=== PATIENT | female | born 1940 | race Two or more races ===

== ENCOUNTER 2016-05-20 19:50 | Emergency (ER) | payer MEDICARE, OTHER ==
[~2016-05-20] VITALS: Ht 152.4 cm; Wt 57.2 kg
[2016-05-20] MEDS ORDERED: IV NORMAL SALINE 500 ML BAG IV ONE (20:15)
[2016-05-20 20:30] LABS: BASOPHILS % (AUTO) 0.3 % (0.0-2.0); EOSINOPHILS # (AUTO) 0.3 K/uL (0.0-0.7); EOSINOPHILS % (AUTO) 5.2 % (0.0-7.0); HEMATOCRIT 34.7 % (37.0-47.0); HEMOGLOBIN 11.9 g/dL (12.0-16.0); LYMPHOCYTES # (AUTO) 2.3 K/uL (0.8-4.8); LYMPHOCYTES % (AUTO) 34.4 % (20.5-51.5); MEAN CORPUSCULAR HEMOGLOBIN 27.3 uug (27.0-31.0); MEAN CORPUSCULAR HGB CONC 34 g/dL (32.0-37.0); MEAN CORPUSCULAR VOLUME 79.8 fL (81.0-99.0); MONOCYTES # (AUTO) 0.5 K/uL (0.1-1.30); NEUTROPHILS # (AUTO) 3.5 K/uL (1.8-8.9); NEUTROPHILS % (AUTO) 52.1 % (38.5-71.5); PLATELET COUNT (AUTO) 213 K/uL (150-450); RED BLOOD CELL COUNT(AUTO) 4.34 MIL/uL (4.20-5.40); RED CELL DISTRIBUTION WIDTH 14.5 % (11.5-14.5); WHITE BLOOD COUNT (AUTO) 6.6 K/uL (4.0-11.2)
[2016-05-20] MEDS ORDERED: AMLO10TA2 PO (20:44)
[2016-05-20] MEDS ORDERED: ATOR10TA PO (20:45)
[2016-05-20] MEDS ORDERED: OMEG1CAP PO (20:46)
[2016-05-20] MEDS ORDERED: LISI-603 PO (20:47)
[2016-05-20] MEDS ORDERED: GEMF600T3 PO (20:47)
[2016-05-20] MEDS ORDERED: METF500T4 PO (20:48)
[2016-05-20] MEDS ORDERED: METO-304 PO (20:49)
[2016-05-20] MEDS ORDERED: WARF3TAB6 PO (20:50)
[2016-05-20 21:23] LABS: POTASSIUM 4.2 mmol/L (3.5-5.1)
[2016-05-20 21:27] LABS: CALCIUM 9.4 mg/dL (8.5-10.1); CREATININE 0.7 mg/dL (0.6-1.3)
[2016-05-20 21:37] LABS: BILIRUBIN,DIRECT 0.1 mg/dL (0.0-0.2); BILIRUBIN,TOTAL 0.3 mg/dL (0.1-1.0)
[2016-05-20 21:38] LABS: ALBUMIN 3.8 g/dL (3.4-5.0); TOTAL PROTEIN, SERUM 7.4 g/dL (6.4-8.2)
--- NOTE | 2016-05-20 21:46 | NUR ---
Patient discharged to home in stable conditon. Written and verbal after care instructions given. Patient verbalizes understanding of instructions. Ambulated from Er with stable gait. All belongings with patient.
[2016-05-20 21:47] VITALS: BP 131/74
== END 2016-05-20 21:47 | disposition home or self-care (01) ==
LOC: ER 19:50
DX: I48.91 Unspecified atrial fibrillation (principal); Z79.01 Long term (current) use of anticoagulants; R07.89 Other chest pain; E11.9 Type 2 diabetes mellitus without complications; Z95.0 Presence of cardiac pacemaker; Z95.2 Presence of prosthetic heart valve
CPT/HCPCS: 36415; 70030-TC; 71010; 85025; 85730; 93005; A4663

== ENCOUNTER 2016-08-31 09:35 | Emergency (ER) | payer MEDICARE, OTHER ==
[~2016-08-31] VITALS: Ht 165.1 cm; Wt 58.0 kg
[~2016-08-31 09:35] MED LIST: AMLO10TA2 PO; ATOR10TA PO; GEMF600T3 PO; LISI-603 PO; METF500T4 PO; METO-304 PO; OMEG1CAP PO; WARF3TAB6 PO
[2016-08-31] MEDS ORDERED: DICY10CA59 PO (09:49)
[2016-08-31] MEDS ORDERED: CLON1TAB4 PO (09:49)
--- NOTE | 2016-08-31 09:52 | NUR ---
PT IS IN ROOM #2A. DR CORDOVA EVALUATED THE PT.
[2016-08-31] MEDS: CLONIDINE HCL 0.2 MG TABLET PO ONE (09:55)
[2016-08-31] MEDS ORDERED: CLONIDINE HCL 0.2 MG TABLET ONE (10:05)
--- NOTE | 2016-08-31 10:58 | NUR ---
pt was d/c to home. d/c instructions given to the pt.
[2016-08-31 10:59] VITALS: BP 146/69
== END 2016-08-31 11:00 | disposition home or self-care (01) ==
LOC: ER 09:35
DX: I10 Essential (primary) hypertension (principal); E11.9 Type 2 diabetes mellitus without complications; I48.91 Unspecified atrial fibrillation; F17.200 Nicotine dependence, unspecified, uncomplicated; Z95.0 Presence of cardiac pacemaker; E78.5 Hyperlipidemia, unspecified; Z79.01 Long term (current) use of anticoagulants; Z95.2 Presence of prosthetic heart valve
CPT/HCPCS: 93005; A4663

== ENCOUNTER 2018-01-06 10:49 | Inpatient (IN) | payer MEDICARE, OTHER ==
[~2018-01-06] VITALS: Ht 152.4 cm; Wt 60.8 kg
[~2018-01-06 10:49] MED LIST changes: -AMLO10TA2 PO; +AMLO10TA6 PO; +CLON1TAB12 PO; +DICY10CA59 PO; -GEMF600T3 PO; +GEMF600T4 PO; +METF-440 PO; -METF500T4 PO; -METO-304 PO; +METO-357 PO; +WARF3TAB59 PO; -WARF3TAB6 PO
[2018-01-06] MEDS ORDERED: D-ME118S12 PO (11:07)
[2018-01-06] MEDS ORDERED: CARV12.52 PO (11:07)
[2018-01-06] MEDS ORDERED: MIRT15TA7 PO (11:07)
[2018-01-06] MEDS ORDERED: PREG50CA PO (11:07)
[2018-01-06] MEDS ORDERED: PANT40TA4 PO (11:07)
[2018-01-06] MEDS ORDERED: LORA1TAB PO (11:07)
[2018-01-06] MEDS: methylPREDNISolone SOD SUCC 125 MG/2 ML VIAL IV ONE ×2 (11:11→11:16)
[2018-01-06] MEDS ORDERED: methylPREDNISolone SOD SUCC 125 MG/2 ML VIAL ONE (11:13)
[2018-01-06] MEDS ORDERED: IPRATROPIUM BROMIDE 0.5 MG/2.5 ML NEBU NEB ONE (11:15)
[2018-01-06] MEDS ORDERED: IPRATROPIUM BROMIDE 0.5 MG/2.5 ML NEBU ONE (11:15)
[2018-01-06] MEDS ORDERED: ALBUTEROL SULFATE 2.5 MG/3 ML NEBU NEB ONE (11:15)
[2018-01-06] MEDS ORDERED: ALBUTEROL SULFATE 2.5 MG/ 0.5 ML NEBU ONE (11:15)
[2018-01-06] MEDS ORDERED: IV NORMAL SALINE 500 ML BAG IV ONE (11:15)
[2018-01-06 11:40] LABS: BASOPHILS # (AUTO) 0.1 K/uL (0.0-8.0); EOSINOPHILS # (AUTO) 0.1 K/uL (0.0-0.7); EOSINOPHILS % (AUTO) 1.1 % (0.0-7.0); HEMATOCRIT 40.6 % (31.2-41.9); HEMOGLOBIN 13.8 g/dL (10.9-14.3); LYMPHOCYTES % (AUTO) 17.5 % (20.5-51.5); MEAN CORPUSCULAR HEMOGLOBIN 27.7 uug (24.7-32.8); MEAN CORPUSCULAR HGB CONC 34 g/dL (32.3-35.6); MEAN CORPUSCULAR VOLUME 81.3 fL (75.5-95.3); MONOCYTES # (AUTO) 0.6 K/uL (2.0-10.0); MONOCYTES % (AUTO) 10.7 % (0.0-11.0); NEUTROPHILS % (AUTO) 69.7 % (38.5-71.5); PLATELET COUNT (AUTO) 206 K/uL (179-408); RED BLOOD CELL COUNT(AUTO) 4.99 MIL/uL (3.63-4.92); WHITE BLOOD COUNT (AUTO) 5.8 K/uL (3.8-11.8)
[2018-01-06 11:44] LABS: CARBON DIOXIDE 28 mmol/L (21-32); CHLORIDE 95 mmol/L (98-107); GLUCOSE 158 mg/dL (74-106); POTASSIUM 4.3 mmol/L (3.5-5.1); UREA NITROGEN, BLOOD 12 mg/dL (7-18)
[2018-01-06 11:57] LABS: ALANINE AMINOTRANSFERASE 20 U/L (14-59); ALKALINE PHOSPHATASE 43 U/L (50-136); ASPARTATE AMINOTRANSFERASE 22 U/L (15-37); BILIRUBIN,DIRECT 0.2 mg/dL (0.0-0.2); BILIRUBIN,TOTAL 0.6 mg/dL (0.2-1.0)
[2018-01-06] MEDS ORDERED: LEVOFLOXACIN 750MG/D5W 150 ML IV ONE ×2 (12:15)
[2018-01-06] MEDS ORDERED: LORAZEPAM 1 MG TABLET PO PRN (12:15)
[2018-01-06] MEDS ORDERED: DEXTROSE 50% 50 ML DISP.SYRIN IV PRN (12:30)
[2018-01-06] MEDS ORDERED: ONDANSETRON 4 MG/2 ML VIAL IV PRN (12:30)
[2018-01-06] MEDS ORDERED: LEVOFLOXACIN 750MG/D5W 750 MG in PREMIXED 1 EACH IV SCH (12:30)
[2018-01-06] MEDS ORDERED: HYDROCODONE/APAP 5-325MG TABLET PO PRN (12:30)
[2018-01-06] MEDS ORDERED: IPRATROPIUM BROMIDE 0.5 MG/2.5 ML NEBU NEB PRN (12:30)
[2018-01-06] MEDS ORDERED: ALBUTEROL SULFATE 2.5 MG/3 ML NEBU NEB PRN (12:30)
[2018-01-06] MEDS ORDERED: Z GUARD REMEDY PASTE 57 GM TUBE TOP PRN (12:30)
[2018-01-06] MEDS ORDERED: ACETAMINOPHEN 325 MG TABLET PO PRN (12:30)
[2018-01-06 13:00] VITALS: BP 166/92
[2018-01-06] MEDS: BLOOD SUGAR DIAGNOSTIC 1 EACH STRIP VI SCH ×3 (13:00→20:30)
[2018-01-06] MEDS: GUAIFENESIN LA 600 MG TABLET.SA PO SCH ×2 (13:43→20:29)
[2018-01-06] MEDS: methylPREDNISolone SOD SUCC 125 MG/2 ML VIAL IV SCH ×2 (13:46→21:58)
[2018-01-06 15:41] VITALS: BP 175/115
[2018-01-06] MEDS: LISINOPRIL 20 MG TABLET PO SCH (16:02)
[2018-01-06] MEDS: CARVEDILOL 25 MG TABLET PO SCH (17:08)
[2018-01-06] MEDS: METFORMIN HCL 500 MG TABLET PO SCH (17:08)
[2018-01-06] MEDS: INSULIN REGULAR, HUMAN 300 UNIT/3 ML VIAL SQ PRN ×2 (17:09→20:32)
[2018-01-06] MEDS ORDERED: CARVEDILOL 12.5 MG TABLET PO SCH (18:00)
[2018-01-06 18:36] LABS: *BILIRUBIN,URIN NEGATIVE (NEGATIVE); *BLOOD, URINE Trace-intact (NEGATIVE); *COLOR,URINE YELLOW (YELLOW); *KETONES,URINE NEGATIVE (NEGATIVE); *PROTEIN,URINE 2+ (NEGATIVE); *UROBILINOGEN,URINE 0.2 E.U./dl (NORMAL); LEUKOCYTE ESTERASE ,URINE TRACE (NEGATIVE); NITRITE, URINE NEGATIVE (NEGATIVE); UGLUCOSE NEGATIVE (NEGATIVE)
[2018-01-06 20:00] LABS: *CLARITY,URINE SLIGHTLY HAZY (CLEAR)
[2018-01-06 20:23] VITALS: BP 134/77
[2018-01-06] MEDS: MIRTAZAPINE 15 MG TABLET PO SCH (20:29)
[2018-01-06 20:33] LABS: MUCUS,URINE FEW /LPF (0-FEW); SQUAMOUS EPITHELIAL CELL,UR MODERATE /HPF (NONE SEEN)
[2018-01-07 00:06] VITALS: BP 132/65
[2018-01-07 04:00] VITALS: BP 149/65
[2018-01-07] MEDS: methylPREDNISolone SOD SUCC 125 MG/2 ML VIAL IV SCH ×3 (06:25→21:20)
[2018-01-07] MEDS: BLOOD SUGAR DIAGNOSTIC 1 EACH STRIP VI SCH ×4 (06:28→20:35)
[2018-01-07 06:38] LABS: BASOPHILS % (AUTO) 0.5 % (0.0-2.0); HEMATOCRIT 34.9 % (31.2-41.9); HEMOGLOBIN 12.4 g/dL (10.9-14.3); LYMPHOCYTES # (AUTO) 0.7 K/uL (20.0-40.0); MEAN CORPUSCULAR HEMOGLOBIN 27.8 uug (24.7-32.8); MEAN CORPUSCULAR HGB CONC 35 g/dL (32.3-35.6); MEAN CORPUSCULAR VOLUME 78.7 fL (75.5-95.3); MONOCYTES # (AUTO) 0.2 K/uL (2.0-10.0); MONOCYTES % (AUTO) 6.4 % (0.0-11.0); NEUTROPHILS # (AUTO) 2.5 K/uL (1.8-8.9); NEUTROPHILS % (AUTO) 72.1 % (38.5-71.5); PLATELET COUNT (AUTO) 186 K/uL (179-408); RED BLOOD CELL COUNT(AUTO) 4.44 MIL/uL (3.63-4.92); WHITE BLOOD COUNT (AUTO) 3.4 K/uL (3.8-11.8)
[2018-01-07 07:06] LABS: THYROID STIMULATING HORMONE 0.517 mIU/mL (0.358-3.740)
[2018-01-07 07:08] LABS: CARBON DIOXIDE 27 mmol/L (21-32); CHLORIDE 93 mmol/L (98-107); CHOLESTEROL 176 mg/dL (<200); CREATININE 0.8 mg/dL (0.6-1.3); GLUCOSE 173 mg/dL (74-106); HDL CHOLESTEROL 90 mg/dL (40-60); MAGNESIUM 1.3 mg/dL (1.8-2.4); PHOSPHOROUS 3.6 mg/dL (2.5-4.9); POTASSIUM 3.6 mmol/L (3.5-5.1); TRIGLYCERIDES 66 MG/DL (30-150); UREA NITROGEN, BLOOD 17 mg/dL (7-18)
[2018-01-07] MEDS: CARVEDILOL 25 MG TABLET PO SCH ×2 (08:11→17:20)
[2018-01-07] MEDS: METFORMIN HCL 500 MG TABLET PO SCH ×2 (08:11→17:18)
[2018-01-07] MEDS: MAGNESIUM SULFATE/D5W 100 ML IV SCH ×2 (08:44→09:37)
[2018-01-07] MEDS: GUAIFENESIN LA 600 MG TABLET.SA PO SCH ×2 (08:46→20:31)
[2018-01-07] MEDS: ATORVASTATIN 10 MG TABLET PO SCH (08:46)
[2018-01-07] MEDS: PANTOPRAZOLE SODIUM 40 MG TABLET.DR PO SCH (08:46)
[2018-01-07] MEDS: GEMFIBROZIL 600 MG TABLET PO SCH (08:46)
[2018-01-07] MEDS: AMLODIPINE 10 MG TABLET PO SCH (08:47)
[2018-01-07] MEDS: LISINOPRIL 20 MG TABLET PO SCH ×2 (08:47→17:19)
[2018-01-07 11:19] VITALS: BP 115/58
[2018-01-07] MEDS: INSULIN REGULAR, HUMAN 300 UNIT/3 ML VIAL SQ PRN ×3 (11:28→20:40)
[2018-01-07 15:13] VITALS: BP 109/71
[2018-01-07 19:53] VITALS: BP 103/56
[2018-01-07] MEDS: MIRTAZAPINE 15 MG TABLET PO SCH (20:31)
[2018-01-08 05:16] VITALS: BP 136/71
[2018-01-08] MEDS: methylPREDNISolone SOD SUCC 125 MG/2 ML VIAL IV SCH (06:19)
[2018-01-08] MEDS: BLOOD SUGAR DIAGNOSTIC 1 EACH STRIP VI SCH ×2 (06:26→11:35)
[2018-01-08 06:42] LABS: BASOPHILS % (AUTO) 0.1 % (0.0-2.0); HEMATOCRIT 34.7 % (31.2-41.9); HEMOGLOBIN 12.3 g/dL (10.9-14.3); LYMPHOCYTES # (AUTO) 0.9 K/uL (20.0-40.0); LYMPHOCYTES % (AUTO) 11.3 % (20.5-51.5); MEAN CORPUSCULAR HEMOGLOBIN 27.5 uug (24.7-32.8); MEAN CORPUSCULAR HGB CONC 35 g/dL (32.3-35.6); MEAN CORPUSCULAR VOLUME 77.8 fL (75.5-95.3); MONOCYTES # (AUTO) 0.4 K/uL (2.0-10.0); MONOCYTES % (AUTO) 4.6 % (0.0-11.0); NEUTROPHILS # (AUTO) 6.7 K/uL (1.8-8.9); PLATELET COUNT (AUTO) 229 K/uL (179-408); RED BLOOD CELL COUNT(AUTO) 4.46 MIL/uL (3.63-4.92)
[2018-01-08 06:54] LABS: CARBON DIOXIDE 27 mmol/L (21-32); CHLORIDE 91 mmol/L (98-107); CREATININE 0.7 mg/dL (0.6-1.3); GLUCOSE 124 mg/dL (74-106); MAGNESIUM 1.8 mg/dL (1.8-2.4); PHOSPHOROUS 4.5 mg/dL (2.5-4.9); POTASSIUM 4.1 mmol/L (3.5-5.1); UREA NITROGEN, BLOOD 21 mg/dL (7-18)
[2018-01-08] MEDS: CARVEDILOL 25 MG TABLET PO SCH (07:56)
[2018-01-08] MEDS: GUAIFENESIN LA 600 MG TABLET.SA PO SCH (08:00)
[2018-01-08] MEDS: GEMFIBROZIL 600 MG TABLET PO SCH (08:00)
[2018-01-08] MEDS: LISINOPRIL 20 MG TABLET PO SCH (08:00)
[2018-01-08] MEDS: METFORMIN HCL 500 MG TABLET PO SCH (08:00)
[2018-01-08] MEDS: ATORVASTATIN 10 MG TABLET PO SCH (08:00)
[2018-01-08] MEDS: AMLODIPINE 10 MG TABLET PO SCH (08:00)
[2018-01-08] MEDS: PANTOPRAZOLE SODIUM 40 MG TABLET.DR PO SCH (08:00)
[2018-01-08] MEDS ORDERED: LEVO500T2 PO (10:55)
[2018-01-08 11:00] VITALS: BP 113/51
[2018-01-08] MEDS: INSULIN REGULAR, HUMAN 300 UNIT/3 ML VIAL SQ PRN (11:43)
[2018-01-08] MEDS ORDERED: LEVOFLOXACIN 750 MG TABLET PO SCH (12:00)
[2018-01-08] MEDS ORDERED: LEVOFLOXACIN 750MG/D5W 750 MG in PREMIXED 1 EACH IV SCH (12:00)
[2018-01-08 13:31] VITALS: BP 113/65
== END 2018-01-08 12:30 | disposition home or self-care (01) | DRG 202 ==
LOC: ER 10:52 → TELE 12:28 → MED 01-07 20:15
DX: J20.9 Acute bronchitis, unspecified (principal); E87.1 Hypo-osmolality and hyponatremia; I48.91 Unspecified atrial fibrillation; Z95.3 Presence of xenogenic heart valve; E11.9 Type 2 diabetes mellitus without complications; E78.5 Hyperlipidemia, unspecified; I10 Essential (primary) hypertension; I70.0 Atherosclerosis of aorta; T45.515A Adverse effect of anticoagulants, initial encounter; Y92.019 Unspecified place in single-family (private) house as the place of occurrence of the external cause; R79.1 Abnormal coagulation profile; Z95.0 Presence of cardiac pacemaker; Z79.84 Long term (current) use of oral hypoglycemic drugs
CPT/HCPCS: 36415; 70030-TC; 71045; 83605; 83735; 84100; 84443; 85025; 85610; 85730; 87040; 87086; 87400; 93005; 93307; A4663; G0378; J1815; J1956; J2930; J3475; J3490; J3590; J7040

== ENCOUNTER 2018-03-29 21:39 | Inpatient (IN) | payer MEDICARE, OTHER ==
[~2018-03-29] VITALS: Ht 165.1 cm; Wt 61.2 kg
[~2018-03-29 21:39] MED LIST changes: -AMLO10TA6 PO; +AMLO10TA7 PO; +CARV12.52 PO; -CLON1TAB12 PO; +D-ME118S12 PO; -DICY10CA59 PO; -GEMF600T4 PO; +GEMF600T5 PO; +LEVO500T2 PO; +LORA1TAB PO; -METO-357 PO; +MIRT15TA7 PO; -OMEG1CAP PO; +PANT40TA4 PO; +PREG50CA PO
--- NOTE | 2018-03-29 21:56 | NUR ---
Pt. ambulated into ED w/ family w/ c/o posterior R side ASHER since this morning, states she was diaphoretic 30 min. ago, skin is warm/dry/turgor WDL, denies visual defecits/changes, facial movements and strength are equal/symmetrical bilat., family at bedside, Addendum: 03/30/18 at 0009 by BKSCOTT Pt. ESSIE RA 909, not family
[2018-03-29] MEDS ORDERED: FOLI1TAB16 PO (22:02)
[2018-03-29] MEDS ORDERED: ESCI5TAB PO (22:02)
[2018-03-29] MEDS ORDERED: FERR325T24 PO (22:02)
[2018-03-29] MEDS ORDERED: MORPHINE SULFATE 2 MG/1 ML DISP.SYRIN IV ONE (22:15)
[2018-03-29] MEDS ORDERED: hydrALAZINE HCL 20 MG/1 ML VIAL IV ONE ×2 (22:15→23:00)
[2018-03-29] MEDS ORDERED: ONDANSETRON 4 MG/2 ML VIAL IV ONE (22:15)
[2018-03-29] MEDS ORDERED: ONDANSETRON 4 MG/2 ML VIAL ONE ×3 (22:28→23:57)
[2018-03-29] MEDS ORDERED: MORPHINE SULFATE 4 MG/1 ML DISP.SYRIN ONE (22:28)
--- NOTE | 2018-03-29 22:28 | NUR ---
Rad. tech. here for CXR
[2018-03-29 22:36] LABS: BASOPHILS % (AUTO) 0.7 % (0.0-2.0); CARBON DIOXIDE 29 mmol/L (21-32); CHLORIDE 91 mmol/L (98-107); CREATININE 0.7 mg/dL (0.6-1.3); EOSINOPHILS # (AUTO) 0.4 K/uL (0.0-0.7); EOSINOPHILS % (AUTO) 6.1 % (0.0-7.0); GLUCOSE 148 mg/dL (74-106); HEMATOCRIT 34.1 % (31.2-41.9); HEMOGLOBIN 11.6 g/dL (10.9-14.3); LYMPHOCYTES # (AUTO) 2.2 K/uL (20.0-40.0); LYMPHOCYTES % (AUTO) 31.7 % (20.5-51.5); MEAN CORPUSCULAR HEMOGLOBIN 26.7 uug (24.7-32.8); MEAN CORPUSCULAR HGB CONC 34 g/dL (32.3-35.6); MEAN CORPUSCULAR VOLUME 78.5 fL (75.5-95.3); MONOCYTES # (AUTO) 0.7 K/uL (2.0-10.0); MONOCYTES % (AUTO) 9.7 % (0.0-11.0); NEUTROPHILS # (AUTO) 3.6 K/uL (1.8-8.9); NEUTROPHILS % (AUTO) 51.8 % (38.5-71.5); PLATELET COUNT (AUTO) 226 K/uL (179-408); POTASSIUM 3.7 mmol/L (3.5-5.1); RED BLOOD CELL COUNT(AUTO) 4.35 MIL/uL (3.63-4.92); UREA NITROGEN, BLOOD 9 mg/dL (7-18)
[2018-03-29] MEDS ORDERED: hydrALAZINE HCL 20 MG/1 ML VIAL ONE (22:38)
[2018-03-29 22:47] LABS: ALANINE AMINOTRANSFERASE 18 U/L (14-59); ALKALINE PHOSPHATASE 51 U/L (50-136); ASPARTATE AMINOTRANSFERASE 19 U/L (15-37); BILIRUBIN,DIRECT 0.2 mg/dL (0.0-0.2); BILIRUBIN,TOTAL 0.5 mg/dL (0.2-1.0); TOTAL PROTEIN, SERUM 8.2 g/dL (6.4-8.2)
--- NOTE | 2018-03-29 22:47 | NUR ---
Pt. taken off unit for CT
[2018-03-29] MEDS ORDERED: ACETAMINOPHEN ES 500 MG TABLET PO ONE (23:30)
[2018-03-29] MEDS ORDERED: PANTOPRAZOLE SODIUM 40 MG VIAL ONE (23:52)
[2018-03-29] MEDS ORDERED: ACETAMINOPHEN ES 500 MG TABLET ONE (23:52)
[2018-03-30] MEDS ORDERED: PANTOPRAZOLE SODIUM 40 MG VIAL IV ONE
[2018-03-30] MEDS ORDERED: ONDANSETRON 4 MG/2 ML VIAL IV ONE
--- NOTE | 2018-03-30 00:05 | NUR ---
Gave pt. warm blanket, c/o gas/bloating - notified MD -IV meds given, IV patent - no s/s infiltration/phlebitis,
--- NOTE | 2018-03-30 00:40 | NUR ---
Pt. resting in bed w/ eyes closed, NAD, IV patent and intact w/o any s/s infiltration/phlebitis, VSS, NAD,
--- NOTE | 2018-03-30 01:19 | NUR ---
Gave report to Laura, pt. to admit to tele 203
--- NOTE | 2018-03-30 01:45 | NUR ---
Pt. taken off unit via stretcher, taken to room 203 and given to care of Laura PIKE, NAD, VSS
[2018-03-30 01:51] VITALS: BP 184/76
[2018-03-30] MEDS ORDERED: MAGNESIUM HYDROXIDE 30 ML LIQUID UDC PO PRN (02:00)
[2018-03-30] MEDS ORDERED: MIRTAZAPINE 15 MG TABLET PO SCH (02:00)
[2018-03-30] MEDS ORDERED: LORAZEPAM 1 MG TABLET PO PRN (02:00)
[2018-03-30] MEDS ORDERED: ACETAMINOPHEN 325 MG TABLET PO PRN (02:00)
[2018-03-30] MEDS ORDERED: ONDANSETRON 4 MG/2 ML VIAL IV PRN (02:00)
[2018-03-30] MEDS ORDERED: LISINOPRIL 20 MG TABLET PO SCH (02:00)
[2018-03-30] MEDS ORDERED: ZOLPIDEM 5 MG TABLET PO PRN (02:00)
[2018-03-30] MEDS ORDERED: HYDROCODONE/APAP 5-325MG TABLET PO PRN (02:00)
--- NOTE | 2018-03-30 02:00 | NUR ---
RECEIVED PATIENT VIA GURNEY FROM ER. PATIENT IS A/O X4. PATIENT DENIES ANY PAIN OR DISCOMFORT. NO RESP. DISTRESS NOTED. H/L INTACT AND PATENT NOTED TO LEFT AC #20 GAUGE. PATIENT BLOOD PRESSURE, 184/76, ALL OTHER VS WNL. PATIENT IS ON TELE V-PACING. CALLED OUT TO PATIENCE DIETRICH-MACHINE GROUP LEADER FOR ADMISSION ORDERS, AND TO INFORM OF ELEVATED BP. ORIENTED TO ROOM AND CALL LIGHT. CALL LIGHT IN REACH. ALL NEEDS ATTENDED. WILL CONTINUE TO MONITOR.
[2018-03-30] MEDS: NICOTINE 21 MG/24HR PATCH TD SCH ×2 (02:10→09:00)
[2018-03-30] MEDS ORDERED: hydrALAZINE HCL 20 MG/1 ML VIAL IV PRN (02:15)
[2018-03-30] MEDS: CARVEDILOL 12.5 MG TABLET PO SCH ×3 (02:20→17:51)
--- NOTE | 2018-03-30 02:20 | NUR ---
PATIENT GIVEN BLOOD PRESSURE MEDICATION ORDERED PER RUSSEL GONSALEZ. WILL CONTINUE TO MONITOR AND ASSESS VITALS. CALL LIGHT IN REACH. IVF INFUSING WELL TO LEFT AC #20 GAUGE.
[2018-03-30] MEDS: IV NS 1000 ML 1,000 ML IV PRN ×2 (02:25→18:01)
[2018-03-30] MEDS ORDERED: DEXTROSE 50% 50 ML DISP.SYRIN IV PRN (02:45)
[2018-03-30 04:47] VITALS: BP 131/53
--- NOTE | 2018-03-30 06:11 | NUR ---
PATIENT ASLEEP IN BED. VSS. ON TELE V-PACING. IVF INFUSING WELL. CALL LIGHT IN REACH. ALL NEEDS ATTENDED. WILL CONTINUE TO MONITOR.
[2018-03-30] MEDS: BLOOD SUGAR DIAGNOSTIC 1 EACH STRIP VI SCH ×4 (06:31→20:18)
[2018-03-30 06:43] LABS: BASOPHILS % (AUTO) 0.7 % (0.0-2.0); EOSINOPHILS # (AUTO) 0.3 K/uL (0.0-0.7); EOSINOPHILS % (AUTO) 4.7 % (0.0-7.0); HEMATOCRIT 32.1 % (31.2-41.9); HEMOGLOBIN 10.8 g/dL (10.9-14.3); LYMPHOCYTES # (AUTO) 1.8 K/uL (20.0-40.0); LYMPHOCYTES % (AUTO) 30.9 % (20.5-51.5); MEAN CORPUSCULAR HEMOGLOBIN 26.5 uug (24.7-32.8); MEAN CORPUSCULAR HGB CONC 34 g/dL (32.3-35.6); MEAN CORPUSCULAR VOLUME 78.5 fL (75.5-95.3); MONOCYTES # (AUTO) 0.6 K/uL (2.0-10.0); MONOCYTES % (AUTO) 10.2 % (0.0-11.0); NEUTROPHILS # (AUTO) 3.1 K/uL (1.8-8.9); NEUTROPHILS % (AUTO) 53.5 % (38.5-71.5); PLATELET COUNT (AUTO) 212 K/uL (179-408); RED BLOOD CELL COUNT(AUTO) 4.08 MIL/uL (3.63-4.92); WHITE BLOOD COUNT (AUTO) 5.9 K/uL (3.8-11.8)
[2018-03-30 06:56] LABS: CARBON DIOXIDE 29 mmol/L (21-32); CHLORIDE 94 mmol/L (98-107); CHOLESTEROL 154 mg/dL (<200); CREATININE 0.6 mg/dL (0.6-1.3); GLUCOSE 132 mg/dL (74-106); HDL CHOLESTEROL 89 mg/dL (40-60); MAGNESIUM 1.5 mg/dL (1.8-2.4); PHOSPHOROUS 3.8 mg/dL (2.5-4.9); POTASSIUM 3.5 mmol/L (3.5-5.1); TRIGLYCERIDES 75 MG/DL (30-150); UREA NITROGEN, BLOOD 7 mg/dL (7-18)
--- NOTE | 2018-03-30 07:30 | NUR ---
RECEIVED A 77 Y/O FEMALE PT A CASE OF HTN, PT ALERT OX3, IN BED, PT CONNECTED TO TELE BOX, HAS A LT CHEST PACEMAKER SHOWING V-PACING RATE 66BPM. PT HAS A RT FOREARM IV PATENT, RECEIVING IVF NS@75ML/HR. USES BATHROOM PRIVILEGES.
[2018-03-30 08:00] VITALS: BP 185/74
[2018-03-30] MEDS: FOLIC ACID 1 MG TABLET PO SCH (08:18)
[2018-03-30] MEDS: AMLODIPINE 10 MG TABLET PO SCH (08:18)
[2018-03-30] MEDS: ESCITALOPRAM OXALATE 10 MG TABLET PO SCH (08:18)
[2018-03-30] MEDS: PANTOPRAZOLE SODIUM 40 MG TABLET.DR PO SCH (08:19)
[2018-03-30] MEDS: FERROUS SULFATE 325 MG TABEC PO SCH (08:19)
[2018-03-30] MEDS: INSULIN REGULAR, HUMAN 300 UNIT/3 ML VIAL SQ PRN ×3 (08:26→20:18)
[2018-03-30] MEDS ORDERED: WARFARIN SODIUM 3 MG TABLET PO SCH (09:00)
[2018-03-30] MEDS ORDERED: PANTOPRAZOLE SODIUM 40 MG TABLET.DR PO SCH (09:00)
--- NOTE | 2018-03-30 09:00 | NUR ---
PATIENT REFUSED NICOTINE PATCH, STATED SHE DOESNT HAVE THE URGE TO SMOKE.
[2018-03-30] MEDS ORDERED: LOSARTAN POTASSIUM 50 MG TABLET PO SCH (10:30)
[2018-03-30] MEDS ORDERED: MAGNESIUM SULFATE 2 GM in IV DEXTROSE 5% 100 ML IV ONE (11:00)
--- NOTE | 2018-03-30 11:00 | NUR ---
SEEN BY CARYL TILLMAN, ALL UPDATES GIVEN , NEW MEDICATION PUT IN, ASKED TO INFORM HIM AFTER 3PM ABOUT BP IF ACCEPTABLE SBP <150. HE WOULD CONSIDER DISCHARGING HER
[2018-03-30] MEDS: MAGNESIUM SULFATE/D5W 100 ML IV SCH ×2 (11:21→13:06)
[2018-03-30] MEDS: PRAZOSIN HCL 1 MG CAPSULE PO SCH (11:47)
[2018-03-30] MEDS: LISINOPRIL 20 MG TABLET PO SCH ×2 (11:48→22:50)
[2018-03-30 11:50] VITALS: BP 164/70
[2018-03-30 15:56] VITALS: BP 140/60
--- NOTE | 2018-03-30 17:30 | NUR ---
LAYNEYESSY INFORMED ABOUT PATIENTS BP STILL FLUCTUATING AND BEING HIGH, ORDERED TO LEAVE THE PATIENT OVERNIGHT AND RE-ASSESS PATIENT IN THE MORNING.
[2018-03-30] MEDS: WARFARIN SODIUM 1 MG TABLET PO SCH (17:51)
[2018-03-30 20:03] VITALS: BP 146/57
--- NOTE | 2018-03-30 20:30 | NUR ---
RECEIVED PATIENT AWAKE IN BED. A/O X4. DENIES PAIN OR DISCOMFORT. ON TELE V-PACING IN THE 60'S. IVF INFUSING WELL TO LEFT AC #20 GAUGE. NO RESP. DISTRESS NOTED. BLOOD SUGAR- 135. PATIENT REFUSED FOR INSULIN. CALL LIGHT IN REACH. ALL NEEDS ATTENDED. WILL CONTINUE TO MONITOR AND ASSESS.
[2018-03-30] MEDS: MIRTAZAPINE 15 MG TABLET PO SCH (21:24)
[2018-03-31] VITALS (9 sets, daily range): BP systolic 106–199; BP diastolic 44–83
--- NOTE | 2018-03-31 | NUR ---
PATIENT NPO ORDERED FOR RENAL US IN AM.
--- NOTE | 2018-03-31 01:16 | NUR ---
PATIENTS IV NOTED TO LEFT AC, INFILTRATED AND RED. REMOVED. PATIENT REFUSING FOR IV REINSERTION OR FOR FLUIDS AT THIS TIME. TANKROOM TENDER NOTIFIED.
--- NOTE | 2018-03-31 05:51 | NUR ---
PATIENT ASLEEP IN BED. EASILY AROUSABLE. SLEPT WELL THROUGHOUT THE NIGHT. KEPT NPO ORDERED FOR RENAL US IN AM. DENIES PAIN. VSS. ON TELE V-PACING. CALL LIGHT IN REACH. ALL NEEDS ATTENDED. WILL CONTINUE TO MONITOR AND ASSESS.
[2018-03-31] MEDS: PANTOPRAZOLE SODIUM 40 MG TABLET.DR PO SCH (06:09)
[2018-03-31] MEDS: BLOOD SUGAR DIAGNOSTIC 1 EACH STRIP VI SCH ×4 (06:33→20:12)
[2018-03-31 06:41] LABS: BASOPHILS % (AUTO) 0.8 % (0.0-2.0); CARBON DIOXIDE 29 mmol/L (21-32); CHLORIDE 96 mmol/L (98-107); CREATININE 0.7 mg/dL (0.6-1.3); EOSINOPHILS # (AUTO) 0.2 K/uL (0.0-0.7); EOSINOPHILS % (AUTO) 3.9 % (0.0-7.0); GLUCOSE 115 mg/dL (74-106); HEMATOCRIT 33.9 % (31.2-41.9); HEMOGLOBIN 11.2 g/dL (10.9-14.3); LYMPHOCYTES % (AUTO) 33.7 % (20.5-51.5); MEAN CORPUSCULAR HEMOGLOBIN 25.9 uug (24.7-32.8); MEAN CORPUSCULAR HGB CONC 33 g/dL (32.3-35.6); MEAN CORPUSCULAR VOLUME 78.5 fL (75.5-95.3); MONOCYTES # (AUTO) 0.6 K/uL (2.0-10.0); MONOCYTES % (AUTO) 9.6 % (0.0-11.0); PLATELET COUNT (AUTO) 220 K/uL (179-408); POTASSIUM 3.4 mmol/L (3.5-5.1); RED BLOOD CELL COUNT(AUTO) 4.31 MIL/uL (3.63-4.92); UREA NITROGEN, BLOOD 6 mg/dL (7-18); WHITE BLOOD COUNT (AUTO) 5.9 K/uL (3.8-11.8)
[2018-03-31 06:55] LABS: THYROID STIMULATING HORMONE 1.033 mIU/mL (0.358-3.740)
--- NOTE | 2018-03-31 07:20 | NUR ---
RECEIVED PATIENT LYING IN BED. IN NO ACUTE DISTRESS. NO COMPLAINTS OF PAIN OR SOB. A LITTLE ANXIOUS BECAUSE SHE HASN'T EATEN. IS CURRENTLY NPO BECAUSE OF PROCEDURE FOR RENAL US. SAFETY MEASURES INITIATED. BED IS LOW AND LOCKED, CALL LIGHT WITHIN REACH/ WILL CONTINUE TO MONITOR.
[2018-03-31] MEDS: ESCITALOPRAM OXALATE 10 MG TABLET PO SCH (09:00)
[2018-03-31] MEDS: NICOTINE 21 MG/24HR PATCH TD SCH (09:00)
[2018-03-31] MEDS ORDERED: POTASSIUM CHLORIDE 10 MEQ TAB.PRT.SR PO SCH (09:00)
[2018-03-31] MEDS: CARVEDILOL 12.5 MG TABLET PO SCH ×2 (09:59→17:52)
[2018-03-31] MEDS: FOLIC ACID 1 MG TABLET PO SCH (09:59)
--- NOTE | 2018-03-31 10:00 | NUR ---
RENAL US DONE. ALL MORNING MEDICATIONS GIVEN. FAMILY IS AT BEDSIDE. WILL CONTINUE TO MONITOR.
[2018-03-31] MEDS: FERROUS SULFATE 325 MG TABEC PO SCH (10:01)
[2018-03-31] MEDS: AMLODIPINE 10 MG TABLET PO SCH (10:01)
[2018-03-31] MEDS: LISINOPRIL 20 MG TABLET PO SCH ×2 (10:01→20:07)
[2018-03-31] MEDS: PRAZOSIN HCL 1 MG CAPSULE PO SCH (10:04)
[2018-03-31] MEDS: SPIRONOLACTONE 25 MG TABLET PO SCH (11:04)
[2018-03-31] MEDS: INSULIN REGULAR, HUMAN 300 UNIT/3 ML VIAL SQ PRN (11:22)
[2018-03-31] MEDS ORDERED: hydrALAZINE HCL 10 MG TABLET PO PRN (11:45)
[2018-03-31] MEDS: WARFARIN SODIUM 1 MG TABLET PO SCH (17:08)
[2018-03-31] MEDS ORDERED: CARVEDILOL 12.5 MG TABLET PO ONE (18:15)
--- NOTE | 2018-03-31 18:36 | NUR ---
Discussed with Dr Jalloh patient blood pressure this am then dramatic drop post meds, concerned with additional dose of Coreg 12.5mg once ordered now however vitals stable at this time. per MD do not administer continue to monitor.
--- NOTE | 2018-03-31 19:20 | NUR ---
Received patient lying in bed. Appears comfortable. AAOX4. In no acute distress. Denies any pain or SOB. Needs assessed and attended to. Safety measure initiated and call gonsalves within reach.
[2018-03-31] MEDS: MIRTAZAPINE 15 MG TABLET PO SCH (20:07)
[2018-04-01] VITALS (9 sets, daily range): BP systolic 90–187; BP diastolic 27–79
[2018-04-01] MEDS: PANTOPRAZOLE SODIUM 40 MG TABLET.DR PO SCH (06:02)
[2018-04-01 06:10] LABS: CORTISOL 11.5 ug/dL (.)
--- NOTE | 2018-04-01 06:12 | NUR ---
Patient slept through out the night. No complain of pain or SOB. Needs attended to and met. Safety measure maintained and call gonsalves within reach.
[2018-04-01] MEDS: BLOOD SUGAR DIAGNOSTIC 1 EACH STRIP VI SCH ×2 (06:32→12:17)
--- NOTE | 2018-04-01 06:45 | NUR ---
Patient refused to have blood work done this morning. Education provided but continue to refuse.
[2018-04-01] MEDS ORDERED: CARVEDILOL 12.5 MG TABLET PO SCH ×2 (08:00)
[2018-04-01] MEDS ORDERED: CARVEDILOL 25 MG TABLET PO SCH ×2 (08:00)
[2018-04-01] MEDS: SPIRONOLACTONE 25 MG TABLET PO SCH (08:31)
[2018-04-01] MEDS: AMLODIPINE 10 MG TABLET PO SCH (08:32)
[2018-04-01] MEDS: ESCITALOPRAM OXALATE 10 MG TABLET PO SCH (08:32)
[2018-04-01] MEDS: PRAZOSIN HCL 1 MG CAPSULE PO SCH (08:32)
[2018-04-01] MEDS: LISINOPRIL 20 MG TABLET PO SCH (08:32)
[2018-04-01] MEDS: FERROUS SULFATE 325 MG TABEC PO SCH (08:33)
[2018-04-01] MEDS: FOLIC ACID 1 MG TABLET PO SCH (08:33)
[2018-04-01] MEDS: NICOTINE 21 MG/24HR PATCH TD SCH (08:33)
--- NOTE | 2018-04-01 10:03 | NUR ---
PATIENT REPORTED FEELING DIZZY WHEN AMBULATING, VITALS CHECKED BLOOD PRESSURE.90/27 , PATIENT ASSISTED TO LIE BACK DOWN, RECHECKED BLOOD PRESSURE 102/35. Addendum: 04/01/18 at 1006 by LARISSA DURBIN RN HEART RATE 61.
--- NOTE | 2018-04-01 10:15 | NUR ---
blood pressure rechecked 117/45, hr 62
[2018-04-01] MEDS ORDERED: IV NORMAL SALINE 250 ML BAG IV ONE (11:00)
[2018-04-01] MEDS: INSULIN REGULAR, HUMAN 300 UNIT/3 ML VIAL SQ PRN (12:19)
--- NOTE | 2018-04-01 13:45 | NUR ---
IV access removed ID band removed
--- NOTE | 2018-04-01 13:55 | NUR ---
DISCHARGE NOTE patient vitals stable. orthostatics taken, patient instructed on discharge and follow up care with PCP and director of medical staff services within one week, patient daughter in law Kayce at bedside, verbalized they will make follow up appt, refuse to have appt made, verbalized understanding, patient questions and concerns addressed, belongings returned and accounted for. patient discharged with family.
[2018-04-04 11:06] LABS: RENIN 0.305 ng/mL/hr (0.167-5.380)
[2018-04-06 06:06] LABS: ALDOSTERONE 3.2 ng/dL (0.0-30.0)
== END 2018-04-01 13:54 | disposition home or self-care (01) | DRG 305 ==
LOC: ER 21:41 → TELE 03-30 01:23 → MED 03-31 18:30
PROVIDERS: ADMIT Nurse Practitioner Acute Care; ATTEND Nurse Practitioner Acute Care
DX: I16.0 Hypertensive urgency (principal); E87.1 Hypo-osmolality and hyponatremia; E87.8 Other disorders of electrolyte and fluid balance, not elsewhere classified; Z95.0 Presence of cardiac pacemaker; E11.9 Type 2 diabetes mellitus without complications; Z95.2 Presence of prosthetic heart valve; I48.2 Chronic atrial fibrillation; I34.0 Nonrheumatic mitral (valve) insufficiency; Z79.01 Long term (current) use of anticoagulants; Z79.84 Long term (current) use of oral hypoglycemic drugs; E83.42 Hypomagnesemia; E87.6 Hypokalemia; I95.1 Orthostatic hypotension; I70.0 Atherosclerosis of aorta; Z82.49 Family history of ischemic heart disease and other diseases of the circulatory system; F41.9 Anxiety disorder, unspecified; E86.9 Volume depletion, unspecified
CPT/HCPCS: 36415; 70030-TC; 70450; 71045; 82088; 82533; 83735; 84100; 84244; 84300; 84443; 84550; 85025; 85610; 85730; 93005; A4663; A9150; C9113; G0378; J0360; J1815; J2270; J2405; J3475; J7030; J7050; J7060

== ENCOUNTER 2019-03-06 00:04 | Inpatient (IN) | payer MEDICARE, OTHER ==
[~2019-03-06] VITALS: Ht 160 cm; Wt 59.9 kg
[~2019-03-06 00:04] MED LIST changes: -ATOR10TA PO; -D-ME118S12 PO; +ESCI5TAB PO; +FERR325T24 PO; +FOLI1TAB16 PO; -LEVO500T2 PO; -PREG50CA PO
--- NOTE | 2019-03-06 00:15 | NUR ---
Dr. Low at bedside for MSE.
[2019-03-06] MEDS ORDERED: methylPREDNISolone SOD SUCC 125 MG/2 ML VIAL ONE (00:38)
--- NOTE | 2019-03-06 00:41 | NUR ---
Respiratory at bedside.
[2019-03-06] MEDS ORDERED: ALBUTEROL SULFATE 2.5 MG/3 ML NEBU ONE (00:42)
--- NOTE | 2019-03-06 00:43 | NUR ---
Xray at bedside.
[2019-03-06] MEDS ORDERED: ALBUTEROL SULFATE 2.5 MG/ 0.5 ML NEBU NEB ONE (00:45)
[2019-03-06] MEDS ORDERED: IV NORMAL SALINE 500 ML BAG IV ONE (00:45)
[2019-03-06] MEDS ORDERED: methylPREDNISolone SOD SUCC 125 MG/2 ML VIAL IV ONE (00:45)
[2019-03-06 00:47] LABS: BASOPHILS # (AUTO) 0.1 K/uL (0.0-8.0); EOSINOPHILS # (AUTO) 0.4 K/uL (0.0-0.7); EOSINOPHILS % (AUTO) 6.2 % (0.0-7.0); HEMATOCRIT 26.1 % (31.2-41.9); HEMOGLOBIN 8.4 g/dL (10.9-14.3); LYMPHOCYTES # (AUTO) 1.2 K/uL (20.0-40.0); LYMPHOCYTES % (AUTO) 17.1 % (20.5-51.5); MEAN CORPUSCULAR HGB CONC 32 g/dL (32.3-35.6); MEAN CORPUSCULAR VOLUME 71.5 fL (75.5-95.3); MONOCYTES # (AUTO) 0.7 K/uL (2.0-10.0); MONOCYTES % (AUTO) 10.2 % (0.0-11.0); NEUTROPHILS # (AUTO) 4.6 K/uL (1.8-8.9); NEUTROPHILS % (AUTO) 65.5 % (38.5-71.5); PLATELET COUNT (AUTO) 188 K/uL (179-408); RED BLOOD CELL COUNT(AUTO) 3.66 MIL/uL (3.63-4.92)
[2019-03-06] MEDS ORDERED: ASCO500C18 PO (00:48)
[2019-03-06] MEDS ORDERED: UMEC1BLS IH (00:48)
[2019-03-06] MEDS ORDERED: HYOS0.1275 SL (00:48)
[2019-03-06] MEDS ORDERED: ATOR20TA PO (00:48)
[2019-03-06] MEDS ORDERED: DICY20TA11 PO (00:48)
[2019-03-06] MEDS ORDERED: LISI-603 PO (00:48)
[2019-03-06] MEDS ORDERED: SIME125C81 PO (00:48)
[2019-03-06] MEDS ORDERED: IPRA0.2S6 NEB (00:48)
[2019-03-06] MEDS ORDERED: FURO-152 PO (00:48)
[2019-03-06] MEDS ORDERED: LORA0.5T PO (00:48)
[2019-03-06] MEDS ORDERED: ISOS30TA PO (00:48)
[2019-03-06] MEDS ORDERED: FLUT100B3 IH (00:48)
[2019-03-06] MEDS ORDERED: LINA145C PO (00:48)
[2019-03-06] MEDS ORDERED: ERGO500014 PO (00:48)
[2019-03-06] MEDS ORDERED: MAGN250T10 PO (00:48)
[2019-03-06] MEDS ORDERED: METO5TAB87 PO (00:48)
[2019-03-06 00:53] LABS: CREATININE 0.7 mg/dL (0.6-1.3); POTASSIUM 4.2 mmol/L (3.5-5.1)
[2019-03-06 00:54] LABS: ABG BASE EXCESS -1.9 mmol/L; ABG HCO3 23.2 mmol/L; ABG PCO2 40.5 mmHg (35.0-45.0); ABG PH 7.375 (7.350-7.450); ABG PO2 61.1 mmHg (75.0-100.0); ABG SITE LEFT RADIAL; COHb 1.7 % (0.5-1.5); MetHb 0.4 % (0.0-1.5); O2Hb 86.4 % (94.0-97.0); VENT MODE Nasal Cannula
[2019-03-06 01:05] LABS: BILIRUBIN,DIRECT 0.2 mg/dL (0.0-0.2); BILIRUBIN,TOTAL 0.5 mg/dL (0.2-1.0); TOTAL PROTEIN, SERUM 7.6 g/dL (6.4-8.2)
[2019-03-06] MEDS ORDERED: FUROSEMIDE 40 MG/4 ML VIAL ONE (01:43)
[2019-03-06] MEDS ORDERED: FUROSEMIDE 40 MG/4 ML VIAL IV ONE (01:45)
--- NOTE | 2019-03-06 01:45 | NUR ---
Pt states still have trouble breathing. notified.
--- NOTE | 2019-03-06 01:55 | NUR ---
Respiratory at bedside.
--- NOTE | 2019-03-06 02:31 | NUR ---
Called [facility] to page Dr. Wyatt.
--- NOTE | 2019-03-06 02:44 | NUR ---
Dr. Low on panel call with Dr. Wyatt. Patient accepted for admission to [facility], diagnosis: COPD exacerbation, Afib, and CHF.
[2019-03-06] MEDS ORDERED: ACETAMINOPHEN 325 MG TABLET PO PRN (02:45)
[2019-03-06] MEDS ORDERED: Z GUARD REMEDY PASTE 57 GM TUBE TOP PRN (02:45)
[2019-03-06] MEDS ORDERED: ONDANSETRON 4 MG/2 ML VIAL IV PRN (02:45)
[2019-03-06] MEDS ORDERED: MAGNESIUM HYDROXIDE 30 ML LIQUID UDC PO PRN (02:45)
--- NOTE | 2019-03-06 03:07 | NUR ---
Report given to Alaina PIKE Tele.
[2019-03-06] MEDS ORDERED: LORAZEPAM 1 MG TABLET PO PRN (03:15)
[2019-03-06] MEDS ORDERED: METOCLOPRAMIDE HCL 5 MG TABLET PO PRN ×2 (03:15→07:30)
--- NOTE | 2019-03-06 05:16 | NUR ---
patient received from ER. ID band on. Tele monitor on and v pacing with underlying a-fib. belonging list completed. admissions process complete. no signs of acute distress and v/s stable throughout shift. safety and comfort measures provided at all times. BP at 169/[address] Martel called for high BP. no new orders at this time. will continue to monitor and endorse care accordingly to morning nurse.
[2019-03-06] MEDS ORDERED: IPRATROPIUM BROMIDE 0.5 MG/2.5 ML NEBU NEB SCH ×2 (06:00→13:30)
[2019-03-06 06:29] VITALS: BP 169/50
[2019-03-06] MEDS: ALBUTEROL SULFATE 2.5 MG/3 ML NEBU NEB PRN (06:36)
[2019-03-06] MEDS: PANTOPRAZOLE SODIUM 40 MG TABLET.DR PO SCH (06:37)
--- NOTE | 2019-03-06 06:53 | NUR ---
patient took out her Bipap mask. o2 sat at 91. patient is stable. will endorse to morning nurse to place back on if needed.
--- NOTE | 2019-03-06 07:30 | NUR ---
PATIENT IS AWAKE ALERT AND ORIENTED WAS BEING SEEN BY THE RESPIRATORY THERAPIST WHO PLACED HER ON THE NASAL CANULA WAS ON BIPAP AND HER SATS WERE OKAY AT THIS TIME WILL CONTINUE TO OBSERVE FOR RESPIRATORY DISTRESS.
[2019-03-06] MEDS ORDERED: WARFARIN SODIUM 1 MG PO SCH (09:00)
[2019-03-06] MEDS: FUROSEMIDE 40 MG/4 ML VIAL IV SCH ×2 (09:14→21:50)
[2019-03-06] MEDS: methylPREDNISolone SOD SUCC 40 MG/ML VIAL IV SCH ×3 (09:14→21:51)
[2019-03-06] MEDS: FOLIC ACID 1 MG TABLET PO SCH (09:14)
[2019-03-06] MEDS: LISINOPRIL 20 MG TABLET PO SCH ×2 (09:15→16:54)
[2019-03-06] MEDS: ISOSORBIDE MONONITRATE 30 MG TAB.SR.24H PO SCH (09:15)
[2019-03-06] MEDS: CARVEDILOL 12.5 MG TABLET PO SCH ×2 (09:16→17:20)
[2019-03-06] MEDS: AMLODIPINE 10 MG TABLET PO SCH (09:16)
[2019-03-06] MEDS: METFORMIN HCL 500 MG TABLET PO SCH ×2 (09:21→17:19)
[2019-03-06] MEDS: IPRATROPIUM BROMIDE 0.5 MG/2.5 ML NEBU NEB SCH ×4 (11:54→23:35)
[2019-03-06] MEDS: ACETYLCYSTEINE 10% 4ML VIAL NEB SCH ×2 (11:54→20:34)
[2019-03-06] MEDS: ALBUTEROL SULFATE 1.25 MG/3 ML NEBU NEB SCH ×4 (11:54→23:35)
[2019-03-06 11:55] VITALS: BP 139/92
[2019-03-06] MEDS ORDERED: AZITHROMYCIN IV 500 MG in IV DEXTROSE 5% 250 ML IV SCH (12:00)
[2019-03-06] MEDS: LEVOFLOXACIN 500 MG/D5W 500 MG in PREMIXED 1 EACH IV SCH (12:21)
[2019-03-06] MEDS: FERROUS SULFATE 325 MG TABEC PO SCH (12:23)
[2019-03-06] MEDS: DOCUSATE SODIUM 100 MG CAPSULE PO SCH ×2 (12:23→21:50)
[2019-03-06] MEDS ORDERED: ALBUTEROL SULFATE 2.5 MG/ 0.5 ML NEBU NEB SCH (13:30)
--- NOTE | 2019-03-06 14:47 | NUR ---
ASSISTED PATIENT INTO THE BATHROOM VOIDED WITH NO SHORTNESS OF BREATH REMAIN ON O2 AT 2L/M BY NASAL CANULA REMAIN ON ATB WITH NO ADVERSE OR ALLERGIC REACTIONS AT THIS TIME MADE COMFORTABLE AND WILL CONTINUE TO OBSERVE.
[2019-03-06] MEDS ORDERED: MONT10TA25 PO (15:28)
[2019-03-06 16:15] VITALS: BP 143/48
[2019-03-06] MEDS: WARFARIN SODIUM 1 MG TABLET PO SCH (16:56)
[2019-03-06] MEDS ORDERED: WARFARIN SODIUM 1 MG TABLET PO SCH (17:00)
--- NOTE | 2019-03-06 19:45 | NUR ---
PATIENT ALERT ORIENTED, NO SOB NO CHEST PAIN, PATIENT ON 2LPM OXYGEN FOR ASSIST. PATIENT CONTINENT OF BOWEL AND BLADDER, ASSISTED WITH TOILETING. PATIENT ON HHN TX FOR CHF, DYSPNEA ON EXERTION, AND COUGH. PATIENT OXYGEN SAT WNL, CONT TO MONITOR.
[2019-03-06 20:27] VITALS: BP 126/103
[2019-03-06] MEDS: ATORVASTATIN 20 MG TABLET PO SCH (21:50)
[2019-03-06] MEDS: MONTELUKAST SODIUM 10 MG TABLET PO SCH (21:51)
[2019-03-06] MEDS: MIRTAZAPINE 15 MG TABLET PO SCH (21:51)
[2019-03-07 00:18] VITALS: BP 129/40
[2019-03-07] MEDS: ALBUTEROL SULFATE 1.25 MG/3 ML NEBU NEB SCH ×6 (03:47→23:30)
[2019-03-07] MEDS: IPRATROPIUM BROMIDE 0.5 MG/2.5 ML NEBU NEB SCH ×6 (03:47→23:30)
[2019-03-07 04:00] VITALS: BP 134/49
[2019-03-07] MEDS: methylPREDNISolone SOD SUCC 40 MG/ML VIAL IV SCH ×3 (05:51→21:57)
[2019-03-07 06:17] LABS: BASOPHILS % (AUTO) 0.1 % (0.0-2.0); HEMATOCRIT 23.8 % (31.2-41.9); HEMOGLOBIN 7.7 g/dL (10.9-14.3); LYMPHOCYTES # (AUTO) 0.5 K/uL (20.0-40.0); LYMPHOCYTES % (AUTO) 8.4 % (20.5-51.5); MEAN CORPUSCULAR HEMOGLOBIN 22.8 uug (24.7-32.8); MEAN CORPUSCULAR HGB CONC 33 g/dL (32.3-35.6); MEAN CORPUSCULAR VOLUME 70.1 fL (75.5-95.3); MONOCYTES # (AUTO) 0.4 K/uL (2.0-10.0); MONOCYTES % (AUTO) 6.4 % (0.0-11.0); NEUTROPHILS # (AUTO) 4.8 K/uL (1.8-8.9); NEUTROPHILS % (AUTO) 85.1 % (38.5-71.5); PLATELET COUNT (AUTO) 174 K/uL (179-408); WHITE BLOOD COUNT (AUTO) 5.7 K/uL (3.8-11.8)
--- NOTE | 2019-03-07 06:30 | NUR ---
PATIENT NOT WEARING OXYGEN ABG DRAWN ON ROOM AIR, ABG IS GOOD AND PATIENT DOESN'T REQUIRE OXYGEN.
[2019-03-07] MEDS: PANTOPRAZOLE SODIUM 40 MG TABLET.DR PO SCH (06:34)
[2019-03-07 06:55] LABS: BILIRUBIN,TOTAL 0.4 mg/dL (0.2-1.0); CREATININE 0.9 mg/dL (0.6-1.3); MAGNESIUM 1.5 mg/dL (1.8-2.4); PHOSPHOROUS 4.3 mg/dL (2.5-4.9); POTASSIUM 3.4 mmol/L (3.5-5.1)
--- NOTE | 2019-03-07 06:56 | NUR ---
PATIENT ALERT ORIENTED, TELE MONITOR. A FIB V PACING 70 TO 80 CONTROLLED. NO SOB NO CHEST PAIN, VOIDING WELL, TOLERATE ROOM AIR, SATURATING WELL, CONT TO MONITOR.
[2019-03-07] MEDS: ACETYLCYSTEINE 10% 4ML VIAL NEB SCH ×3 (08:15→22:28)
[2019-03-07] MEDS: DOCUSATE SODIUM 100 MG CAPSULE PO SCH ×2 (09:03→20:40)
[2019-03-07] MEDS: METFORMIN HCL 500 MG TABLET PO SCH ×2 (09:03→17:29)
[2019-03-07] MEDS: FERROUS SULFATE 325 MG TABEC PO SCH (09:03)
[2019-03-07] MEDS: FUROSEMIDE 40 MG/4 ML VIAL IV SCH ×2 (09:04→20:40)
[2019-03-07] MEDS: AMLODIPINE 10 MG TABLET PO SCH (09:04)
[2019-03-07] MEDS: LISINOPRIL 20 MG TABLET PO SCH ×2 (09:04→17:29)
[2019-03-07] MEDS: FOLIC ACID 1 MG TABLET PO SCH (09:04)
[2019-03-07] MEDS: ISOSORBIDE MONONITRATE 30 MG TAB.SR.24H PO SCH (09:05)
[2019-03-07] MEDS: CARVEDILOL 12.5 MG TABLET PO SCH ×2 (09:05→17:30)
[2019-03-07] MEDS ORDERED: MAGNESIUM OXIDE 400 MG TABLET PO ONE (10:15)
[2019-03-07] MEDS ORDERED: POTASSIUM CHLORIDE 20 MEQ TAB.PRT.SR PO ONE (10:15)
--- NOTE | 2019-03-07 10:30 | NUR ---
POTASSIUM LEVEL IS 3.4 AND MAG IS 1.5 PATIENT SEEN BY PATIENCE GONSALEZ WITH NEW ORDERS AND NOTED.
[2019-03-07 11:12] VITALS: BP 108/42
[2019-03-07 11:26] LABS: LYMPHOCYTES % (MANUAL) 20 % (20-40); MONOCYTES % (MANUAL) 3 % (2-10); NEUTROPHILS % (MANUAL) 77 % (42-75)
--- NOTE | 2019-03-07 12:00 | NUR ---
PATIENT STATED THAT SHE WAS HAVING SOME DIFFICULTY SEEING BUT STATED THAT HER EYES ARE TIRED BECAUSE SHE DID NOT SLEEP WELL LAST PARAG SO I TOLD PATIENCE GONSALEZ AND SHE WENT TO THE ROOM SEEN PATIENT WITH NO NEW ORDERS WILL CONTINUE TO OBSERVE PATIENT.
[2019-03-07] MEDS: LEVOFLOXACIN 500 MG/D5W 500 MG in PREMIXED 1 EACH IV SCH (12:12)
--- NOTE | 2019-03-07 12:41 | NUR ---
DR NOLASCO HERE TO SEE PATIENT AND RECOMMENDED PSYCH EVAL DR MOYA IS FOOD SERVICE TECHNICIAN SO [facility] WAS NOTIFIED TO HAVE DR MOYA TO SEE PATIENT TODAY.PATIENTS SON AND DAUGHTER HERE AND SPOKE WITH DR NOLASCO AT LENGTH RE PLAN OF CARE. Addendum: 03/07/19 at 1257 by RAMAKRISHNA RAMACHANDRAN RN ERROR WRONG PATIENT.
[2019-03-07 15:49] VITALS: BP 113/41
--- NOTE | 2019-03-07 16:11 | NUR ---
ASSISTED PATIENT WITH AMBULATING IN THE HALLWAY WITH CONTACT GUARD ASSIST PATIENT TOLERATED WELL O2 SAT ON ROOM AIR IS 95 PERCENT PATIENT LEFT ON ROOM AIR DENIES SHORTNESS OF BREATH RESTING IN HER BED AT THIS [facility].
[2019-03-07] MEDS: WARFARIN SODIUM 1 MG TABLET PO SCH (17:02)
[2019-03-07] MEDS ORDERED: LORAZEPAM 0.5 MG TABLET PO SCH (18:00)
[2019-03-07 20:37] VITALS: BP 120/47
[2019-03-07] MEDS: ATORVASTATIN 20 MG TABLET PO SCH (20:41)
[2019-03-07] MEDS: MONTELUKAST SODIUM 10 MG TABLET PO SCH (20:41)
[2019-03-07] MEDS: MIRTAZAPINE 15 MG TABLET PO SCH (20:41)
[2019-03-08] MEDS: ALBUTEROL SULFATE 1.25 MG/3 ML NEBU NEB SCH ×3 (03:30→11:23)
[2019-03-08] MEDS: IPRATROPIUM BROMIDE 0.5 MG/2.5 ML NEBU NEB SCH ×4 (03:30→16:03)
[2019-03-08 05:18] VITALS: BP 121/46
[2019-03-08] MEDS: methylPREDNISolone SOD SUCC 40 MG/ML VIAL IV SCH ×2 (06:26→13:27)
[2019-03-08] MEDS: PANTOPRAZOLE SODIUM 40 MG TABLET.DR PO SCH (06:27)
[2019-03-08 06:34] LABS: BASOPHILS % (AUTO) 0.3 % (0.0-2.0); EOSINOPHILS % (AUTO) 0.5 % (0.0-7.0); LYMPHOCYTES # (AUTO) 0.5 K/uL (20.0-40.0); MONOCYTES # (AUTO) 0.4 K/uL (2.0-10.0); NEUTROPHILS # (AUTO) 6.4 K/uL (1.8-8.9)
[2019-03-08 06:37] LABS: MAGNESIUM 1.6 mg/dL (1.8-2.4); PHOSPHOROUS 4.4 mg/dL (2.5-4.9); POTASSIUM 3.5 mmol/L (3.5-5.1)
[2019-03-08 06:44] LABS: HEMATOCRIT 25.7 % (31.2-41.9); HEMOGLOBIN 8.3 g/dL (10.9-14.3); LYMPHOCYTES % (AUTO) 6.6 % (20.5-51.5); MEAN CORPUSCULAR HEMOGLOBIN 23.4 uug (24.7-32.8); MEAN CORPUSCULAR HGB CONC 32 g/dL (32.3-35.6); MEAN CORPUSCULAR VOLUME 72.6 fL (75.5-95.3); MONOCYTES % (AUTO) 5.8 % (0.0-11.0); NEUTROPHILS % (AUTO) 86.8 % (38.5-71.5); PLATELET COUNT (AUTO) 176 K/uL (179-408); RED BLOOD CELL COUNT(AUTO) 3.54 MIL/uL (3.63-4.92)
[2019-03-08 06:45] LABS: WHITE BLOOD COUNT (AUTO) 7.3 K/uL (3.8-11.8)
--- NOTE | 2019-03-08 07:25 | NUR ---
RECEIVED ASLEEP IN HER BED SHE IS CURRENTLY ON ROOM AIR WITH NO S/S OF SOB NO S/S OF PAIN OR DISCOMFORTS CALL LIGHTS AND PERSONAL BELONGINGS ARE WITHIN EASY REACH AT THIS TIME WILL CONTINUE TO OBSERVE.
[2019-03-08] MEDS: ACETYLCYSTEINE 10% 4ML VIAL NEB SCH ×2 (08:00→15:30)
[2019-03-08] MEDS: FUROSEMIDE 40 MG/4 ML VIAL IV SCH (09:05)
[2019-03-08] MEDS: METFORMIN HCL 500 MG TABLET PO SCH (09:07)
[2019-03-08] MEDS: DOCUSATE SODIUM 100 MG CAPSULE PO SCH (09:07)
[2019-03-08] MEDS: FOLIC ACID 1 MG TABLET PO SCH (09:07)
[2019-03-08] MEDS: FERROUS SULFATE 325 MG TABEC PO SCH (09:07)
[2019-03-08] MEDS: LISINOPRIL 20 MG TABLET PO SCH (09:10)
[2019-03-08] MEDS: ISOSORBIDE MONONITRATE 30 MG TAB.SR.24H PO SCH (09:11)
[2019-03-08] MEDS: CARVEDILOL 12.5 MG TABLET PO SCH (09:11)
[2019-03-08] MEDS: AMLODIPINE 10 MG TABLET PO SCH (09:11)
[2019-03-08 09:20] LABS: BAND % (MANUAL) 1 % (0-10); LYMPHOCYTES % (MANUAL) 11 % (20-40); MONOCYTES % (MANUAL) 3 % (2-10); NEUTROPHILS % (MANUAL) 85 % (42-75)
--- NOTE | 2019-03-08 11:00 | NUR ---
MAGNESSIUM LEVEL IS 1.6 WITH REPLACEMENT ORDER AND NOTED.
[2019-03-08] MEDS ORDERED: MAGNESIUM OXIDE 400 MG TABLET PO ONE (11:30)
[2019-03-08 11:31] VITALS: BP 120/32
[2019-03-08] MEDS ORDERED: LEVO500T2 PO (12:00)
[2019-03-08] MEDS ORDERED: METH4TAB3 PO (12:00)
--- NOTE | 2019-03-08 12:00 | NUR ---
PATIENT SEEN AND EXAMINED BY PATIENCE GONSALEZ WITH ORDER TO DISCHARGE PATIENT HOME TODAY BUT SHE STATED TO GO AHEAD AND GIVE HER THE DUE ANTIBIOTICS AND SOLU MEDROL FIRST BEFORE DISCHARGE PATIENT AWARE AND STATED WILL WAIT TO GET THE IV OF THESE MEDICATIONS BEFORE DISCHARGE
[2019-03-08] MEDS: LEVOFLOXACIN 500 MG/D5W 500 MG in PREMIXED 1 EACH IV SCH (12:09)
--- NOTE | 2019-03-08 14:31 | NUR ---
PATIENT DISCHARGED PICKED UP BY HER SOFIA IN SATISFACTORY CONDITION WITH DISCHARGE INSTRUCTIONS AND PATIENT INSTRUCTED THAT HER MEDICATIONS WAS SENT ELECTRONICALLY TO HER PHARMACY OF CHOICE AND ALSO TO FOLLOW UP WITH HER PRIMARY DOCTOR WITHIN ONE WEEK AND ALSO CONTINUE WITH MEDICATIONS INSTRUCTED AND SHE EXPRESSED UNDERSTANDING.
[2019-03-08] MEDS: ALBUTEROL SULFATE 2.5 MG/3 ML NEBU NEB PRN (16:03)
[2019-03-09] MEDS ORDERED: FUROSEMIDE 20 MG TABLET PO SCH (09:00)
[2019-03-24] MEDS ORDERED: WARF4TAB41 PO (22:55)
== END 2019-03-08 14:31 | disposition home or self-care (01) | DRG 291 ==
LOC: ER 00:09 → TELE3 03:38 → MEDSURG3 03-08 12:10
PROVIDERS: ADMIT Internal Medicine; ATTEND Nurse Practitioner Acute Care
PROC: 5A09357 Assistance with Respiratory Ventilation, Less than 24 Consecutive Hours, Continuous Positive Airway Pressure (ICD-10-PCS; principal; 2019-03-06)
DX: I11.0 Hypertensive heart disease with heart failure (principal); J96.01 Acute respiratory failure with hypoxia; J44.1 Chronic obstructive pulmonary disease with (acute) exacerbation; E87.1 Hypo-osmolality and hyponatremia; I48.20 Chronic atrial fibrillation, unspecified; J44.0 Chronic obstructive pulmonary disease with (acute) lower respiratory infection; I50.33 Acute on chronic diastolic (congestive) heart failure; J20.9 Acute bronchitis, unspecified; F17.200 Nicotine dependence, unspecified, uncomplicated; E11.9 Type 2 diabetes mellitus without complications; Z79.01 Long term (current) use of anticoagulants; Z95.0 Presence of cardiac pacemaker; E83.42 Hypomagnesemia; E87.6 Hypokalemia; Z95.2 Presence of prosthetic heart valve; F17.210 Nicotine dependence, cigarettes, uncomplicated; D50.9 Iron deficiency anemia, unspecified; Z79.84 Long term (current) use of oral hypoglycemic drugs; Z79.899 Other long term (current) drug therapy
CPT/HCPCS: 36415; 36600; 70030-TC; 71045; 83735; 84100; 85025; 85610; 87040; 87400; 93005; 93307; 94640; 94660; A4663; G0378; J0456; J1940; J1956; J2920; J2930; J3590; J7040; J7050; J7060

== ENCOUNTER 2019-03-24 21:59 | Inpatient (IN) | payer MEDICARE, OTHER ==
[~2019-03-24] VITALS: Ht 162.6 cm; Wt 61.2 kg
[2019-03-24] MEDS ORDERED: methylPREDNISolone SOD SUCC 125 MG/2 ML VIAL IV ONE (22:15)
[2019-03-24] MEDS ORDERED: IPRATROPIUM BROMIDE 0.5 MG/2.5 ML NEBU NEB ONE (22:15)
[2019-03-24] MEDS ORDERED: ALBUTEROL SULFATE 2.5 MG/3 ML NEBU NEB ONE (22:15)
--- NOTE | 2019-03-24 22:15 | NUR ---
Dr. Figueroa at bedside for MSE.
--- NOTE | 2019-03-24 22:16 | NUR ---
Respiratory at bedside.
[2019-03-24 22:28] LABS: BASOPHILS % (AUTO) 0.4 % (0.0-2.0); EOSINOPHILS # (AUTO) 0.3 K/uL (0.0-0.7); EOSINOPHILS % (AUTO) 4.2 % (0.0-7.0); HEMATOCRIT 24.6 % (31.2-41.9); HEMOGLOBIN 7.8 g/dL (10.9-14.3); LYMPHOCYTES # (AUTO) 1.3 K/uL (20.0-40.0); LYMPHOCYTES % (AUTO) 21.2 % (20.5-51.5); MEAN CORPUSCULAR HEMOGLOBIN 22.7 uug (24.7-32.8); MEAN CORPUSCULAR HGB CONC 32 g/dL (32.3-35.6); MEAN CORPUSCULAR VOLUME 71.4 fL (75.5-95.3); MONOCYTES # (AUTO) 0.7 K/uL (2.0-10.0); MONOCYTES % (AUTO) 11.2 % (0.0-11.0); NEUTROPHILS # (AUTO) 3.8 K/uL (1.8-8.9); PLATELET COUNT (AUTO) 134 K/uL (179-408); RED BLOOD CELL COUNT(AUTO) 3.45 MIL/uL (3.63-4.92)
[2019-03-24 22:29] LABS: CREATININE 0.7 mg/dL (0.6-1.3); POTASSIUM 4.3 mmol/L (3.5-5.1)
[2019-03-24] MEDS ORDERED: ALBUTEROL SULFATE 2.5 MG/3 ML NEBU ONE (22:29)
[2019-03-24] MEDS ORDERED: IPRATROPIUM BROMIDE 0.5 MG/2.5 ML NEBU ONE (22:30)
[2019-03-24] MEDS ORDERED: methylPREDNISolone SOD SUCC 125 MG/2 ML VIAL ONE (22:31)
[2019-03-24 22:42] LABS: BILIRUBIN,DIRECT 0.2 mg/dL (0.0-0.2); BILIRUBIN,TOTAL 0.5 mg/dL (0.2-1.0); TOTAL PROTEIN, SERUM 7.2 g/dL (6.4-8.2)
--- NOTE | 2019-03-24 22:54 | NUR ---
PT PLACED ON BI/PAP INTIAL SETTINGS, 20/ 5, RR16 100% , PT CANT NOT TOLERATE BI/PAP , LOWERED SETTINGS, TILL, 02/04, STILL CANT NOT WEAR MASK, WITH MORE ANXIETY AND PT IS AWAKE AND TALKING, PT WORE BIPAP X 15 MINS, PT THEN GIVEN NEB X 1 HOUR, CONT, WITH 10MG ALBUTEROL/ 1.5MG ATROVENT, DOING BETTER , SAT 100%, NURSE INFORMED, DOCTOR WITH ANOTHER PT. Elizabeth VASQUEZ PRESSROOM FOREMAN Addendum: 03/24/19 at 2257 by OBED VASQUEZ RT Amended: Links added.
[2019-03-24] MEDS ORDERED: ASPIRIN EC 81 MG TABLET.DR PO ONE (23:14)
[2019-03-24] MEDS ORDERED: ASPIRIN 81 MG TAB.CHEW PO ONE (23:15)
[2019-03-24 23:32] LABS: EOSINOPHILS % (MANUAL) 2 % (0-8); LYMPHOCYTES % (MANUAL) 18 % (20-40); MONOCYTES % (MANUAL) 7 % (2-10); NEUTROPHILS % (MANUAL) 73 % (42-75)
--- NOTE | 2019-03-24 23:37 | NUR ---
Called [facility] to page Yosef Ocasio DNP.
[2019-03-25] VITALS (10 sets, daily range): BP systolic 116–162; BP diastolic 38–65
--- NOTE | 2019-03-25 00:04 | NUR ---
Dr. Figueroa on panel call with Dr. Tyrone Jacome. Patient accepted for admission to [facility], diagnosis: shortness of breath and chestpain.
[2019-03-25] MEDS ORDERED: DOXYCYCLINE HYCLATE 100 MG TABLET PO ONE (00:15)
--- NOTE | 2019-03-25 00:26 | NUR ---
Report given to Elva PIKE Tele.
[2019-03-25] MEDS ORDERED: LORAZEPAM 0.5 MG TABLET PO PRN (00:30)
[2019-03-25] MEDS ORDERED: DICYCLOMINE HCL 20 MG TABLET PO PRN (00:30)
--- NOTE | 2019-03-25 01:00 | NUR ---
Received patient from ER via gurney. Oriented patient safely to her room. A/O x 4. Denies pain at the moment. Placed on O2 2L NC, sating at 93-94 %. care home assessment done, no skin issues. TELE vpacing with underlying Afib with some PVC at 66. IV on the right FA, patent and intact. Safety initiated. Call light within reach. Will continue to monitor.
[2019-03-25] MEDS ORDERED: ONDANSETRON 4 MG/2 ML VIAL IV PRN (01:30)
[2019-03-25] MEDS ORDERED: BUMETANIDE INJ 4 MG in IV DEXTROSE 5% 24 ML IV ONE (01:30)
[2019-03-25] MEDS ORDERED: ACETAMINOPHEN 325 MG TABLET PO PRN (01:30)
[2019-03-25] MEDS ORDERED: Z GUARD REMEDY PASTE 57 GM TUBE TOP PRN (01:30)
[2019-03-25] MEDS ORDERED: ALBUTEROL SULFATE 2.5 MG/3 ML NEBU NEB PRN (01:30)
[2019-03-25] MEDS ORDERED: DEXTROSE 50% 50 ML DISP.SYRIN IV PRN (01:30)
[2019-03-25] MEDS ORDERED: BUMETANIDE 1 MG/4 ML VIAL ONE (02:31)
[2019-03-25] MEDS: methylPREDNISolone SOD SUCC 40 MG/ML VIAL IV SCH ×3 (05:24→22:15)
--- NOTE | 2019-03-25 05:42 | NUR ---
Patient slept t/o shift. No acute distress noted. Denies pain or SOB. On O2 2L NC. Vital signs stable. Bumex drip on the right FA, patent and intact. TELE vpacing with underlying Afib and PVC at 60. Safety and comfort measures maintained t/o shift. All meds given as ordered. All needs met.
[2019-03-25 06:24] LABS: BASOPHILS % (AUTO) 0.3 % (0.0-2.0); LYMPHOCYTES # (AUTO) 0.4 K/uL (20.0-40.0); MONOCYTES # (AUTO) 0.1 K/uL (2.0-10.0)
[2019-03-25 06:27] LABS: EOSINOPHILS % (AUTO) 0.4 % (0.0-7.0); HEMATOCRIT 22.9 % (31.2-41.9); LYMPHOCYTES % (AUTO) 9.9 % (20.5-51.5); MEAN CORPUSCULAR HGB CONC 32 g/dL (32.3-35.6); MONOCYTES % (AUTO) 3.1 % (0.0-11.0); NEUTROPHILS # (AUTO) 3.2 K/uL (1.8-8.9); NEUTROPHILS % (AUTO) 86.3 % (38.5-71.5); PLATELET COUNT (AUTO) 124 K/uL (179-408); RED BLOOD CELL COUNT(AUTO) 3.23 MIL/uL (3.63-4.92); WHITE BLOOD COUNT (AUTO) 3.7 K/uL (3.8-11.8)
[2019-03-25 06:36] LABS: HEMOGLOBIN 7.4 g/dL (10.9-14.3)
[2019-03-25 06:37] LABS: CREATININE 0.8 mg/dL (0.6-1.3); MAGNESIUM 2.2 mg/dL (1.8-2.4); PHOSPHOROUS 2.9 mg/dL (2.5-4.9); POTASSIUM 4.8 mmol/L (3.5-5.1)
[2019-03-25] MEDS: BLOOD SUGAR DIAGNOSTIC 1 EACH STRIP VI SCH ×4 (06:53→20:40)
--- NOTE | 2019-03-25 07:15 | NUR ---
Received patient in Bed, awake and verbally responsive. No signs of distress noted. No SOB. NO complain of Pain or discomfort, will give 8 units insulin for BS 216. will continue to monitor.
[2019-03-25] MEDS: METFORMIN HCL 500 MG TABLET PO SCH ×2 (08:05→17:28)
[2019-03-25] MEDS: INSULIN REGULAR, HUMAN 300 UNIT/3 ML VIAL SQ PRN ×3 (08:17→16:50)
[2019-03-25] MEDS: CARVEDILOL 12.5 MG TABLET PO SCH ×2 (08:55→17:28)
[2019-03-25] MEDS: FUROSEMIDE 20 MG TABLET PO SCH (08:55)
[2019-03-25] MEDS: AMLODIPINE 10 MG TABLET PO SCH (08:55)
[2019-03-25] MEDS: FOLIC ACID 1 MG TABLET PO SCH (08:55)
[2019-03-25] MEDS: ISOSORBIDE MONONITRATE 30 MG TAB.SR.24H PO SCH (08:55)
[2019-03-25] MEDS: LISINOPRIL 20 MG TABLET PO SCH ×2 (08:56→17:28)
[2019-03-25] MEDS ORDERED: WARFARIN SODIUM 4 MG TABLET PO SCH (09:00)
[2019-03-25] MEDS ORDERED: IPRATROPIUM BROMIDE 0.5 MG/2.5 ML NEBU NEB SCH (09:00)
[2019-03-25] MEDS ORDERED: LORAZEPAM 1 MG TABLET PO PRN (11:45)
--- NOTE | 2019-03-25 11:45 | NUR ---
Seen and examined by Dr. Vences with New Order of Blood transfusion 1PRBC, Patient signed the consent.
[2019-03-25] MEDS: PANTOPRAZOLE SODIUM 40 MG VIAL IV SCH ×2 (12:25→20:40)
[2019-03-25] MEDS: IPRATROPIUM BROMIDE 0.5 MG/2.5 ML NEBU NEB SCH ×2 (15:27→23:30)
--- NOTE | 2019-03-25 16:08 | NUR ---
Blood transfusion completed, No ASE noted. Afebrile, No signs of distress noted. No complain of Pain or discomfort.
[2019-03-25] MEDS: MIRTAZAPINE 15 MG TABLET PO SCH (17:28)
--- NOTE | 2019-03-25 18:16 | NUR ---
Patient in Bed, awake and verbally responsive. No signs of distress noted. No SOB. No complain of pain or discomfort. No signs of Hyper/Hypoglycemia. Last Blood sugar was 174, 4 units insulin given per sliding scale. Patient had 1PRBC, No ASE noted. Afebrile. No episode of Black tarry stool noted. All needs attended and met. kept clean and comfortable. Will endorse to Oncoming Nurse.
--- NOTE | 2019-03-25 19:00 | NUR ---
PATIENT ALERT ORIENTED, NO SOB NO CHEST PAIN, TELE MONITOR V PACING, AFIB WITH PVC. DR SIMENTAL WAS AWARE OF THE TELE READING. PATIENT NOTED HAS SOME ANXIETY, RESTLESS IN BED, WILL CHECK BLOOD SUGAR, AND BP STABLE, CALL LIGHT WITHIN REACH.
[2019-03-25] MEDS: ATORVASTATIN 20 MG TABLET PO SCH (20:40)
[2019-03-25] MEDS: MONTELUKAST SODIUM 10 MG TABLET PO SCH (20:40)
[2019-03-25] MEDS: INSULIN REGULAR, HUMAN 300 UNITS/3 ML VIAL SQ PRN (20:50)
--- NOTE | 2019-03-25 22:55 | NUR ---
PATIENT COMPLAIN OF INSOMNIA, AND NOTED WITH ANXIETY MANIFESTED RESTLESSNESS WHILE IN BED, GIVEN ATIVAN 1 MG PO ORDERED, PATIENT WAS PUT ON OXYGEN 2LITERS PER MINUTE. PATIENT WAS INSTRUCTED TO KEEP OXYGEN TONIGHT FOR ASSIST ON BREATHING, CALL LIGHT WITHIN REACH. CONT TO MONITOR.
[2019-03-26] VITALS: BP 140/60
[2019-03-26 04:00] VITALS: BP 132/58
[2019-03-26] MEDS: BLOOD SUGAR DIAGNOSTIC 1 EACH STRIP VI SCH ×4 (06:21→20:43)
[2019-03-26] MEDS: methylPREDNISolone SOD SUCC 40 MG/ML VIAL IV SCH ×3 (06:21→21:43)
--- NOTE | 2019-03-26 06:28 | NUR ---
PATIENT ALERT ORIENTED, NO SOB NO CHEST PAIN, TELE MONITOR V PACING, PATIENT HAS NO FURTHER EPISODE OF BLACK TARRY STOOLS, PATIENT SLEPT MOST OF THE NIGHT, PATIENT HAS NO S/S OF HYPO/HYPERGLYCEMIA. PATIENT ON 2LPM NC OXYGEN WHILE SLEEPING, NO COMPLAIN OF PAIN, NO SOB, CONT TO MONITOR
[2019-03-26 07:16] LABS: LYMPHOCYTES # (AUTO) 0.7 K/uL (20.0-40.0); MEAN CORPUSCULAR VOLUME 74.2 fL (75.5-95.3); RED BLOOD CELL COUNT(AUTO) 3.28 MIL/uL (3.63-4.92)
[2019-03-26 07:20] LABS: BILIRUBIN,TOTAL 0.4 mg/dL (0.2-1.0); CREATININE 0.8 mg/dL (0.6-1.3); MAGNESIUM 1.6 mg/dL (1.8-2.4); PHOSPHOROUS 3.7 mg/dL (2.5-4.9); TOTAL PROTEIN, SERUM 6.3 g/dL (6.4-8.2)
[2019-03-26 07:25] LABS: BASOPHILS % (AUTO) 0.1 % (0.0-2.0); HEMATOCRIT 24.4 % (31.2-41.9); LYMPHOCYTES % (AUTO) 9.9 % (20.5-51.5); MEAN CORPUSCULAR HEMOGLOBIN 24.4 uug (24.7-32.8); MEAN CORPUSCULAR HGB CONC 33 g/dL (32.3-35.6); MONOCYTES # (AUTO) 0.4 K/uL (2.0-10.0); MONOCYTES % (AUTO) 6.7 % (0.0-11.0); NEUTROPHILS # (AUTO) 5.5 K/uL (1.8-8.9); NEUTROPHILS % (AUTO) 83.3 % (38.5-71.5); PLATELET COUNT (AUTO) 134 K/uL (179-408)
[2019-03-26 07:26] LABS: WHITE BLOOD COUNT (AUTO) 6.7 K/uL (3.8-11.8)
--- NOTE | 2019-03-26 07:30 | NUR ---
Received patient in Bed, awake alert and verbally responsive. No signs of distress noted. No SOB. No complain of pain or discomfort. Patient had a black tarry formed Stool, will send to lab for Stool Occult. Will continue to monitor.
[2019-03-26] MEDS: LORAZEPAM 1 MG TABLET PO SCH (08:07)
[2019-03-26] MEDS: METFORMIN HCL 500 MG TABLET PO SCH ×2 (08:07→17:12)
[2019-03-26] MEDS: INSULIN REGULAR, HUMAN 300 UNIT/3 ML VIAL SQ PRN ×4 (08:10→20:44)
[2019-03-26 08:28] LABS: THYROID STIMULATING HORMONE 0.343 mIU/mL (0.358-3.740)
[2019-03-26] MEDS: CARVEDILOL 12.5 MG TABLET PO SCH ×2 (08:36→17:12)
[2019-03-26] MEDS: FUROSEMIDE 20 MG TABLET PO SCH (08:36)
[2019-03-26] MEDS: AMLODIPINE 10 MG TABLET PO SCH (08:36)
[2019-03-26] MEDS: ISOSORBIDE MONONITRATE 30 MG TAB.SR.24H PO SCH (08:37)
[2019-03-26] MEDS: PANTOPRAZOLE SODIUM 40 MG VIAL IV SCH ×2 (08:37→21:43)
[2019-03-26] MEDS: FOLIC ACID 1 MG TABLET PO SCH (08:37)
[2019-03-26] MEDS: LISINOPRIL 20 MG TABLET PO SCH ×2 (08:37→17:12)
[2019-03-26] MEDS: IPRATROPIUM BROMIDE 0.5 MG/2.5 ML NEBU NEB SCH ×3 (08:42→22:48)
[2019-03-26] MEDS: MAGNESIUM SULFATE/D5W 100 ML IV SCH ×2 (08:43→09:47)
[2019-03-26] MEDS ORDERED: FUROSEMIDE 40 MG/4 ML VIAL IV ONE (09:00)
[2019-03-26 09:48] LABS: BAND % (MANUAL) 3 % (0-10); LYMPHOCYTES % (MANUAL) 13 % (20-40); MONOCYTES % (MANUAL) 5 % (2-10); NEUTROPHILS % (MANUAL) 79 % (42-75)
[2019-03-26 10:08] LABS: *OCCULT BLOOD STOOL POSITIVE (NEGATIVE)
[2019-03-26 11:51] VITALS: BP 110/53
[2019-03-26 15:40] VITALS: BP 132/62
[2019-03-26] MEDS: MIRTAZAPINE 15 MG TABLET PO SCH (17:12)
--- NOTE | 2019-03-26 18:47 | NUR ---
Patient in Bed, awake and verbally responsive. No signs of distress noted. No SOB. No complain of Pain or discomfort. awaiting for GI consult Dr. Viveros d/t Positive stool occult. All needs attended and met. kept clean and comfortable. Will endorse to Oncoming Nurse.
[2019-03-26 20:04] VITALS: BP 135/53
[2019-03-26] MEDS: MONTELUKAST SODIUM 10 MG TABLET PO SCH (20:42)
[2019-03-26] MEDS: ATORVASTATIN 20 MG TABLET PO SCH (20:43)
[2019-03-27 04:55] VITALS: BP 143/73
[2019-03-27] MEDS: methylPREDNISolone SOD SUCC 40 MG/ML VIAL IV SCH ×3 (05:28→21:01)
[2019-03-27] MEDS ORDERED: PROPOFOL 200 MG/20 ML BOTTLE IV ONE (06:33)
[2019-03-27 06:37] LABS: HEMOGLOBIN 8.2 g/dL (10.9-14.3); LYMPHOCYTES # (AUTO) 0.5 K/uL (20.0-40.0); MEAN CORPUSCULAR HEMOGLOBIN 24.3 uug (24.7-32.8); MEAN CORPUSCULAR HGB CONC 33 g/dL (32.3-35.6); MEAN CORPUSCULAR VOLUME 74.3 fL (75.5-95.3); MONOCYTES # (AUTO) 0.2 K/uL (2.0-10.0); MONOCYTES % (AUTO) 3.3 % (0.0-11.0); NEUTROPHILS # (AUTO) 6.7 K/uL (1.8-8.9); NEUTROPHILS % (AUTO) 89.7 % (38.5-71.5); PLATELET COUNT (AUTO) 154 K/uL (179-408); RED BLOOD CELL COUNT(AUTO) 3.36 MIL/uL (3.63-4.92); WHITE BLOOD COUNT (AUTO) 7.5 K/uL (3.8-11.8)
[2019-03-27] MEDS: BLOOD SUGAR DIAGNOSTIC 1 EACH STRIP VI SCH ×4 (06:41→20:58)
[2019-03-27 07:06] LABS: CARBON DIOXIDE 30 mmol/L (21-32); CHLORIDE 98 mmol/L (98-107); CREATININE 0.8 mg/dL (0.6-1.3); GLUCOSE 170 mg/dL (74-106); MAGNESIUM 1.8 mg/dL (1.8-2.4); POTASSIUM 3.6 mmol/L (3.5-5.1); UREA NITROGEN, BLOOD 26 mg/dL (7-18)
[2019-03-27] MEDS: INSULIN REGULAR, HUMAN 300 UNIT/3 ML VIAL SQ PRN ×2 (07:20→17:11)
[2019-03-27] MEDS: IPRATROPIUM BROMIDE 0.5 MG/2.5 ML NEBU NEB SCH ×3 (07:35→23:30)
[2019-03-27] MEDS: FUROSEMIDE 20 MG TABLET PO SCH (08:07)
[2019-03-27] MEDS: ISOSORBIDE MONONITRATE 30 MG TAB.SR.24H PO SCH (08:07)
[2019-03-27] MEDS: LORAZEPAM 1 MG TABLET PO SCH (08:07)
[2019-03-27] MEDS: CARVEDILOL 12.5 MG TABLET PO SCH ×2 (08:07→17:09)
[2019-03-27] MEDS: METFORMIN HCL 500 MG TABLET PO SCH ×2 (08:07→17:09)
[2019-03-27] MEDS: LISINOPRIL 20 MG TABLET PO SCH ×2 (08:07→17:10)
[2019-03-27] MEDS: AMLODIPINE 10 MG TABLET PO SCH (08:07)
[2019-03-27] MEDS: FOLIC ACID 1 MG TABLET PO SCH (08:08)
[2019-03-27] MEDS: PANTOPRAZOLE SODIUM 40 MG VIAL IV SCH ×2 (08:15→21:01)
[2019-03-27 08:58] LABS: EOSINOPHILS % (MANUAL) 5 % (0-8); LYMPHOCYTES % (MANUAL) 29 % (20-40)
[2019-03-27 09:00] LABS: MONOCYTES % (MANUAL) 3 % (2-10)
[2019-03-27 09:01] LABS: NEUTROPHILS % (MANUAL) 63 % (42-75)
[2019-03-27 11:56] VITALS: BP 115/58
--- NOTE | 2019-03-27 15:55 | NUR ---
pt went to gi lab via bed for gi procedure in stable condition
[2019-03-27 15:56] VITALS: BP 132/52
--- NOTE | 2019-03-27 16:58 | NUR ---
received from recovery room via bed in stable condition.vs are stable is at bed side
[2019-03-27] MEDS: COUMADIN VARIABLE DOSE REMINDE XX SCH (17:00)
[2019-03-27] MEDS: MIRTAZAPINE 15 MG TABLET PO SCH (17:10)
[2019-03-27 17:14] VITALS: BP 158/50
--- NOTE | 2019-03-27 19:30 | NUR ---
Received patient awake and alert sitting at edge of bed. Patient A/Ox3, no acute distress noted. No complaints of pain or SOB at this time. No complaints of chest pain. Heplock on the left forearm is intact and patent. Safety measures initiated. Bed is low and locked, call light within reach. Will continue to monitor.
[2019-03-27 20:42] VITALS: BP 112/45
[2019-03-27] MEDS: INSULIN REGULAR, HUMAN 300 UNITS/3 ML VIAL SQ PRN (21:00)
[2019-03-27] MEDS: ATORVASTATIN 20 MG TABLET PO SCH (21:01)
[2019-03-27] MEDS: MONTELUKAST SODIUM 10 MG TABLET PO SCH (21:01)
[2019-03-28 05:27] VITALS: BP 147/54
[2019-03-28] MEDS: methylPREDNISolone SOD SUCC 40 MG/ML VIAL IV SCH ×3 (06:09→23:15)
--- NOTE | 2019-03-28 06:33 | NUR ---
Patient slept well, no signs of acute distress noted. No complaints of pain or SOB. Vitals WNL. No s/s of hyper/hypoglycemia. Patient reported x2 dark colored stool. New heplock inserted on the right hand #22. Safety measures given. Will endorse to next shift.
[2019-03-28 06:44] LABS: BASOPHILS % (AUTO) 0.4 % (0.0-2.0); HEMATOCRIT 25.6 % (31.2-41.9); HEMOGLOBIN 8.2 g/dL (10.9-14.3); LYMPHOCYTES # (AUTO) 0.5 K/uL (20.0-40.0); LYMPHOCYTES % (AUTO) 6.9 % (20.5-51.5); MEAN CORPUSCULAR HGB CONC 32 g/dL (32.3-35.6); MEAN CORPUSCULAR VOLUME 74.9 fL (75.5-95.3); MONOCYTES # (AUTO) 0.3 K/uL (2.0-10.0); MONOCYTES % (AUTO) 4.4 % (0.0-11.0); NEUTROPHILS # (AUTO) 6.3 K/uL (1.8-8.9); NEUTROPHILS % (AUTO) 88.3 % (38.5-71.5); PLATELET COUNT (AUTO) 145 K/uL (179-408); RED BLOOD CELL COUNT(AUTO) 3.42 MIL/uL (3.63-4.92); WHITE BLOOD COUNT (AUTO) 7.1 K/uL (3.8-11.8)
[2019-03-28 07:02] LABS: CARBON DIOXIDE 29 mmol/L (21-32); CHLORIDE 97 mmol/L (98-107); GLUCOSE 160 mg/dL (74-106); MAGNESIUM 1.6 mg/dL (1.8-2.4); PHOSPHOROUS 4.2 mg/dL (2.5-4.9); POTASSIUM 3.5 mmol/L (3.5-5.1); UREA NITROGEN, BLOOD 28 mg/dL (7-18)
[2019-03-28] MEDS: IPRATROPIUM BROMIDE 0.5 MG/2.5 ML NEBU NEB SCH ×3 (07:32→22:33)
[2019-03-28] MEDS: BLOOD SUGAR DIAGNOSTIC 1 EACH STRIP VI SCH ×4 (07:56→21:00)
[2019-03-28] MEDS: INSULIN REGULAR, HUMAN 300 UNIT/3 ML VIAL SQ PRN ×3 (07:57→16:15)
[2019-03-28] MEDS: FOLIC ACID 1 MG TABLET PO SCH (08:01)
[2019-03-28] MEDS: FUROSEMIDE 20 MG TABLET PO SCH (08:01)
[2019-03-28] MEDS: METFORMIN HCL 500 MG TABLET PO SCH ×2 (08:01→17:01)
[2019-03-28] MEDS: ISOSORBIDE MONONITRATE 30 MG TAB.SR.24H PO SCH (08:01)
[2019-03-28] MEDS: LORAZEPAM 1 MG TABLET PO SCH (08:01)
[2019-03-28] MEDS: CARVEDILOL 12.5 MG TABLET PO SCH ×2 (08:02→16:18)
[2019-03-28] MEDS: AMLODIPINE 10 MG TABLET PO SCH (08:02)
[2019-03-28] MEDS: LISINOPRIL 20 MG TABLET PO SCH ×2 (08:02→16:18)
[2019-03-28] MEDS: PANTOPRAZOLE SODIUM 40 MG VIAL IV SCH ×2 (08:07→22:33)
[2019-03-28] MEDS: ENOXAPARIN SODIUM 60 MG/0.6 ML DISP.SYRIN SQ SCH ×2 (09:04→22:32)
[2019-03-28 09:17] LABS: CREATININE 0.9 mg/dL (0.6-1.3)
[2019-03-28 11:12] VITALS: BP 123/47
[2019-03-28 13:03] LABS: BAND % (MANUAL) 3 % (0-10); EOSINOPHILS % (MANUAL) 1 % (0-8); LYMPHOCYTES % (MANUAL) 9 % (20-40); MONOCYTES % (MANUAL) 4 % (2-10); NEUTROPHILS % (MANUAL) 83 % (42-75)
[2019-03-28 15:48] VITALS: BP 127/45
[2019-03-28] MEDS: COUMADIN VARIABLE DOSE REMINDE XX SCH (16:20)
[2019-03-28] MEDS ORDERED: WARFARIN SODIUM 2 MG TABLET PO ONE (17:00)
[2019-03-28] MEDS: MIRTAZAPINE 15 MG TABLET PO SCH (17:01)
[2019-03-28 20:32] VITALS: BP 118/58
[2019-03-28] MEDS: ATORVASTATIN 20 MG TABLET PO SCH (22:26)
[2019-03-28] MEDS: MONTELUKAST SODIUM 10 MG TABLET PO SCH (22:27)
--- NOTE | 2019-03-28 22:39 | NUR ---
After medication was scanned and opened, pt refused HHN tx. compliance spec was in the room. entry specialist Erickson notified.
[2019-03-29 05:07] VITALS: BP 128/42
[2019-03-29] MEDS: methylPREDNISolone SOD SUCC 40 MG/ML VIAL IV SCH ×2 (06:30→13:06)
[2019-03-29] MEDS: BLOOD SUGAR DIAGNOSTIC 1 EACH STRIP VI SCH ×2 (06:30→11:12)
[2019-03-29] MEDS: IPRATROPIUM BROMIDE 0.5 MG/2.5 ML NEBU NEB SCH ×2 (07:27→14:35)
[2019-03-29] MEDS ORDERED: PANTOPRAZOLE SODIUM 40 MG TABLET.DR PO ONE (07:30)
[2019-03-29] MEDS: INSULIN REGULAR, HUMAN 300 UNIT/3 ML VIAL SQ PRN ×2 (07:34→11:47)
[2019-03-29 07:59] LABS: HEMOGLOBIN 8.6 g/dL (10.9-14.3); LYMPHOCYTES # (AUTO) 0.5 K/uL (20.0-40.0); MONOCYTES # (AUTO) 0.3 K/uL (2.0-10.0); NEUTROPHILS # (AUTO) 6.1 K/uL (1.8-8.9)
[2019-03-29 08:01] LABS: CREATININE 0.9 mg/dL (0.6-1.3); MAGNESIUM 1.6 mg/dL (1.8-2.4); PHOSPHOROUS 3.8 mg/dL (2.5-4.9); POTASSIUM 3.5 mmol/L (3.5-5.1)
[2019-03-29] MEDS: FUROSEMIDE 20 MG TABLET PO SCH (08:09)
[2019-03-29] MEDS: METFORMIN HCL 500 MG TABLET PO SCH (08:09)
[2019-03-29] MEDS: ISOSORBIDE MONONITRATE 30 MG TAB.SR.24H PO SCH (08:09)
[2019-03-29] MEDS: LORAZEPAM 1 MG TABLET PO SCH (08:09)
[2019-03-29] MEDS: LISINOPRIL 20 MG TABLET PO SCH (08:10)
[2019-03-29] MEDS: AMLODIPINE 10 MG TABLET PO SCH (08:10)
[2019-03-29] MEDS: CARVEDILOL 12.5 MG TABLET PO SCH (08:10)
[2019-03-29] MEDS: FOLIC ACID 1 MG TABLET PO SCH (08:10)
[2019-03-29] MEDS: ENOXAPARIN SODIUM 60 MG/0.6 ML DISP.SYRIN SQ SCH (08:11)
[2019-03-29 08:13] LABS: BASOPHILS % (AUTO) 0.1 % (0.0-2.0); HEMATOCRIT 26.3 % (31.2-41.9); LYMPHOCYTES % (AUTO) 7.5 % (20.5-51.5); MEAN CORPUSCULAR HEMOGLOBIN 24.1 uug (24.7-32.8); MEAN CORPUSCULAR HGB CONC 33 g/dL (32.3-35.6); MEAN CORPUSCULAR VOLUME 73.5 fL (75.5-95.3); MONOCYTES % (AUTO) 4.5 % (0.0-11.0); NEUTROPHILS % (AUTO) 87.9 % (38.5-71.5); RED BLOOD CELL COUNT(AUTO) 3.58 MIL/uL (3.63-4.92); WHITE BLOOD COUNT (AUTO) 6.9 K/uL (3.8-11.8)
[2019-03-29 08:20] LABS: PLATELET COUNT (AUTO) 184 K/uL (179-408)
[2019-03-29] MEDS ORDERED: PANTOPRAZOLE SODIUM 40 MG VIAL IV SCH (09:00)
[2019-03-29 10:34] LABS: LYMPHOCYTES % (MANUAL) 10 % (20-40); MONOCYTES % (MANUAL) 5 % (2-10); NEUTROPHILS % (MANUAL) 85 % (42-75)
[2019-03-29] MEDS: MAGNESIUM SULFATE/D5W 100 ML IV SCH ×2 (10:55→11:14)
[2019-03-29 11:01] VITALS: BP 108/42
[2019-03-29] MEDS ORDERED: GUAIFENESIN/DEXTROMETHORPHAN 5 ML UDC PO PRN (12:45)
[2019-03-29 15:41] VITALS: BP 136/48
--- NOTE | 2019-03-29 16:52 | NUR ---
dc orders received noted and carried out,dc heplock per md orders,dc instructions and educations given to the pt pt verbalized understanding all the instruction .pt said she will follow up with her pcp in 3 days ,pt left the facility via private car in stable condition
[2019-03-29] MEDS ORDERED: PANTOPRAZOLE SODIUM 40 MG TABLET.DR PO SCH (17:00)
[2019-03-29] MEDS ORDERED: WARFARIN SODIUM 2 MG TABLET PO ONE (17:00)
== END 2019-03-29 16:55 | disposition home health service (06) | DRG 377 ==
LOC: ER 22:02 → TELE3 23:55 → MEDSURG3 03-26 08:49
PROVIDERS: ADMIT Nurse Practitioner Acute Care; ATTEND Student in an Organized Health Care Education/Training Program
PROC: 30233N1 Transfusion of Nonautologous Red Blood Cells into Peripheral Vein, Percutaneous Approach (ICD-10-PCS; principal; 2019-03-25)
PROC: 0DJ08ZZ Inspection of Upper Intestinal Tract, Via Natural or Artificial Opening Endoscopic (ICD-10-PCS; 2019-03-27)
DX: K29.01 Acute gastritis with bleeding (principal); I50.33 Acute on chronic diastolic (congestive) heart failure; D62 Acute posthemorrhagic anemia; D68.32 Hemorrhagic disorder due to extrinsic circulating anticoagulants; J44.1 Chronic obstructive pulmonary disease with (acute) exacerbation; I48.20 Chronic atrial fibrillation, unspecified; E87.1 Hypo-osmolality and hyponatremia; D68.59 Other primary thrombophilia; K92.1 Melena; I11.0 Hypertensive heart disease with heart failure; T45.515A Adverse effect of anticoagulants, initial encounter; Y92.019 Unspecified place in single-family (private) house as the place of occurrence of the external cause; F17.210 Nicotine dependence, cigarettes, uncomplicated; J44.9 Chronic obstructive pulmonary disease, unspecified; Z79.01 Long term (current) use of anticoagulants; Z95.2 Presence of prosthetic heart valve; E11.9 Type 2 diabetes mellitus without complications; Z79.84 Long term (current) use of oral hypoglycemic drugs; Z79.899 Other long term (current) drug therapy; R01.1 Cardiac murmur, unspecified; Z95.3 Presence of xenogenic heart valve; Z95.0 Presence of cardiac pacemaker; I70.0 Atherosclerosis of aorta; D69.6 Thrombocytopenia, unspecified; D70.9 Neutropenia, unspecified
CPT/HCPCS: 36415; 70030-TC; 71045; 83735; 84100; 84443; 85025; 85610; 85730; 86850; 86900; 86901; 86920; 87040; 87400; 93005; 94640; A4217; A4663; C9113; G0378; J1650; J1815; J1940; J2920; J2930; J3475; J3490; J3590; J7030; J7050; J7060; P9016-BL; P9021

== ENCOUNTER 2019-04-21 13:37 | Inpatient (IN) | payer MEDICARE, OTHER ==
[~2019-04-21] VITALS: Ht 162.6 cm; Wt 61.2 kg
[2019-04-21] MEDS ORDERED: ONDANSETRON 4 MG/2 ML VIAL IV ONE (14:00)
--- NOTE | 2019-04-21 14:12 | NUR ---
PT IS IN ROOM #2B. DR DOW EVALUATED THE PT.
[2019-04-21 14:15] LABS: BASOPHILS % (AUTO) 0.7 % (0.0-2.0); EOSINOPHILS # (AUTO) 0.1 K/uL (0.0-0.7); EOSINOPHILS % (AUTO) 1.9 % (0.0-7.0); LYMPHOCYTES # (AUTO) 0.7 K/uL (20.0-40.0); LYMPHOCYTES % (AUTO) 15.9 % (20.5-51.5); MEAN CORPUSCULAR HEMOGLOBIN 24.9 uug (24.7-32.8); MEAN CORPUSCULAR HGB CONC 32 g/dL (32.3-35.6); MEAN CORPUSCULAR VOLUME 76.9 fL (75.5-95.3); MONOCYTES # (AUTO) 0.5 K/uL (2.0-10.0); MONOCYTES % (AUTO) 11.4 % (0.0-11.0); NEUTROPHILS # (AUTO) 3.2 K/uL (1.8-8.9); NEUTROPHILS % (AUTO) 70.1 % (38.5-71.5); PLATELET COUNT (AUTO) 225 K/uL (179-408); WHITE BLOOD COUNT (AUTO) 4.6 K/uL (3.8-11.8)
[2019-04-21] MEDS ORDERED: ONDANSETRON 4 MG/2 ML VIAL ONE (14:16)
[2019-04-21 14:21] LABS: CREATININE 0.9 mg/dL (0.6-1.3); POTASSIUM 4.5 mmol/L (3.5-5.1)
[2019-04-21 14:24] LABS: HEMATOCRIT 18.5 % (31.2-41.9)
[2019-04-21 14:27] LABS: BILIRUBIN,DIRECT 0.2 mg/dL (0.0-0.2); BILIRUBIN,TOTAL 0.6 mg/dL (0.2-1.0); TOTAL PROTEIN, SERUM 6.1 g/dL (6.4-8.2)
[2019-04-21 15:10] LABS: BAND % (MANUAL) 4 % (0-10); EOSINOPHILS % (MANUAL) 3 % (0-8); LYMPHOCYTES % (MANUAL) 18 % (20-40); MONOCYTES % (MANUAL) 10 % (2-10); NEUTROPHILS % (MANUAL) 65 % (42-75)
--- NOTE | 2019-04-21 16:05 | NUR ---
BLOOD TRANSFUSION OF ONE PACK OF RBCs STARTED . NO S/S OF BLOOD TRANSFUSION REACTION.
--- NOTE | 2019-04-21 16:35 | NUR ---
REPORT WAS GIVEN TO ELECTRONIC COURT RECORDER. PT WAS TRANSFERED TO TELEMETRY ROOM #316.
[2019-04-21 17:01] VITALS: BP 110/55
--- NOTE | 2019-04-21 17:05 | NUR ---
RECEIVED PT FROM ER VIA [facility]. NO ACUTE DISTRESS OR SOB NOTED. PT ON O2 @ 2L/M VIA N/C . PT HAS BLOOD PRODUCT RUNNING AT THIS TIME. WILL CONTINUE DELIVERY VIA IV PUMP IN ORDER TO CONTINUE AND FINISH TRANSFUSION. VITALS DONE WNL. PT ALERT AND ORIENTED X4. PLEASANT AND COOPERATIVE. AT BEDSIDE. PLACED ON TELEMETRY MONITORING WITH ACCELERATED JUNCTIONAL RHYTHM WITH PVC. WILL CONTINUE TO MONITOR FOR SAFETY AND COMFORT.
[2019-04-21] MEDS ORDERED: HYDROCODONE/APAP 5-325MG TABLET PO PRN (17:15)
[2019-04-21] MEDS ORDERED: Z GUARD REMEDY PASTE 57 GM TUBE TOP PRN (17:15)
[2019-04-21] MEDS ORDERED: ZOLPIDEM 5 MG TABLET PO PRN (17:15)
[2019-04-21] MEDS ORDERED: ONDANSETRON 4 MG/2 ML VIAL IV PRN (17:15)
[2019-04-21] MEDS ORDERED: MAGNESIUM HYDROXIDE 30 ML LIQUID UDC PO PRN (17:15)
[2019-04-21] MEDS ORDERED: Medication Not On Formulary EA (Simethicone 125 MG) PO PRN (17:30)
[2019-04-21] MEDS ORDERED: ALBUTEROL SULFATE 2.5 MG/3 ML NEBU NEB PRN (17:30)
[2019-04-21] MEDS ORDERED: LORAZEPAM 0.5 MG TABLET PO PRN (17:30)
[2019-04-21] MEDS ORDERED: DICYCLOMINE HCL 20 MG TABLET PO PRN (17:30)
[2019-04-21] MEDS ORDERED: IPRATROPIUM BROMIDE 0.5 MG/2.5 ML NEBU NEB PRN (18:00)
--- NOTE | 2019-04-21 18:45 | NUR ---
BLOOD TRANSFUSION COMPLETED. VS: 98.1, 63, 133/46. NO ADVERSE EFFECTS NOTED. NO ACUTE DISTRESS OR SOB NOTED. PT SEEMS COMFORTABLE AND DENIES PAIN. TELE MONITORING SHOWS JUNCTIONAL RHYTHM. WILL GIVE REPORT ACCORDINGLY.
[2019-04-21] MEDS: MIRTAZAPINE 15 MG TABLET PO SCH (18:53)
[2019-04-21] MEDS: METFORMIN HCL 500 MG TABLET PO SCH (18:53)
--- NOTE | 2019-04-21 19:30 | NUR ---
RECEIVED PT AWAKE, ALERT AND ORIENTEDX4. PT IN NO ACUTE DISTRESS. IV INTACT. SAFETY AND COMFORT PROVIDED. WILL CONTINUE TO MONITOR.
[2019-04-21] MEDS: ATORVASTATIN 20 MG TABLET PO SCH (20:39)
[2019-04-21] MEDS: MAGNESIUM OXIDE 250 MG TABLET PO SCH (20:40)
[2019-04-21] MEDS: MONTELUKAST SODIUM 10 MG TABLET PO SCH (20:40)
[2019-04-21 20:54] VITALS: BP 111/43
[2019-04-21] MEDS ORDERED: LISINOPRIL 20 MG TABLET PO SCH (21:00)
[2019-04-22] VITALS: BP 108/48
[2019-04-22 04:00] VITALS: BP 120/54
[2019-04-22 05:54] LABS: BASOPHILS % (AUTO) 0.8 % (0.0-2.0); EOSINOPHILS # (AUTO) 0.1 K/uL (0.0-0.7); HEMATOCRIT 23.8 % (31.2-41.9); HEMOGLOBIN 7.7 g/dL (10.9-14.3); LYMPHOCYTES # (AUTO) 1.1 K/uL (20.0-40.0); LYMPHOCYTES % (AUTO) 23.9 % (20.5-51.5); MEAN CORPUSCULAR HEMOGLOBIN 25.2 uug (24.7-32.8); MEAN CORPUSCULAR HGB CONC 32 g/dL (32.3-35.6); MEAN CORPUSCULAR VOLUME 77.7 fL (75.5-95.3); MONOCYTES # (AUTO) 0.8 K/uL (2.0-10.0); MONOCYTES % (AUTO) 16.9 % (0.0-11.0); NEUTROPHILS # (AUTO) 2.5 K/uL (1.8-8.9); NEUTROPHILS % (AUTO) 55.4 % (38.5-71.5); PLATELET COUNT (AUTO) 226 K/uL (179-408); RED BLOOD CELL COUNT(AUTO) 3.06 MIL/uL (3.63-4.92); WHITE BLOOD COUNT (AUTO) 4.4 K/uL (3.8-11.8)
[2019-04-22 05:59] LABS: BILIRUBIN,TOTAL 0.8 mg/dL (0.2-1.0); CREATININE 1.1 mg/dL (0.6-1.3); MAGNESIUM 1.6 mg/dL (1.8-2.4); POTASSIUM 4.5 mmol/L (3.5-5.1); TOTAL PROTEIN, SERUM 6.2 g/dL (6.4-8.2)
[2019-04-22 06:56] LABS: THYROID STIMULATING HORMONE 1.254 mIU/mL (0.358-3.740)
--- NOTE | 2019-04-22 07:01 | NUR ---
PT SLEPT COMFORTABLY. PT IN NO ACUTE DISTRESS. IV INTACT. CRITICAL LAB OF INR 5.[address] FELDER JUST ORDERED HOLD COUMADIN. CHARGE NURSE AWARE. PRESCRIBED MEDICATION GIVEN AND PT TOLERATED IT WELL. SAFETY AND COMFORT PROVIDED. ALL NEEDS ARE MET, WILL ENDORSE TO INCOMING NURSE FOR CONTINUITY OF CARE.
[2019-04-22 07:11] LABS: EOSINOPHILS % (MANUAL) 3 % (0-8); LYMPHOCYTES % (MANUAL) 24 % (20-40); MONOCYTES % (MANUAL) 17 % (2-10); NEUTROPHILS % (MANUAL) 56 % (42-75)
[2019-04-22] MEDS ORDERED: FUROSEMIDE 40 MG/4 ML VIAL IV ONE (07:45)
--- NOTE | 2019-04-22 07:45 | NUR ---
RECEIVED PT RESTING IN BED. NO ACUTE DISTRESS OR SOB NOTED. PT ALERT AND ORIENTED X3. PLEASANT AND COOPERATIVE. BED LOCKED AND IN LOW POSITION. TELE MONITORING V PACED. WILL CONTINUE TO MONITOR FOR SAFETY AND COMFORT.
[2019-04-22] MEDS ORDERED: PHYTONADIONE 10 MG/1 ML AMPUL SQ ONE (08:00)
--- NOTE | 2019-04-22 08:03 | NUR ---
PT HAD SMALL BM BLACK IN COLOR. DR CURIEL AWARE.
[2019-04-22] MEDS: FUROSEMIDE 20 MG TABLET PO SCH (08:39)
[2019-04-22] MEDS ORDERED: IPRATROPIUM BROMIDE 0.5 MG/2.5 ML NEBU NEB SCH (09:00)
[2019-04-22] MEDS ORDERED: AMLODIPINE 10 MG TABLET PO SCH (09:00)
[2019-04-22] MEDS ORDERED: PANTOPRAZOLE SODIUM 40 MG VIAL IV SCH (09:00)
[2019-04-22] MEDS ORDERED: Medication Not On Formulary EA (Ascorbic Acid (Vitamin C) 500 MG) PO SCH (09:00)
[2019-04-22] MEDS ORDERED: ERGOCALCIFEROL 50,000 UNIT CAPSULE PO SCH (09:00)
[2019-04-22] MEDS: ACETAMINOPHEN 325 MG TABLET PO PRN ×2 (09:25→17:27)
[2019-04-22] MEDS: METFORMIN HCL 500 MG TABLET PO SCH ×2 (09:42→17:27)
[2019-04-22] MEDS: FOLIC ACID 1 MG TABLET PO SCH (09:42)
[2019-04-22] MEDS: CARVEDILOL 12.5 MG TABLET PO SCH ×2 (09:43→17:28)
[2019-04-22] MEDS: ASCORBIC ACID 500 MG TABLET PO SCH (09:44)
[2019-04-22] MEDS: ISOSORBIDE MONONITRATE 30 MG TAB.SR.24H PO SCH (09:44)
[2019-04-22] MEDS: LORAZEPAM 1 MG TABLET PO SCH (09:44)
[2019-04-22] MEDS: MAGNESIUM SULFATE/D5W 100 ML IV SCH ×2 (09:45→11:03)
[2019-04-22 11:14] VITALS: BP 105/44
[2019-04-22 15:14] VITALS: BP 124/48
[2019-04-22] MEDS: MIRTAZAPINE 15 MG TABLET PO SCH (17:27)
--- NOTE | 2019-04-22 18:05 | NUR ---
NO ACUTE DISTRESS OR SOB NOTED. PT ALERT AND ORIENTED X4. PLEASANT AND COOPERATIVE. PT STATES HAVING MUSCULAR PAIN IN THORAX. DR WEBBER AWARE..TELE MONITORING SHOWS V PACE. WILL GIVE REPORT ACCORDINGLY.
--- NOTE | 2019-04-22 20:00 | NUR ---
PATIENT RECEIVED INTO CARE, SITTING ON SIDE OF BED, ALERT/ORIENTED X3. PATIENT HAS NO COMPLAINTS OF PAIN OR DISCOMFORT AT THIS TIME. ALL SAFETY AND FALL PRECAUTION MEASURES ARE IN PLACE. CALL LIGHT AND PERSONAL ITEMS ARE WITHIN REACH AT ALL TIMES. WILL CONTINUE TO MONITOR AND ASSESS.
[2019-04-22 20:15] VITALS: BP 132/48
[2019-04-22] MEDS: ATORVASTATIN 20 MG TABLET PO SCH (22:21)
[2019-04-22] MEDS: MAGNESIUM OXIDE 250 MG TABLET PO SCH (22:21)
[2019-04-22] MEDS: MONTELUKAST SODIUM 10 MG TABLET PO SCH (22:21)
[2019-04-22] MEDS: PANTOPRAZOLE SODIUM 40 MG VIAL IV SCH (22:21)
[2019-04-23 00:26] VITALS: BP 115/40
[2019-04-23 04:00] VITALS: BP 125/68
--- NOTE | 2019-04-23 06:00 | NUR ---
PATIENT SLEPT COMFORTABLY THROUGHOUT NIGHT DURING THIS SHIFT. PATIENT COMPLAINED OF PAIN/DISCOMFORT IN UPPER ABDOMINAL AREA WHICH RADIATED TO BACK, BUT DID NOT WANT ANY TYLENOL. NURSE PROVIDED PATIENT WITH PRESCRIBED MYLICON BASED ON THE SIGNS/SYMPTOMS EXPRESSED BY PATIENT AND NURSING ASSESSMENT, WHICH WAS EFFECTIVE IN HELPING PATIENT EXPRESS GAS AND ULTIMATELY RELIEVING HER PAIN/DISCOMFORT. ALL PRESCRIBED MEDICATIONS WERE GIVEN ORDERED AND TOLERATED WELL WITH NO ADVERSE SIDE EFFECTS VERBALIZED BY PATIENT OR NOTED/OBSERVED BY NURSE. ALL SAFETY AND FALL PRECAUTION MEASURES REMAIN IN PLACE. CALL LIGHT AND PERSONAL ITEMS REMAIN WITHIN REACH AT ALL TIMES.
[2019-04-23 07:22] LABS: BASOPHILS % (AUTO) 0.9 % (0.0-2.0); EOSINOPHILS # (AUTO) 0.1 K/uL (0.0-0.7); EOSINOPHILS % (AUTO) 2.9 % (0.0-7.0); HEMATOCRIT 24.6 % (31.2-41.9); LYMPHOCYTES # (AUTO) 0.9 K/uL (20.0-40.0); LYMPHOCYTES % (AUTO) 19.9 % (20.5-51.5); MEAN CORPUSCULAR HEMOGLOBIN 25.2 uug (24.7-32.8); MEAN CORPUSCULAR HGB CONC 33 g/dL (32.3-35.6); MEAN CORPUSCULAR VOLUME 77.7 fL (75.5-95.3); MONOCYTES # (AUTO) 0.6 K/uL (2.0-10.0); MONOCYTES % (AUTO) 13.9 % (0.0-11.0); NEUTROPHILS # (AUTO) 2.7 K/uL (1.8-8.9); NEUTROPHILS % (AUTO) 62.4 % (38.5-71.5); PLATELET COUNT (AUTO) 213 K/uL (179-408); RED BLOOD CELL COUNT(AUTO) 3.17 MIL/uL (3.63-4.92); WHITE BLOOD COUNT (AUTO) 4.3 K/uL (3.8-11.8)
--- NOTE | 2019-04-23 07:40 | NUR ---
Pt reported PRINCIPAL TECHNOLOGIST Addendum: 04/23/19 at 1636 by MUSTAPHA SNYDER RN 0740: Pt reported anterior CP on Left and right and pain "going into ribs" on left and right of level 10/10 explained as tightness. PK=099/53 mmHG. HR=69. Applied supplemental O2 to pt 2L O2 via N/C. O2 Sat=99%. RR=22. Temp=97.7 F. Pt anxious. Noted controlled A-Fib with occasional V-Paced beats on diagnostic cardiac sonographer. Rapid Response Team called. EKG done. 0752: Left message to Dr. Yosef Ocasio, DNP, re: the same. Received order for Morphine 2 mg IVP as needed every 4 hours for pain and STAT CXR. 0812: Administered Simethicone 80 mg PO per MD PRN order, Ativan 1 mg PO as scheduled, Coreg 12.5 mg PO, Lasix 20 mg PO, Imdur and Protonix 40 mg IVP per MD orders. 0837: Morphine 2 mg IVP administered per MD PRN order. 0907: Noted large amounts loud belching. Pt reported relief of CP. Pt's now at bedside and rendering emotional support to pt. Effective. Pt calm and has relief of anxiety.l All safety precautions in place. Monitoring continued.
[2019-04-23 07:51] LABS: BILIRUBIN,TOTAL 0.9 mg/dL (0.2-1.0); CREATININE 0.8 mg/dL (0.6-1.3); PHOSPHOROUS 4.2 mg/dL (2.5-4.9); POTASSIUM 4.4 mmol/L (3.5-5.1); TOTAL PROTEIN, SERUM 6.8 g/dL (6.4-8.2)
[2019-04-23] MEDS: FOLIC ACID 1 MG TABLET PO SCH (08:12)
[2019-04-23] MEDS: ISOSORBIDE MONONITRATE 30 MG TAB.SR.24H PO SCH (08:12)
[2019-04-23] MEDS: LORAZEPAM 1 MG TABLET PO SCH (08:12)
[2019-04-23] MEDS: SIMETHICONE 80 MG TAB.CHEW PO PRN ×2 (08:12→15:06)
[2019-04-23] MEDS: PANTOPRAZOLE SODIUM 40 MG VIAL IV SCH ×2 (08:12→21:15)
[2019-04-23] MEDS: CARVEDILOL 12.5 MG TABLET PO SCH ×2 (08:13→17:53)
[2019-04-23] MEDS: METFORMIN HCL 500 MG TABLET PO SCH ×2 (08:13→17:52)
[2019-04-23] MEDS: FUROSEMIDE 20 MG TABLET PO SCH (08:13)
[2019-04-23] MEDS: ASCORBIC ACID 500 MG TABLET PO SCH (08:13)
[2019-04-23] MEDS: MORPHINE SULFATE 2 MG/1 ML DISP.SYRIN IV PRN (08:37)
[2019-04-23 10:31] LABS: MAGNESIUM 1.9 mg/dL (1.8-2.4); URIC ACID 7.8 mg/dL (2.6-6.0)
[2019-04-23 10:58] LABS: THYROID STIMULATING HORMONE 1.591 mIU/mL (0.358-3.740)
[2019-04-23 11:00] VITALS: BP 115/49
[2019-04-23] MEDS ORDERED: FUROSEMIDE 20 MG/2 ML VIAL IV ONE (14:30)
--- NOTE | 2019-04-23 15:06 | NUR ---
Noted pt with facial grimacing and moaning and reporting dyspepsia. Simethicone 80 mg PO administered again per MD orders. Will reassess. Monitoring continued.
--- NOTE | 2019-04-23 15:36 | NUR ---
Pt belching a lot, but reports relief of "rib pain" and dyspepsia. SBAR report given to Juventino yard jacker for continuity of care.
[2019-04-23 16:00] VITALS: BP 138/45
--- NOTE | 2019-04-23 17:00 | NUR ---
Received pt. from charge nurse Juventino. Pt. denies pain/ discomfort. Pt. denies SOB/ difficulty breathing. All needs met.
[2019-04-23] MEDS: MIRTAZAPINE 15 MG TABLET PO SCH (17:52)
--- NOTE | 2019-04-23 20:00 | NUR ---
Patient received into care, laying in bed, sleeping comfortably. Patient has no signs/symptoms of acute distress or discomfort noted/observed by nurse. Oxygen is running via NC @ 2L/min. All safety and fall precaution measures are in place. Call light and personal items are within reach. Will continue to monitor and assess.
[2019-04-23 20:56] VITALS: BP 148/58
[2019-04-23] MEDS: MAGNESIUM OXIDE 250 MG TABLET PO SCH (21:14)
[2019-04-23] MEDS: MONTELUKAST SODIUM 10 MG TABLET PO SCH (21:14)
[2019-04-23] MEDS: ATORVASTATIN 20 MG TABLET PO SCH (21:15)
[2019-04-24 00:40] VITALS: BP 128/51
[2019-04-24 04:15] VITALS: BP 164/64
--- NOTE | 2019-04-24 06:00 | NUR ---
PATIENT SLEPT THROUGHOUT NIGHT WITH NO COMPLAINTS OF PAIN OR DISCOMFORT VERBALIZED AND NO SIGNS/SYMPTOMS OF ACUTE DISTRESS OR DISCOMFORT NOTED/OBSERVED BY NURSE. ALL PRESCRIBED MEDICATIONS PROVIDED ORDERED AND TOLERATED WELL BY PATIENT WITH NO ADVERSE SIDE EFFECTS VERBALIZED BY PATIENT OR NOTED/OBSERVED BY NURSE. ALL PATIENT NEEDS MET PROMPTLY AND PATIENT IS WARM, DRY, AND COMFORTABLE. CALL LIGHT AND PERSONAL ITEMS REMAIN WITHIN REACH. SAFETY AND FALL PRECAUTION MEASURES REMAIN IN PLACE.
[2019-04-24 06:37] LABS: CREATININE 0.8 mg/dL (0.6-1.3); MAGNESIUM 1.5 mg/dL (1.8-2.4); PHOSPHOROUS 4.5 mg/dL (2.5-4.9); POTASSIUM 4.6 mmol/L (3.5-5.1); URIC ACID 7.8 mg/dL (2.6-6.0)
[2019-04-24 07:32] LABS: THYROID STIMULATING HORMONE 1.672 mIU/mL (0.358-3.740)
--- NOTE | 2019-04-24 08:21 | NUR ---
Received pt. resting in bed alert oriented x4. pt. denies pain/ discomfort. Pt. denies SOB/ difficulty breathing. Pt. on 2 L NC Oxygen at 100%. IV in R forearm 22 gauge intact patent saline lock. Safety measures in place. call light within reach. All needs met. Will continue to monitor pt.
[2019-04-24] MEDS: ASCORBIC ACID 500 MG TABLET PO SCH (08:28)
[2019-04-24] MEDS: LORAZEPAM 1 MG TABLET PO SCH (08:28)
[2019-04-24] MEDS: METFORMIN HCL 500 MG TABLET PO SCH (08:28)
[2019-04-24] MEDS: FOLIC ACID 1 MG TABLET PO SCH (08:28)
[2019-04-24] MEDS: ISOSORBIDE MONONITRATE 30 MG TAB.SR.24H PO SCH (08:29)
[2019-04-24] MEDS: FUROSEMIDE 20 MG TABLET PO SCH (08:29)
[2019-04-24] MEDS: PANTOPRAZOLE SODIUM 40 MG VIAL IV SCH (08:29)
[2019-04-24] MEDS: CARVEDILOL 12.5 MG TABLET PO SCH (08:29)
[2019-04-24] MEDS: MAGNESIUM SULFATE/D5W 100 ML IV SCH ×2 (08:35→09:39)
[2019-04-24] MEDS: MORPHINE SULFATE 2 MG/1 ML DISP.SYRIN IV PRN (10:43)
[2019-04-24 11:12] VITALS: BP 135/54
[2019-04-24] MEDS ORDERED: FUROSEMIDE 40 MG/4 ML VIAL IV ONE (12:15)
[2019-04-24 15:20] VITALS: BP 111/43
--- NOTE | 2019-04-24 16:19 | NUR ---
pt. discharged home via private car with . pt. wheeled downstairs in wheel chair. IV removed. ID band removed. All belongings with pt.
== END 2019-04-24 16:15 | disposition home or self-care (01) | DRG 811 ==
LOC: ER 13:37 → TELE3 16:16 → MEDSURG3 04-24 11:40
PROVIDERS: ADMIT Hospitalist; ATTEND Hospitalist
PROC: 30233N1 Transfusion of Nonautologous Red Blood Cells into Peripheral Vein, Percutaneous Approach (ICD-10-PCS; principal; 2019-04-21)
DX: D62 Acute posthemorrhagic anemia (principal); I50.33 Acute on chronic diastolic (congestive) heart failure; K29.71 Gastritis, unspecified, with bleeding; D68.32 Hemorrhagic disorder due to extrinsic circulating anticoagulants; K92.1 Melena; E44.1 Mild protein-calorie malnutrition; E87.1 Hypo-osmolality and hyponatremia; D68.9 Coagulation defect, unspecified; I48.20 Chronic atrial fibrillation, unspecified; I11.0 Hypertensive heart disease with heart failure; Z95.3 Presence of xenogenic heart valve; Z79.01 Long term (current) use of anticoagulants; J44.9 Chronic obstructive pulmonary disease, unspecified; T45.515A Adverse effect of anticoagulants, initial encounter; Y92.019 Unspecified place in single-family (private) house as the place of occurrence of the external cause; I70.0 Atherosclerosis of aorta; Z95.0 Presence of cardiac pacemaker; Z79.899 Other long term (current) drug therapy; F17.210 Nicotine dependence, cigarettes, uncomplicated; E11.9 Type 2 diabetes mellitus without complications
CPT/HCPCS: 36415; 70030-TC; 71045; 82533; 83735; 84100; 84443; 84550; 85025; 85610; 85730; 86850; 86900; 86901; 86920; 93005; 94664; A4663; C9113; G0378; J1940; J2270; J2405; J3430; J3475; J3590; J7040; J7050; P9016-BL; P9021

== ENCOUNTER 2020-09-14 13:20 | Inpatient (IN) | payer MEDICARE, OTHER ==
[~2020-09-14] VITALS: Ht 162.6 cm; Wt 61.2 kg
[2020-09-14 00:38] VITALS: BP 150/88
[~2020-09-14 13:20] MED LIST changes: +ALBU8.5H8 INH; +AMLO10TA59 PO; -AMLO10TA7 PO; +ATOR20TA PO; +DICY20TA11 PO; -ESCI5TAB PO; -FERR325T24 PO; -FOLI1TAB16 PO; +FOLI1TAB94 PO; +FURO-151 PO; -GEMF600T5 PO; +HYOS0.1275 SL; +IPRA0.2S6 NEB; +ISOS30TA PO; +LINA145C PO; -LISI-603 PO; +LISI20TA30 PO; +LORA0.5T PO; +MAGN250T10 PO; +MIRT-93 PO; -MIRT15TA7 PO; +MONT10TA33 PO; -PANT40TA4 PO; +PANT40TA49 PO; +SIME125C81 PO; +UMEC1BLS IH; -WARF3TAB59 PO
[2020-09-14] MEDS ORDERED: IV NORMAL SALINE 1000 ML BAG IV ONE (14:00)
[2020-09-14 14:07] LABS: MEAN CORPUSCULAR HEMOGLOBIN 28.1 uug (24.7-32.8); MEAN CORPUSCULAR VOLUME 81.4 fL (75.5-95.3); PLATELET COUNT (AUTO) 257 K/uL (179-408)
[2020-09-14 14:16] LABS: CREATININE 0.7 mg/dL (0.6-1.3); POTASSIUM 4.2 mmol/L (3.5-5.1)
[2020-09-14 14:22] LABS: BILIRUBIN,DIRECT 0.2 mg/dL (0.0-0.2); BILIRUBIN,TOTAL 0.6 mg/dL (0.2-1.0); TOTAL PROTEIN, SERUM 7.1 g/dL (6.4-8.2)
[2020-09-14 14:33] LABS: *BILIRUBIN,URIN NEGATIVE (NEGATIVE); *BLOOD, URINE NEGATIVE (NEGATIVE); *COLOR,URINE YELLOW (YELLOW); *KETONES,URINE NEGATIVE (NEGATIVE); *UROBILINOGEN,URINE 0.2 E.U./dl (NORMAL); LEUKOCYTE ESTERASE ,URINE TRACE (NEGATIVE); NITRITE, URINE NEGATIVE (NEGATIVE); UGLUCOSE NEGATIVE (NEGATIVE)
[2020-09-14 14:41] LABS: *CLARITY,URINE SLIGHTLY HAZY (CLEAR); BACTERIA,URINE FEW /HPF (NONE SEEN); RBC,URINE 0-3 /HPF (0-3); SQUAMOUS EPITHELIAL CELL,UR FEW /HPF (NONE SEEN)
[2020-09-14] MEDS ORDERED: CEFTRIAXONE /D5W 50ML IVPB **ER PYXIS IV ONE (14:59)
[2020-09-14] MEDS ORDERED: CEFTRIAXONE 1 G in IV DEXTROSE 5% 50 ML IV ONE (15:00)
[2020-09-14] MEDS ORDERED: ASCO500T10 PO (17:08)
[2020-09-14] MEDS ORDERED: APIX2.5T PO (17:08)
[2020-09-14] MEDS ORDERED: VENL75CA62 PO (17:08)
[2020-09-14] MEDS ORDERED: ERGOCALCIFEROL PO (17:08)
[2020-09-14] MEDS ORDERED: MEMA10TA PO (17:08)
[2020-09-14] MEDS ORDERED: CLON0.5T4 PO (17:08)
[2020-09-14] MEDS ORDERED: FURO40TA5 PO (17:08)
[2020-09-14] MEDS ORDERED: FERR325T28 PO (17:08)
[2020-09-14] MEDS ORDERED: HALOPERIDOL LACTATE 5 MG/1 ML VIAL IM STA ×2 (20:33→21:56)
[2020-09-14] MEDS ORDERED: ACETAMINOPHEN 325 MG TABLET PO PRN ×2 (20:45→21:45)
[2020-09-14] MEDS ORDERED: LORAZEPAM 2 MG/1 ML VIAL IV PRN (20:45)
[2020-09-14] MEDS ORDERED: ONDANSETRON INJ 8 MG in IV NORMAL SALINE 50 ML IV PRN (20:45)
[2020-09-14] MEDS ORDERED: CLONAZEPAM 0.5 MG TABLET PO PRN (21:30)
[2020-09-14] MEDS ORDERED: ALBUTEROL SULFATE 2.5 MG/3 ML NEBU NEB PRN (21:45)
[2020-09-14] MEDS ORDERED: MAGNESIUM HYDROXIDE 30 ML LIQUID UDC PO PRN (21:45)
[2020-09-14] MEDS ORDERED: KETOROLAC TROMETHAMINE 15 MG INJ IM PRN (21:45)
[2020-09-14 22:16] VITALS: BP 143/81
[2020-09-14] MEDS ORDERED: CLONIDINE-TTS 1 PATCH TD SCH (22:30)
[2020-09-15] MEDS ORDERED: PANTOPRAZOLE SODIUM 40 MG TABLET.DR PO SCH ×2 (07:00)
[2020-09-15 07:34] LABS: HEMATOCRIT 38.8 % (31.2-41.9); MEAN CORPUSCULAR HEMOGLOBIN 27.4 uug (24.7-32.8); MEAN CORPUSCULAR VOLUME 80.8 fL (75.5-95.3); PLATELET COUNT (AUTO) 251 K/uL (179-408)
[2020-09-15 07:59] LABS: THYROID STIMULATING HORMONE 1.289 mIU/mL (0.358-3.740)
[2020-09-15 08:12] LABS: BILIRUBIN,TOTAL 0.3 mg/dL (0.2-1.0); CREATININE 0.7 mg/dL (0.6-1.3); MAGNESIUM 1.7 mg/dL (1.8-2.4); PHOSPHOROUS 3.6 mg/dL (2.5-4.9); POTASSIUM 3.2 mmol/L (3.5-5.1); TOTAL PROTEIN, SERUM 7.7 g/dL (6.4-8.2)
[2020-09-15] MEDS: MEMANTINE HCL 10 MG TABLET PO SCH ×2 (08:13→08:21)
[2020-09-15] MEDS: VENLAFAXINE XR 75 MG TAB.ER.24H PO SCH ×2 (08:13→08:21)
[2020-09-15] MEDS ORDERED: AMLODIPINE 10 MG TABLET PO SCH (09:00)
[2020-09-15] MEDS ORDERED: CLONIDINE-TTS 1 PATCH TD SCH (09:00)
[2020-09-15] MEDS ORDERED: CARVEDILOL 12.5 MG TABLET PO SCH (09:00)
[2020-09-15] MEDS ORDERED: APIXABAN 2.5 MG TABLET PO SCH (09:00)
[2020-09-15] MEDS ORDERED: MAGNESIUM OXIDE 400 MG TABLET PO ONE ×2 (09:30)
[2020-09-15] MEDS ORDERED: POTASSIUM CHLORIDE 20 MEQ TAB.PRT.SR PO ONE (09:30)
[2020-09-15 09:53] VITALS: BP 154/61
[2020-09-15] MEDS ORDERED: MIRTAZAPINE 15 MG TABLET PO SCH (18:00)
[2020-09-15] MEDS ORDERED: ATORVASTATIN 20 MG TABLET PO SCH (21:00)
[2020-09-15] MEDS ORDERED: MONTELUKAST SODIUM 10 MG TABLET PO SCH (21:00)
== END 2020-09-15 11:25 | disposition home health service (06) | DRG 552 ==
LOC: ER 13:20 → MEDSURG3 16:57 → TELE3 17:33 → MEDSURG3 21:10
PROVIDERS: ADMIT Internal Medicine; ATTEND Internal Medicine
DX: M51.9 Unspecified thoracic, thoracolumbar and lumbosacral intervertebral disc disorder (principal); F03.91 Unspecified dementia, unspecified severity, with behavioral disturbance; E22.2 Syndrome of inappropriate secretion of antidiuretic hormone; N39.0 Urinary tract infection, site not specified; I48.20 Chronic atrial fibrillation, unspecified; D68.59 Other primary thrombophilia; N28.1 Cyst of kidney, acquired; Z95.0 Presence of cardiac pacemaker; Z91.19 Patient's noncompliance with other medical treatment and regimen; J44.9 Chronic obstructive pulmonary disease, unspecified; F17.210 Nicotine dependence, cigarettes, uncomplicated; K56.41 Fecal impaction; Z95.3 Presence of xenogenic heart valve; Z90.49 Acquired absence of other specified parts of digestive tract; I70.8 Atherosclerosis of other arteries; I70.0 Atherosclerosis of aorta; G89.29 Other chronic pain; M19.90 Unspecified osteoarthritis, unspecified site; I25.10 Atherosclerotic heart disease of native coronary artery without angina pectoris; Z74.09 Other reduced mobility; I50.9 Heart failure, unspecified; E87.6 Hypokalemia; E83.42 Hypomagnesemia; E78.5 Hyperlipidemia, unspecified; I11.0 Hypertensive heart disease with heart failure; E11.9 Type 2 diabetes mellitus without complications; Z79.01 Long term (current) use of anticoagulants; Z79.84 Long term (current) use of oral hypoglycemic drugs
CPT/HCPCS: 36415; 70030-TC; 71045; 83605; 83690; 83735; 84100; 84443; 85025; 87086; 93005; A4663; G0378; J0696; J1630; J2405; J3490; J7030

== ENCOUNTER 2021-03-27 16:13 | Inpatient (IN) | payer MEDICARE, OTHER ==
[~2021-03-27] VITALS: Ht 154.9 cm; Wt 51.4 kg
[~2021-03-27 16:13] MED LIST changes: +APIX2.5T PO; +ASCO500T10 PO; +CLON0.5T4 PO; +ERGOCALCIFEROL PO; +FERR325T28 PO; -FURO-151 PO; +FURO40TA5 PO; -HYOS0.1275 SL; -IPRA0.2S6 NEB; -ISOS30TA PO; -LORA1TAB PO; +MEMA10TA PO; -SIME125C81 PO; -UMEC1BLS IH; +VENL75CA62 PO
[2021-03-27 16:54] LABS: HEMATOCRIT 34.6 % (31.2-41.9); MEAN CORPUSCULAR HEMOGLOBIN 28.1 uug (24.7-32.8); MEAN CORPUSCULAR VOLUME 81.8 fL (75.5-95.3); PLATELET COUNT (AUTO) 205 K/uL (179-408)
[2021-03-27 16:59] LABS: CREATININE 0.7 mg/dL (0.6-1.3); POTASSIUM 3.9 mmol/L (3.5-5.1)
[2021-03-27] MEDS ORDERED: UMEC1BLS IH (17:36)
[2021-03-27] MEDS ORDERED: LUBI24CA5 PO (17:36)
[2021-03-27] MEDS ORDERED: HYOS0.1273 PO (17:36)
[2021-03-27] MEDS ORDERED: WARF3TAB59 PO (17:36)
[2021-03-27] MEDS ORDERED: ISOS60TA72 PO (17:36)
[2021-03-27] MEDS ORDERED: VITAMIN D PO (17:36)
[2021-03-27] MEDS ORDERED: FUROSEMIDE 20 MG/2 ML VIAL IV ONE (17:45)
[2021-03-27] MEDS ORDERED: ASPIRIN 81 MG TAB.CHEW PO ONE (18:00)
[2021-03-27] MEDS ORDERED: ASPIRIN 81 MG TAB.CHEW ONE (18:06)
[2021-03-27] MEDS ORDERED: FUROSEMIDE 20 MG/2 ML VIAL ONE (18:21)
[2021-03-27] MEDS ORDERED: [UNRECOGNIZED DRUG - OTHER] PO SCH (21:15)
[2021-03-27] MEDS ORDERED: ENALAPRILAT DIHYDRATE 1.25 MG/1 ML VIAL IV PRN (21:30)
[2021-03-27] MEDS ORDERED: HALOPERIDOL LACTATE 5 MG/1 ML VIAL IM PRN (21:30)
[2021-03-27] MEDS ORDERED: MORPHINE SULFATE 2 MG/1 ML DISP.SYRIN IV PRN (21:30)
[2021-03-27] MEDS ORDERED: levoFLOXacin 500 MG/D5W 500 MG in PREMIXED 1 EACH IV SCH (21:30)
[2021-03-27] MEDS ORDERED: ACETAMINOPHEN 325 MG TABLET PO PRN (21:30)
[2021-03-27 21:37] VITALS: BP 142/55
[2021-03-27] MEDS: MIRTAZAPINE 15 MG TABLET PO SCH (21:40)
[2021-03-27] MEDS: LORAZEPAM 0.5 MG TABLET PO SCH (21:40)
[2021-03-27] MEDS ORDERED: levoFLOXacin 500 MG/D5W 100 ML ONE (22:18)
[2021-03-27] MEDS: methylPREDNISolone SOD SUCC 40 MG/ML VIAL IV SCH (22:35)
[2021-03-28 00:21] VITALS: BP 136/58
[2021-03-28] MEDS: LORAZEPAM 0.5 MG TABLET PO SCH ×4 (03:36→20:50)
[2021-03-28 04:34] VITALS: BP 157/65
[2021-03-28] MEDS: methylPREDNISolone SOD SUCC 40 MG/ML VIAL IV SCH ×3 (06:21→21:10)
[2021-03-28] MEDS: PANTOPRAZOLE SODIUM 40 MG TABLET.DR PO SCH (06:21)
[2021-03-28 07:08] LABS: HEMATOCRIT 32.2 % (31.2-41.9); MEAN CORPUSCULAR HEMOGLOBIN 27.4 uug (24.7-32.8); MEAN CORPUSCULAR VOLUME 81.7 fL (75.5-95.3); PLATELET COUNT (AUTO) 196 K/uL (179-408)
[2021-03-28 07:31] LABS: THYROID STIMULATING HORMONE 0.467 mIU/mL (0.358-3.740)
[2021-03-28 07:38] LABS: BILIRUBIN,TOTAL 0.5 mg/dL (0.2-1.0); CREATININE 0.8 mg/dL (0.6-1.3); MAGNESIUM 1.6 mg/dL (1.8-2.4); PHOSPHOROUS 3.6 mg/dL (2.5-4.9); POTASSIUM 3.4 mmol/L (3.5-5.1); TOTAL PROTEIN, SERUM 7.4 g/dL (6.4-8.2)
[2021-03-28] MEDS: ASCORBIC ACID 500 MG TABLET PO SCH (08:26)
[2021-03-28] MEDS: AMLODIPINE 10 MG TABLET PO SCH (08:26)
[2021-03-28] MEDS: CARVEDILOL 12.5 MG TABLET PO SCH ×2 (08:26→17:04)
[2021-03-28] MEDS: ISOSORBIDE MONONITRATE 30 MG TAB.SR.24H PO SCH (08:26)
[2021-03-28] MEDS: LISINOPRIL 20 MG TABLET PO SCH ×2 (08:26→16:29)
[2021-03-28] MEDS ORDERED: Linaclotide (Linzess) 145 MCG) PO SCH (09:00)
[2021-03-28] MEDS ORDERED: MAGNESIUM OXIDE 250 MG TABLET PO SCH (09:00)
[2021-03-28] MEDS ORDERED: POTASSIUM CHLORIDE 20 MEQ TAB.PRT.SR PO ONE (09:00)
[2021-03-28] MEDS ORDERED: FUROSEMIDE 20 MG/2 ML VIAL IV SCH (09:00)
[2021-03-28] MEDS: MAGNESIUM OXIDE 250 MG TABLET PO SCH ×2 (09:26→20:53)
[2021-03-28] MEDS ORDERED: MAGNESIUM SULFATE/D5W 100 ML IV SCH (09:30)
[2021-03-28 11:46] VITALS: BP 108/58
[2021-03-28] MEDS ORDERED: APIX2.5T PO (12:20)
[2021-03-28] MEDS: APIXABAN 2.5 MG TABLET PO SCH ×2 (12:33→21:09)
[2021-03-28] MEDS ORDERED: FURO40TA5 PO (12:51)
[2021-03-28] MEDS ORDERED: MEMA10TA PO (12:51)
[2021-03-28 15:34] VITALS: BP 106/53
[2021-03-28] MEDS: MEMANTINE HCL 10 MG TABLET PO SCH (16:29)
[2021-03-28 20:00] VITALS: BP 153/74
[2021-03-28] MEDS: MIRTAZAPINE 15 MG TABLET PO SCH (20:50)
[2021-03-28] MEDS ORDERED: MONTELUKAST SODIUM 10 MG TABLET PO SCH (21:00)
[2021-03-28] MEDS ORDERED: ATORVASTATIN 20 MG TABLET PO SCH (21:00)
[2021-03-28] MEDS ORDERED: LEVOFLOXACIN/D5W 250 MG in PREMIX 1 EA IV SCH (22:00)
[2021-03-29] MEDS: LORAZEPAM 0.5 MG TABLET PO SCH ×2 (03:11→08:20)
[2021-03-29 04:00] VITALS: BP 143/62
[2021-03-29] MEDS: PANTOPRAZOLE SODIUM 40 MG TABLET.DR PO SCH (06:45)
[2021-03-29] MEDS: methylPREDNISolone SOD SUCC 40 MG/ML VIAL IV SCH (06:45)
[2021-03-29 06:49] LABS: HEMATOCRIT 32.7 % (31.2-41.9); MEAN CORPUSCULAR HEMOGLOBIN 27.8 uug (24.7-32.8); MEAN CORPUSCULAR VOLUME 82.3 fL (75.5-95.3); PLATELET COUNT (AUTO) 204 K/uL (179-408)
[2021-03-29 07:31] LABS: CREATININE 1.2 mg/dL (0.6-1.3); MAGNESIUM 2.3 mg/dL (1.8-2.4); PHOSPHOROUS 4.6 mg/dL (2.5-4.9)
[2021-03-29] MEDS: ASCORBIC ACID 500 MG TABLET PO SCH (08:01)
[2021-03-29 08:02] VITALS: BP 143/62
[2021-03-29] MEDS: CARVEDILOL 12.5 MG TABLET PO SCH (08:02)
[2021-03-29] MEDS: ISOSORBIDE MONONITRATE 30 MG TAB.SR.24H PO SCH (08:02)
[2021-03-29] MEDS: LISINOPRIL 20 MG TABLET PO SCH (08:02)
[2021-03-29] MEDS: MEMANTINE HCL 10 MG TABLET PO SCH (08:02)
[2021-03-29] MEDS: APIXABAN 2.5 MG TABLET PO SCH (08:02)
[2021-03-29] MEDS: AMLODIPINE 10 MG TABLET PO SCH (08:02)
[2021-03-29] MEDS: MAGNESIUM OXIDE 250 MG TABLET PO SCH (08:39)
[2021-03-29] MEDS ORDERED: ERGOCALCIFEROL 50,000 UNIT CAPSULE PO SCH (09:00)
[2021-03-29] MEDS ORDERED: FUROSEMIDE 20 MG TABLET PO SCH (09:00)
[2021-03-29] MEDS ORDERED: ATOR10TA PO (10:31)
== END 2021-03-29 11:11 | disposition home or self-care (01) | DRG 291 ==
LOC: ER 16:16 → TELE3 20:45 → MEDSURG3 03-28 10:51
PROVIDERS: ADMIT Internal Medicine; ATTEND Internal Medicine
DX: I11.0 Hypertensive heart disease with heart failure (principal); I50.33 Acute on chronic diastolic (congestive) heart failure; I48.20 Chronic atrial fibrillation, unspecified; D68.59 Other primary thrombophilia; E22.2 Syndrome of inappropriate secretion of antidiuretic hormone; J44.1 Chronic obstructive pulmonary disease with (acute) exacerbation; E11.9 Type 2 diabetes mellitus without complications; D64.9 Anemia, unspecified; I25.119 Atherosclerotic heart disease of native coronary artery with unspecified angina pectoris; F03.90 Unspecified dementia, unspecified severity, without behavioral disturbance, psychotic disturbance, mood disturbance, and anxiety; Z95.2 Presence of prosthetic heart valve; Z74.09 Other reduced mobility; E78.5 Hyperlipidemia, unspecified; M19.90 Unspecified osteoarthritis, unspecified site; R91.1 Solitary pulmonary nodule; K59.00 Constipation, unspecified; K56.41 Fecal impaction; N28.1 Cyst of kidney, acquired; Z20.822 Contact with and (suspected) exposure to COVID-19; Z95.0 Presence of cardiac pacemaker; Z79.01 Long term (current) use of anticoagulants; F17.210 Nicotine dependence, cigarettes, uncomplicated
CPT/HCPCS: 36415; 70030-TC; 71045; 83735; 84100; 84443; 85025; 85610; 93005; 93307; G0378; J1940; J1956; J2920; J7040

== ENCOUNTER 2021-08-15 21:04 | Emergency (ER) | payer MEDICARE, OTHER ==
[~2021-08-15] VITALS: Ht 139.7 cm; Wt 49.9 kg
[~2021-08-15 21:04] MED LIST changes: -ALBU8.5H8 INH; +ATOR10TA PO; -ATOR20TA PO; -CLON0.5T4 PO; -ERGOCALCIFEROL PO; -FERR325T28 PO; +HYOS0.1273 PO; +ISOS60TA72 PO; -LINA145C PO; +LUBI24CA5 PO; +UMEC1BLS IH; -VENL75CA62 PO; +VITAMIN D PO
--- NOTE | 2021-08-15 21:30 | NUR ---
Pt brought in by private amb because of a very brief period of chest pain after a short coughing spell while she was eating. Pain went away shortly there after and issue resolved itself. Daughter in law believes that it wasnt chest pain but abd pain from gas which pt has confused for chest pain in the past. Pt placed in room 1b, on gurney in pos of comfort. Connected to bedside monitor, Afib at 50s and 60s, 148/67, 63bpm,98%RA, 16rpm. Pt denies any pain, sob, n/v, dizziness or discomfort. Pt is AAOx4, totally lucid, can answer questions and follow commands, afebrile, PERRLA, no oral lesions, no jvd, no trach deviation. PE WNL, VSS, NAD. No s/sxof distress present
[2021-08-15 21:45] LABS: HEMATOCRIT 32.9 % (31.2-41.9); MEAN CORPUSCULAR HEMOGLOBIN 27.2 uug (24.7-32.8); MEAN CORPUSCULAR VOLUME 80.3 fL (75.5-95.3); PLATELET COUNT (AUTO) 189 K/uL (179-408)
[2021-08-15 21:48] LABS: CARBON DIOXIDE 30 mmol/L (21-32); CHLORIDE 96 mmol/L (98-107); CREATININE 0.7 mg/dL (0.6-1.3); GLUCOSE 121 mg/dL (74-106); UREA NITROGEN, BLOOD 8 mg/dL (7-18)
[2021-08-15] MEDS ORDERED: MAGNESIUM SULFATE/D5W 100 ML IV SCH (22:15)
[2021-08-15] MEDS ORDERED: MAGNESIUM SULFATE/D5W 100 ML ONE (23:02)
--- NOTE | 2021-08-15 23:12 | NUR ---
Mag 100mg in 100ml hung on pt, running now at approx 100ml/hr. VSS, no complaints of pain, sob, n/v, dizziness or discomfort. Pt resting quietly in pos of comfort, supine HOB at 40degrees. VSS, hr=60BPM, 136/63, 94%RA, 0/10 pain. Pt is afib with freq PVCs, asyptomatic with good color and temp.
--- NOTE | 2021-08-15 23:38 | NUR ---
cardiopulmonary technologist chief at bedside for repeat blood draw. EDMD will determine dispo status after labs result.
--- NOTE | 2021-08-16 00:10 | NUR ---
EDMD at bedside to discuss findings, impression and dispo with pt and daughter in law. EDMD informed pt that he will be priniting up dc instuctions and that they should be getting ready to be dced home.
--- NOTE | 2021-08-16 00:25 | NUR ---
Last set of vitals obtained. VSS, PE WNL, pt has excellent distal pulsess x4ext. Doll Wigs Hackler strength bilat equal. Pt has good muscle tone and strength in lower ext. Pt can ambulate without difficulty, with steady gait, very independent with ADLs. 136/72, 98%RA, 66bpm 16 rpm, no complaints of pain, sob, n/v or discomfort of any kind. NAD, lungs clear. satting well. Pt and fam given DC instructions and pt acknowledged understanding of aftercare. Pt signed out and ambulated out dept with steady gait.
[2021-08-16 00:46] VITALS: BP 136/72
== END 2021-08-16 00:25 | disposition home or self-care (01) ==
LOC: ER 21:55
DX: R07.2 Precordial pain (principal); I48.91 Unspecified atrial fibrillation; J44.9 Chronic obstructive pulmonary disease, unspecified; E11.9 Type 2 diabetes mellitus without complications; F17.200 Nicotine dependence, unspecified, uncomplicated; Z79.01 Long term (current) use of anticoagulants; Z79.899 Other long term (current) drug therapy; Z95.2 Presence of prosthetic heart valve; Z79.84 Long term (current) use of oral hypoglycemic drugs
CPT/HCPCS: 36415; 71045; 80048; 83735; 83880; 84484 ×2; 85025; 85379; 93005; 96365; 99285; J3475; A4663

== ENCOUNTER 2021-10-25 22:28 | Inpatient (IN) | payer MEDICARE, OTHER ==
[~2021-10-25] VITALS: Ht 162.6 cm; Wt 54.4 kg
[2021-10-25] MEDS ORDERED: ALBUTEROL SULFATE 2.5 MG/3 ML NEBU NEB ONE (22:45)
[2021-10-25] MEDS ORDERED: IPRATROPIUM BROMIDE 0.5 MG/2.5 ML NEBU NEB ONE (22:45)
--- NOTE | 2021-10-25 22:58 | NUR ---
Respiratory at bedside administering breathing treatment
[2021-10-25 23:04] LABS: HEMATOCRIT 31.1 % (31.2-41.9); MEAN CORPUSCULAR HEMOGLOBIN 26.9 uug (24.7-32.8); MEAN CORPUSCULAR VOLUME 81.2 fL (75.5-95.3); PLATELET COUNT (AUTO) 189 K/uL (179-408)
[2021-10-25 23:10] LABS: CARBON DIOXIDE 31 mmol/L (21-32); CHLORIDE 96 mmol/L (98-107); CREATININE 0.9 mg/dL (0.6-1.3); GLUCOSE 188 mg/dL (74-106); POTASSIUM 4.2 mmol/L (3.5-5.1); UREA NITROGEN, BLOOD 11 mg/dL (7-18)
[2021-10-25] MEDS ORDERED: ALBUTEROL SULFATE 2.5 MG/3 ML NEBU ONE ×2 (23:11→23:16)
[2021-10-25] MEDS ORDERED: IPRATROPIUM BROMIDE 0.5 MG/2.5 ML NEBU ONE (23:11)
[2021-10-25] MEDS ORDERED: LORAZEPAM 0.5 MG TABLET ONE (23:40)
[2021-10-25] MEDS ORDERED: LORAZEPAM 0.5 MG TABLET PO ONE (23:45)
--- NOTE | 2021-10-26 02:20 | NUR ---
Dr. Park forest fire prevention specialist with Germain Rucker NP
[2021-10-26] MEDS ORDERED: LORAZEPAM 0.5 MG TABLET PO SCH ×3 (02:30→18:00)
[2021-10-26] MEDS ORDERED: ONDANSETRON 4 MG/2 ML VIAL IV PRN (02:30)
[2021-10-26] MEDS ORDERED: HOME MED MISCELLANEOUS XX SCH ×2 (02:30)
[2021-10-26] MEDS ORDERED: DEXTROSE 50% 50 ML DISP.SYRIN IV PRN (02:30)
[2021-10-26] MEDS ORDERED: HYOSCYAMINE SULFATE 0.125 MG TABLET PO PRN (02:30)
[2021-10-26] MEDS ORDERED: MAGNESIUM HYDROXIDE 30 ML LIQUID UDC PO PRN (02:30)
[2021-10-26] MEDS ORDERED: REMEDY ESSENTIAL ZINC PASTE 113 GM TP PRN (02:30)
[2021-10-26] MEDS ORDERED: ACETAMINOPHEN 325 MG TABLET PO PRN (02:30)
[2021-10-26] MEDS ORDERED: LORAZEPAM 0.5 MG TABLET ONE ×2 (05:11→05:47)
--- NOTE | 2021-10-26 05:50 | NUR ---
Pt very anxious, yelling and stating that she cant be here anymore. Daughter called and spoke with patient. Patient states that she needs something to relax her.
[2021-10-26] MEDS ORDERED: LORAZEPAM 0.5 MG TABLET PO ONE (06:00)
[2021-10-26] MEDS ORDERED: PANTOPRAZOLE SODIUM 40 MG TABLET.DR PO ONE ×2 (06:07→12:48)
[2021-10-26] MEDS: PANTOPRAZOLE SODIUM 40 MG TABLET.DR PO SCH (06:07)
[2021-10-26] MEDS: BLOOD SUGAR DIAGNOSTIC 1 EACH STRIP VI SCH ×4 (06:39→21:00)
[2021-10-26] MEDS ORDERED: ATOR20TA PO (08:38)
[2021-10-26] MEDS ORDERED: FERR325T28 PO (08:42)
[2021-10-26] MEDS ORDERED: LORAZEPAM 1 MG TABLET PO PRN (08:45)
[2021-10-26] MEDS: ASCORBIC ACID 500 MG TABLET PO SCH (09:00)
[2021-10-26] MEDS: AMLODIPINE 10 MG TABLET PO SCH (09:00)
[2021-10-26] MEDS ORDERED: FLUTICASONE/VILANTEROL 1 EACH BLST.W.DEV INH SCH (09:00)
[2021-10-26] MEDS: DICYCLOMINE HCL 20 MG TABLET PO SCH ×3 (09:00→17:00)
[2021-10-26] MEDS: LISINOPRIL 20 MG TABLET PO SCH ×2 (09:00→17:00)
[2021-10-26] MEDS: APIXABAN 2.5 MG TABLET PO SCH ×2 (09:00→21:00)
[2021-10-26] MEDS ORDERED: ISOSORBIDE MONONITRATE 30 MG TAB.SR.24H PO SCH (09:00)
[2021-10-26] MEDS: FERROUS SULFATE 325 MG TABEC PO SCH ×2 (09:00→17:00)
[2021-10-26] MEDS: CARVEDILOL 12.5 MG TABLET PO SCH ×2 (09:00→17:00)
[2021-10-26] MEDS ORDERED: METFORMIN HCL 500 MG TABLET PO SCH ×2 (09:00→18:00)
[2021-10-26] MEDS: FOLIC ACID 1 MG TABLET PO SCH (09:00)
[2021-10-26] MEDS: FUROSEMIDE 40 MG TABLET PO SCH (09:00)
[2021-10-26] MEDS ORDERED: [UNRECOGNIZED DRUG - OTHER] PO SCH (09:00)
[2021-10-26] MEDS ORDERED: LUBIPROSTONE 24 MG PO SCH (09:00)
[2021-10-26] MEDS: MEMANTINE HCL 10 MG TABLET PO SCH ×2 (09:00→17:00)
[2021-10-26] MEDS: MAGNESIUM OXIDE 250 MG TABLET PO SCH ×2 (09:00→21:00)
--- NOTE | 2021-10-26 10:00 | NUR ---
Pt with occassional restlessness. Commode at bedside. Reoriented patient to call for help is she's going to use the commode. Hospital bed provided.
[2021-10-26] MEDS ORDERED: IV NORMAL SALINE 250 ML IV ONE (10:58)
[2021-10-26] MEDS ORDERED: SWABABLE VALVE TRANSFER SET EA MC ONE (10:58)
[2021-10-26] MEDS ORDERED: IOHEXOL 350 100 ML INFUS..BTL ONE (10:58)
--- NOTE | 2021-10-26 11:00 | NUR ---
Pt transferred to hospital bed. Continued admitting care.
[2021-10-26] MEDS: INSULIN REGULAR, HUMAN 300 UNIT/3 ML VIAL SQ PRN ×4 (13:00→22:48)
[2021-10-26] MEDS ORDERED: IPRATROPIUM BROMIDE 0.5 MG/2.5 ML NEBU NEB PRN (15:15)
[2021-10-26] MEDS ORDERED: ALBUTEROL SULFATE 1.25 MG/3 ML NEBU NEB PRN (15:15)
[2021-10-26] MEDS ORDERED: LORAZEPAM 1 MG TABLET ONE (15:23)
[2021-10-26] MEDS ORDERED: FUROSEMIDE 20 MG/2 ML VIAL IV ONE (15:30)
[2021-10-26] MEDS ORDERED: FUROSEMIDE 40 MG TABLET ONE (15:32)
[2021-10-26] MEDS ORDERED: ASCORBIC ACID 500 MG TABLET ONE (15:32)
[2021-10-26] MEDS ORDERED: FOLIC ACID 1 MG TABLET ONE (15:40)
[2021-10-26] MEDS ORDERED: CARVEDILOL 12.5 MG TABLET ONE ×2 (15:40→18:14)
[2021-10-26] MEDS ORDERED: FUROSEMIDE 20 MG/2 ML VIAL ONE (15:40)
[2021-10-26] MEDS ORDERED: ALBUTEROL SULFATE 1.25 MG/3 ML NEBU ONE (16:11)
[2021-10-26] MEDS ORDERED: IPRATROPIUM BROMIDE 0.5 MG/2.5 ML NEBU ONE (16:15)
--- NOTE | 2021-10-26 16:45 | NUR ---
Son/ Myron came in and seen the patient. Daughter in law/ Zulma spoke with the Hospitalist Agata Kwok.
[2021-10-26] MEDS: ENSURE WITH FIBER 237 ML LIQUID (CHOCOLATE) PO SCH (17:00)
[2021-10-26] MEDS ORDERED: HUM INSULIN NPH/REG INSULIN HM 70/30 1000 UNITS/10 ML VIAL SQ ONE (17:43)
[2021-10-26] MEDS ORDERED: LISINOPRIL 10 MG TABLET ONE (18:15)
--- NOTE | 2021-10-26 18:56 | NUR ---
Notified nursing shed workers supervisor of the need for sitter.
--- NOTE | 2021-10-26 19:30 | NUR ---
Urine output: 950ml. BM=0 Pt ate some chips, fruits and eclair.
--- NOTE | 2021-10-26 19:52 | NUR ---
1900 Pt accidentally removed her IV again. Bruising noticed on pt's left forearm. Pt is on Eliquis. Seen by Dr. Yepez. No levophed was injected on this IV site (Left AC). Pt went to CTA at around 1300 , family visited and pt has no bruising earlier than 1900.
--- NOTE | 2021-10-26 19:54 | NUR ---
Report given to
[2021-10-26] MEDS ORDERED: methylPREDNISolone SOD SUCC 40 MG/ML VIAL ONE (20:05)
[2021-10-26] MEDS: methylPREDNISolone SOD SUCC 40 MG/ML VIAL IV SCH (20:08)
[2021-10-26] MEDS ORDERED: ATORVASTATIN 20 MG TABLET PO SCH (21:00)
[2021-10-26] MEDS ORDERED: TEMAZEPAM 15 MG CAPSULE PO PRN (21:00)
[2021-10-26] MEDS ORDERED: QUETIAPINE FUMARATE 25 MG TABLET PO SCH (21:00)
[2021-10-26] MEDS ORDERED: MONTELUKAST SODIUM 10 MG TABLET PO SCH (21:00)
[2021-10-26] MEDS ORDERED: ATORVASTATIN 10 MG TABLET PO SCH (21:00)
[2021-10-26] MEDS ORDERED: MIRTAZAPINE 15 MG TABLET PO SCH (21:00)
[2021-10-26] MEDS ORDERED: QUETIAPINE FUMARATE 25 MG TABLET ONE (22:31)
[2021-10-26] MEDS ORDERED: MONTELUKAST SODIUM 10 MG TABLET ONE (22:32)
[2021-10-27] MEDS ORDERED: methylPREDNISolone SOD SUCC 40 MG/ML VIAL ONE ×2 (01:30→09:13)
[2021-10-27] MEDS: methylPREDNISolone SOD SUCC 40 MG/ML VIAL IV SCH ×2 (01:36→09:26)
[2021-10-27] MEDS: PANTOPRAZOLE SODIUM 40 MG TABLET.DR PO SCH (07:00)
--- NOTE | 2021-10-27 07:10 | NUR ---
Received pt. in bed sleeping intermittently sitter at bedside. vitals stable.
[2021-10-27] MEDS: BLOOD SUGAR DIAGNOSTIC 1 EACH STRIP VI SCH ×2 (07:30→11:55)
--- NOTE | 2021-10-27 09:00 | NUR ---
medications not scan scanner in the unit not working. Will continue with care plan.
[2021-10-27] MEDS ORDERED: PANTOPRAZOLE SODIUM 40 MG TABLET.DR PO ONE (09:11)
[2021-10-27] MEDS ORDERED: DICYCLOMINE HCL LIQ 10 MG/5 ML UDC ONE ×2 (09:13→13:02)
[2021-10-27] MEDS ORDERED: CARVEDILOL 12.5 MG TABLET ONE (09:14)
[2021-10-27] MEDS ORDERED: FUROSEMIDE 40 MG TABLET ONE (09:15)
[2021-10-27] MEDS ORDERED: FOLIC ACID 1 MG TABLET ONE (09:15)
[2021-10-27] MEDS ORDERED: MAGNESIUM OXIDE 400 MG TABLET ONE (09:15)
[2021-10-27] MEDS ORDERED: AMLODIPINE 5 MG TABLET ONE (09:17)
[2021-10-27] MEDS ORDERED: LISINOPRIL 10 MG TABLET ONE (09:17)
[2021-10-27] MEDS ORDERED: ASCORBIC ACID 500 MG TABLET ONE (09:17)
[2021-10-27] MEDS: DICYCLOMINE HCL 20 MG TABLET PO SCH ×2 (09:27→13:03)
[2021-10-27] MEDS: MAGNESIUM OXIDE 250 MG TABLET PO SCH (09:27)
[2021-10-27] MEDS: ENSURE WITH FIBER 237 ML LIQUID (CHOCOLATE) PO SCH (09:27)
[2021-10-27] MEDS: FUROSEMIDE 40 MG TABLET PO SCH (09:27)
[2021-10-27] MEDS: CARVEDILOL 12.5 MG TABLET PO SCH (09:27)
[2021-10-27] MEDS: FOLIC ACID 1 MG TABLET PO SCH (09:27)
[2021-10-27 09:28] VITALS: BP 118/54
[2021-10-27] MEDS: LISINOPRIL 20 MG TABLET PO SCH (09:28)
[2021-10-27] MEDS: AMLODIPINE 10 MG TABLET PO SCH (09:28)
[2021-10-27] MEDS: ASCORBIC ACID 500 MG TABLET PO SCH (09:28)
[2021-10-27] MEDS: MEMANTINE HCL 10 MG TABLET PO SCH (09:30)
[2021-10-27] MEDS: APIXABAN 2.5 MG TABLET PO SCH (09:30)
[2021-10-27] MEDS: FERROUS SULFATE 325 MG TABEC PO SCH (09:30)
[2021-10-27] MEDS: INSULIN REGULAR, HUMAN 300 UNIT/3 ML VIAL SQ PRN ×2 (09:39→11:59)
--- NOTE | 2021-10-27 09:41 | NUR ---
morning medications note scan, pharmacist informed scanner not working on this or other computers.
--- NOTE | 2021-10-27 10:30 | NUR ---
Patient stating "I'm leaving and started to get agitated" One: to one sitter at bedside.
[2021-10-27] MEDS ORDERED: LORAZEPAM 1 MG TABLET ONE (11:42)
--- NOTE | 2021-10-27 11:43 | NUR ---
Patient remains restless and agitated this time screaming and been verbally aggressive and rude towards staff. this time attempted to throw water on the staff. patient reoriented, and educated on release or dcd home criteria.
[2021-10-27] MEDS ORDERED: METH4TAB3 PO (12:40)
[2021-10-27 13:08] LABS: HEMATOCRIT 27.4 % (31.2-41.9); MEAN CORPUSCULAR HEMOGLOBIN 26.3 uug (24.7-32.8); MEAN CORPUSCULAR VOLUME 80.3 fL (75.5-95.3); PLATELET COUNT (AUTO) 157 K/uL (179-408)
[2021-10-27 13:12] LABS: CREATININE 1.1 mg/dL (0.6-1.3)
[2021-10-27 13:15] LABS: PHOSPHOROUS 3.7 mg/dL (2.5-4.9)
[2021-10-27 13:25] LABS: THYROID STIMULATING HORMONE 0.506 mIU/mL (0.358-3.740)
--- NOTE | 2021-10-27 14:15 | NUR ---
Pt's son Mr. Sanches in the unit to belt picker pt. DCD instruction given to son who signed for all the documents. Patient wheeled to front door via wheelchair. vitals stable HR o 69 sbp pf 143/72. saturation 96% on RA.
[2021-10-28] MEDS ORDERED: METFORMIN HCL 500 MG TABLET PO SCH ×2 (09:00→18:00)
== END 2021-10-27 14:43 | disposition home or self-care (01) | DRG 291 ==
LOC: ER 22:29 → TRANSITION 10-26 02:30
PROVIDERS: ADMIT Nurse Practitioner Acute Care; ATTEND Nurse Practitioner Acute Care
PROC: 05H533Z Insertion of Infusion Device into Right Subclavian Vein, Percutaneous Approach (ICD-10-PCS; principal; 2021-10-26)
PROC: B546ZZA Ultrasonography of Right Subclavian Vein, Guidance (ICD-10-PCS; 2021-10-26)
DX: I11.0 Hypertensive heart disease with heart failure (principal); I50.33 Acute on chronic diastolic (congestive) heart failure; J96.01 Acute respiratory failure with hypoxia; E87.1 Hypo-osmolality and hyponatremia; I48.20 Chronic atrial fibrillation, unspecified; J44.1 Chronic obstructive pulmonary disease with (acute) exacerbation; E11.9 Type 2 diabetes mellitus without complications; F17.210 Nicotine dependence, cigarettes, uncomplicated; Z79.01 Long term (current) use of anticoagulants; Z79.84 Long term (current) use of oral hypoglycemic drugs; Z95.0 Presence of cardiac pacemaker; Z95.2 Presence of prosthetic heart valve; Z20.822 Contact with and (suspected) exposure to COVID-19
CPT/HCPCS: 36415; 36600; 71045; 71275; 83605; 83735; 84100; 84443; 84484; 85025; 93005; 94640; A4663; G0378; J1815; J1940; J2920; J3590; Q9967

== ENCOUNTER 2021-11-10 19:54 | Inpatient (IN) | payer MEDICARE, OTHER ==
[~2021-11-10] VITALS: Ht 162.6 cm; Wt 57.2 kg
[~2021-11-10 19:54] MED LIST changes: -ASCO500T10 PO; -ATOR10TA PO; +ATOR20TA PO; +FERR325T28 PO; -HYOS0.1273 PO; -ISOS60TA72 PO; -LUBI24CA5 PO; +METH4TAB3 PO; -MIRT-93 PO; -MONT10TA33 PO; -PANT40TA49 PO; -UMEC1BLS IH; -VITAMIN D PO
[2021-11-10] MEDS ORDERED: IPRATROPIUM BROMIDE 0.5 MG/2.5 ML NEBU NEB ONE (20:15)
[2021-11-10] MEDS ORDERED: ALBUTEROL SULFATE 2.5 MG/3 ML NEBU NEB ONE (20:15)
[2021-11-10] MEDS ORDERED: NITROGLYCERIN OINT 1 GM PACKET TP ONE ×2 (20:15→21:19)
[2021-11-10] MEDS ORDERED: FUROSEMIDE 40 MG/4 ML VIAL IV ONE (20:15)
[2021-11-10 20:35] LABS: HEMATOCRIT 28.6 % (31.2-41.9); MEAN CORPUSCULAR HEMOGLOBIN 26.8 uug (24.7-32.8); MEAN CORPUSCULAR VOLUME 83.3 fL (75.5-95.3); PLATELET COUNT (AUTO) 216 K/uL (179-408)
[2021-11-10 20:47] LABS: CARBON DIOXIDE 27 mmol/L (21-32); CHLORIDE 96 mmol/L (98-107); CREATININE 0.8 mg/dL (0.6-1.3); GLUCOSE 193 mg/dL (74-106); UREA NITROGEN, BLOOD 13 mg/dL (7-18)
[2021-11-10 21:00] LABS: ALANINE AMINOTRANSFERASE 23 U/L (14-59); ALKALINE PHOSPHATASE 58 U/L (50-136); ASPARTATE AMINOTRANSFERASE 14 U/L (15-37); BILIRUBIN,DIRECT 0.3 mg/dL (0.0-0.2); BILIRUBIN,TOTAL 0.7 mg/dL (0.2-1.0); TOTAL PROTEIN, SERUM 7.3 g/dL (6.4-8.2)
[2021-11-10] MEDS ORDERED: ALBUTEROL SULFATE 2.5 MG/3 ML NEBU ONE (21:06)
[2021-11-10] MEDS ORDERED: IPRATROPIUM BROMIDE 0.5 MG/2.5 ML NEBU ONE (21:06)
[2021-11-10 21:17] LABS: MAGNESIUM 1.7 mg/dL (1.8-2.4)
[2021-11-10] MEDS ORDERED: FUROSEMIDE 40 MG/4 ML VIAL ONE (21:18)
--- NOTE | 2021-11-10 22:09 | NUR ---
Called [facility] for panel call. Dr. Stafford is the decision support manager physician.
[2021-11-10] MEDS ORDERED: CYANOCOBALAMIN 1000 MCG/ML VIAL IM ONE (22:15)
--- NOTE | 2021-11-10 22:19 | NUR ---
Dr. Park on panel call with Dr. Rivera Kessler.
[2021-11-10] MEDS ORDERED: IPRATROPIUM BROMIDE 0.5 MG/2.5 ML NEBU NEB PRN (23:15)
[2021-11-10] MEDS ORDERED: ONDANSETRON 4 MG/2 ML VIAL IV PRN (23:15)
[2021-11-10] MEDS ORDERED: MAGNESIUM HYDROXIDE 30 ML LIQUID UDC PO PRN (23:15)
[2021-11-10] MEDS ORDERED: LORAZEPAM 0.5 MG TABLET PO PRN (23:15)
[2021-11-10] MEDS ORDERED: ALBUTEROL SULFATE 2.5 MG/ 0.5 ML NEBU NEB PRN (23:15)
[2021-11-10] MEDS ORDERED: ACETAMINOPHEN 325 MG TABLET PO PRN (23:15)
[2021-11-10] MEDS ORDERED: MAGNESIUM SULFATE/D5W 300 ML ONE (23:41)
[2021-11-10] MEDS ORDERED: CYANOCOBALAMIN 1000 MCG/ML VIAL ONE (23:42)
[2021-11-10] MEDS ORDERED: levoFLOXacin 500 MG/D5W 500 MG in PREMIXED 1 EACH IV SCH (23:45)
[2021-11-10] MEDS ORDERED: TEMAZEPAM 7.5 MG CAPSULE PO PRN (23:45)
[2021-11-11 00:05] LABS: ABG BASE EXCESS 0.5 mmol/L; ABG HCO3 27.8 mmol/L; ABG PCO2 58.4 mmHg (35.0-45.0); ABG PH 7.295 (7.350-7.450); ABG PO2 77.4 mmHg (75.0-100.0); ABG SITE RIGHT RADIAL; ABG TOTAL HEMOGLOBIN 10.3 G/dL (12.0-16.0); COHb 1.1 % (0.5-1.5); MetHb 0.1 % (0.0-1.5); O2Hb 92.9 % (94.0-97.0); VENT MODE BIPAP
[2021-11-11] MEDS: MAGNESIUM SULFATE/D5W 100 ML IV SCH ×3 (00:16→02:42)
[2021-11-11] MEDS: CARVEDILOL 12.5 MG TABLET PO SCH ×3 (00:23→16:55)
[2021-11-11] MEDS: LISINOPRIL 20 MG TABLET PO SCH ×3 (00:23→16:56)
[2021-11-11] MEDS ORDERED: levoFLOXacin 500 MG/D5W 100 ML ONE (00:41)
[2021-11-11 05:10] VITALS: BP 134/76
[2021-11-11] MEDS: methylPREDNISolone SOD SUCC 40 MG/ML VIAL IV SCH ×3 (05:17→21:07)
[2021-11-11 06:19] LABS: HEMATOCRIT 26.6 % (31.2-41.9); MEAN CORPUSCULAR HEMOGLOBIN 26.5 uug (24.7-32.8); MEAN CORPUSCULAR VOLUME 82.2 fL (75.5-95.3); PLATELET COUNT (AUTO) 151 K/uL (179-408)
[2021-11-11] MEDS: PANTOPRAZOLE SODIUM 40 MG TABLET.DR PO SCH (06:31)
[2021-11-11 06:47] LABS: BILIRUBIN,TOTAL 0.8 mg/dL (0.2-1.0); CREATININE 0.8 mg/dL (0.6-1.3); MAGNESIUM 2.7 mg/dL (1.8-2.4); PHOSPHOROUS 4.7 mg/dL (2.5-4.9); POTASSIUM 4.1 mmol/L (3.5-5.1); TOTAL PROTEIN, SERUM 6.7 g/dL (6.4-8.2)
[2021-11-11 06:59] LABS: THYROID STIMULATING HORMONE 1.277 mIU/mL (0.358-3.740)
[2021-11-11 08:00] VITALS: BP 166/65
--- NOTE | 2021-11-11 08:00 | NUR ---
awake alert and oriented but forgetful, on 2l/nc,sat at 95%, dyspneic on exertion, sitting in bed, arcade game technician here to do echocardiogram, safety measurers maintained, call light within reach, tele a fib with v paced beats
[2021-11-11] MEDS ORDERED: MAGNESIUM OXIDE 400 MG TABLET PO SCH (09:00)
[2021-11-11] MEDS ORDERED: MAGNESIUM OXIDE 250 MG TABLET PO SCH (09:00)
[2021-11-11] MEDS: FLUTICASONE/VILANTEROL 1 EACH BLST.W.DEV INH SCH (09:25)
[2021-11-11] MEDS: FUROSEMIDE 20 MG/2 ML VIAL IV SCH (09:26)
[2021-11-11] MEDS: APIXABAN 2.5 MG TABLET PO SCH ×2 (09:31→20:46)
[2021-11-11] MEDS: DICYCLOMINE HCL 20 MG TABLET PO SCH ×3 (09:32→16:56)
[2021-11-11] MEDS: FOLIC ACID 1 MG TABLET PO SCH (09:32)
[2021-11-11] MEDS: AMLODIPINE 10 MG TABLET PO SCH (09:32)
[2021-11-11] MEDS: METFORMIN HCL 500 MG TABLET PO SCH ×2 (09:32→16:56)
[2021-11-11] MEDS: MEMANTINE HCL 10 MG TABLET PO SCH ×2 (09:32→16:56)
--- NOTE | 2021-11-11 11:50 | NUR ---
seen by Dr Johnson
[2021-11-11 12:00] VITALS: BP 122/49
[2021-11-11 16:15] VITALS: BP 137/62
--- NOTE | 2021-11-11 16:19 | NUR ---
slept in between care, no distress noted, needs attended
--- NOTE | 2021-11-11 18:27 | NUR ---
ni distress noted, calm at this time, remains on vpaced ULR afid controlled, safety measures maintained
[2021-11-11 19:58] VITALS: BP 131/77
--- NOTE | 2021-11-11 20:00 | NUR ---
PATIENT IN BED ALERT AND AWAKE , NO RESPIRATORY DISTRESS NOTED BREATHING EVEN AND UNLABORED . TOLERATING OXYGEN AT 1 LITER /MIN NASAL CANNULA .HOB UP . CALL LIGHT PLACED WITH IN REACH ADVISED PATIENT TO CALL FOR HELP AND NOT TO GET OOB BY SELF .
[2021-11-11] MEDS: ATORVASTATIN 20 MG TABLET PO SCH (20:45)
[2021-11-11] MEDS: DOCUSATE SODIUM 100 MG CAPSULE PO SCH (20:45)
--- NOTE | 2021-11-11 20:46 | NUR ---
TOOK PO MEDICATIONS WITH WATER TOLERATED .
--- NOTE | 2021-11-11 21:45 | NUR ---
ASSISTED OOB TO THE BEDSIDE COMMODE ,PATIENT VOIDED AND HAD A MODERATE AMT OF BM .
[2021-11-12] VITALS: BP 128/59
[2021-11-12] MEDS ORDERED: levoFLOXacin 500 MG/D5W 500 MG in PREMIXED 1 EACH IV SCH ×2
[2021-11-12 04:00] VITALS: BP 134/44
--- NOTE | 2021-11-12 05:30 | NUR ---
OOB ASSISTED BEDSIDE COMMODE ,HAD A BM AND URINATED .
--- NOTE | 2021-11-12 06:00 | NUR ---
PLACED H/L NO. 22 RIGHT WRIST ATTEMPTED X1 ,LEFT HAND HEPLOCK LEAKING D/C .
[2021-11-12] MEDS: PANTOPRAZOLE SODIUM 40 MG TABLET.DR PO SCH (06:51)
[2021-11-12] MEDS: methylPREDNISolone SOD SUCC 40 MG/ML VIAL IV SCH ×2 (06:51→20:33)
[2021-11-12 08:50] VITALS: BP 125/65
--- NOTE | 2021-11-12 09:00 | NUR ---
Assumed care for patient at this time. Alert and oriented x3. No ss of pain or resp distress. Being seen by Dr. Martin with order to try patient on room air. Patient is satting 97% on 1 lpm nc.
[2021-11-12] MEDS: METFORMIN HCL 500 MG TABLET PO SCH ×2 (09:06→16:21)
[2021-11-12] MEDS: FOLIC ACID 1 MG TABLET PO SCH (09:06)
[2021-11-12] MEDS: MEMANTINE HCL 10 MG TABLET PO SCH ×2 (09:07→16:20)
[2021-11-12] MEDS: LISINOPRIL 20 MG TABLET PO SCH ×2 (09:07→16:21)
[2021-11-12] MEDS: AMLODIPINE 10 MG TABLET PO SCH (09:07)
[2021-11-12] MEDS: DICYCLOMINE HCL 20 MG TABLET PO SCH ×3 (09:07→16:21)
[2021-11-12] MEDS: APIXABAN 2.5 MG TABLET PO SCH ×2 (09:08→21:31)
[2021-11-12] MEDS: CARVEDILOL 12.5 MG TABLET PO SCH ×2 (09:08→16:21)
[2021-11-12] MEDS: FUROSEMIDE 20 MG/2 ML VIAL IV SCH (09:09)
--- NOTE | 2021-11-12 09:34 | NUR ---
rechecked o2 sat on room air noted 99%. denies dyspnea or chest pain. no sob noted. will cont to monitor
[2021-11-12 09:51] LABS: HEMATOCRIT 28.7 % (31.2-41.9); MEAN CORPUSCULAR HEMOGLOBIN 26.6 uug (24.7-32.8); MEAN CORPUSCULAR VOLUME 82.4 fL (75.5-95.3); PLATELET COUNT (AUTO) 179 K/uL (179-408)
[2021-11-12 09:59] LABS: CREATININE 1.2 mg/dL (0.6-1.3); POTASSIUM 4.4 mmol/L (3.5-5.1)
[2021-11-12] MEDS: FLUTICASONE/VILANTEROL 1 EACH BLST.W.DEV INH SCH (10:14)
[2021-11-12 11:53] VITALS: BP 115/49
--- NOTE | 2021-11-12 16:13 | NUR ---
Patient is agitated, wanting to leave the hospital, removing her gown and IV access, refusing to listen and states she is going home. Informed Dr. Stafford with order for ativan 1mg po one time noted. Addendum: 11/12/21 at 1628 by JÚNIOR THOMASON RN Patient also removed her telemonitor despite explanation of r/b explained. Unable to be redirected.
[2021-11-12 16:18] VITALS: BP 156/61
[2021-11-12] MEDS ORDERED: LORAZEPAM 1 MG TABLET PO ONE (16:30)
[2021-11-12 20:00] VITALS: BP 140/59
--- NOTE | 2021-11-12 20:00 | NUR ---
RECEIVED REPORT FROM AM NURSE PT IS ALERT AND ORIENTED X 4 NO SIGNS OF RESPIRATORY DISTRESS NOTED. PT BECAME BELLIGERENT WANTED TO GO HOME TALKED WITH FAMILY MEMBER PT STATES ' GIVE ATIVAN TALKED WITH DR JULIAN SALGADO PT WOULDN'T ACCEPLT WHAT HE WAS SAYING HAD TEQUILA DO CALLED AND DR JORDAN WAS CALLED AGAIN ORDERED ATIVAN AND HALDOL INJECTION POT TOLERATED WELL PT IS STILL SLEEPING CHECKED ON PT THROUGHOUT THE SHIFT. WILL CONTINUE TO MONITOR FOR FALLS AND COMBATIVE BEHAVIOR.
[2021-11-12] MEDS ORDERED: LORAZEPAM 2 MG/1 ML VIAL IV STA (20:25)
[2021-11-12] MEDS ORDERED: HALOPERIDOL LACTATE 5 MG/1 ML VIAL IM STA (20:25)
[2021-11-12] MEDS ORDERED: LORAZEPAM 2 MG/1 ML VIAL IV PRN (20:30)
[2021-11-12] MEDS ORDERED: HALOPERIDOL LACTATE 5 MG/1 ML VIAL IM PRN (20:30)
[2021-11-12] MEDS: ATORVASTATIN 20 MG TABLET PO SCH (21:26)
[2021-11-12] MEDS: DOCUSATE SODIUM 100 MG CAPSULE PO SCH (21:27)
[2021-11-13] VITALS: BP 135/55
[2021-11-13] MEDS ORDERED: LEVOFLOXACIN/D5W 250 MG in PREMIX 1 EA IV SCH ×2
[2021-11-13 04:00] VITALS: BP 138/52
[2021-11-13] MEDS: PANTOPRAZOLE SODIUM 40 MG TABLET.DR PO SCH (06:32)
[2021-11-13] MEDS ORDERED: METH4TAB3 PO (08:30)
[2021-11-13] MEDS ORDERED: LEVO750T46 PO (08:30)
[2021-11-13] MEDS ORDERED: FUROSEMIDE 20 MG TABLET PO SCH (09:00)
[2021-11-13] MEDS: METFORMIN HCL 500 MG TABLET PO SCH (09:59)
[2021-11-13] MEDS: CARVEDILOL 12.5 MG TABLET PO SCH (09:59)
[2021-11-13] MEDS: DICYCLOMINE HCL 20 MG TABLET PO SCH ×2 (09:59→13:29)
[2021-11-13] MEDS: FLUTICASONE/VILANTEROL 1 EACH BLST.W.DEV INH SCH (09:59)
[2021-11-13] MEDS: MEMANTINE HCL 10 MG TABLET PO SCH (09:59)
[2021-11-13] MEDS: FOLIC ACID 1 MG TABLET PO SCH (10:00)
[2021-11-13] MEDS ORDERED: GLUCERNA SHAKE 237 ML CAN PO SCH (10:00)
[2021-11-13] MEDS ORDERED: NUTRISOURCE FIBER 4 GM PACKET PO SCH (10:00)
[2021-11-13] MEDS: LISINOPRIL 20 MG TABLET PO SCH (10:00)
[2021-11-13] MEDS ORDERED: PROTEIN SUPPLEMENT (PROSTAT) 30 ML LIQUID PO SCH (10:00)
[2021-11-13] MEDS: methylPREDNISolone SOD SUCC 40 MG/ML VIAL IV SCH (10:01)
[2021-11-13] MEDS: AMLODIPINE 10 MG TABLET PO SCH (10:01)
[2021-11-13] MEDS: APIXABAN 2.5 MG TABLET PO SCH (10:02)
[2021-11-13 11:02] VITALS: BP 149/95
--- NOTE | 2021-11-13 11:07 | NUR ---
Rec'd patient in bed, awake, alert and oriented; able to verbalize needs. Patient denies any pain, no physical or respiratory distress noted. Call light within reach and safety measures in place.
--- NOTE | 2021-11-13 12:45 | NUR ---
11/13/2021 [facility] HOME: [id number] [place] [id number], [place] (WITH DAUGHTER, UMA)
[2021-11-13] MEDS ORDERED: IPRATROPIUM BROMIDE 0.5 MG/2.5 ML NEBU NEB PRN (13:29)
--- NOTE | 2021-11-13 14:16 | NUR ---
1:45PM-Patient was discharge home, picked up via private with [facility] [place] [address], [place] , teaching on her health maintenance regimen, adherence provided with good verbal demonstration. Patient left in stable conditions: vs as follows : bp 136/78, p84, r20, t97.1, 0/10, oxygen level 96% on R/A, instructions given to use oxygen via nc PRN as ordered by .
== END 2021-11-13 13:45 | disposition home health service (06) | DRG 291 ==
LOC: ER 19:56 → TELE3 23:36 → TELE-TD3 11-11 00:12 → TELE3 11-12 09:03 → MEDSURG3 11-13 08:36
PROVIDERS: ADMIT Internal Medicine; ATTEND Internal Medicine
PROC: 5A09357 Assistance with Respiratory Ventilation, Less than 24 Consecutive Hours, Continuous Positive Airway Pressure (ICD-10-PCS; principal; 2021-11-10)
DX: I11.0 Hypertensive heart disease with heart failure (principal); G92.8 Other toxic encephalopathy; J96.21 Acute and chronic respiratory failure with hypoxia; I50.31 Acute diastolic (congestive) heart failure; J44.1 Chronic obstructive pulmonary disease with (acute) exacerbation; D68.59 Other primary thrombophilia; E87.1 Hypo-osmolality and hyponatremia; I48.20 Chronic atrial fibrillation, unspecified; K59.00 Constipation, unspecified; E11.9 Type 2 diabetes mellitus without complications; E78.5 Hyperlipidemia, unspecified; E83.42 Hypomagnesemia; F03.90 Unspecified dementia, unspecified severity, without behavioral disturbance, psychotic disturbance, mood disturbance, and anxiety; F17.210 Nicotine dependence, cigarettes, uncomplicated; G89.29 Other chronic pain; I25.10 Atherosclerotic heart disease of native coronary artery without angina pectoris; I27.20 Pulmonary hypertension, unspecified; M19.90 Unspecified osteoarthritis, unspecified site; Z20.822 Contact with and (suspected) exposure to COVID-19; Z95.0 Presence of cardiac pacemaker; Z95.2 Presence of prosthetic heart valve; Z74.09 Other reduced mobility; N28.1 Cyst of kidney, acquired; D63.8 Anemia in other chronic diseases classified elsewhere; D50.9 Iron deficiency anemia, unspecified
CPT/HCPCS: 36415; 36600; 71045; 83550; 83605; 83735; 83921; 84100; 84443; 84484; 85025; 87040; 93005; 93307; 94660; A4663; G0378; J1630; J1940; J1956; J2060; J2920; J3420; J3475; J3590; J7040

== ENCOUNTER 2021-12-19 10:18 | Inpatient (IN) | payer MEDICARE, OTHER ==
[~2021-12-19] VITALS: Ht 154.9 cm; Wt 57.6 kg
[~2021-12-19 10:18] MED LIST changes: +LEVO750T46 PO
[2021-12-19] MEDS ORDERED: IV NORMAL SALINE 500 ML BAG IV ONE (10:30)
[2021-12-19] MEDS ORDERED: ONDANSETRON 4 MG/2 ML VIAL IV ONE (10:30)
[2021-12-19 10:47] LABS: HEMATOCRIT 24.5 % (31.2-41.9); MEAN CORPUSCULAR HEMOGLOBIN 27.1 uug (24.7-32.8); MEAN CORPUSCULAR VOLUME 79.7 fL (75.5-95.3); PLATELET COUNT (AUTO) 189 K/uL (179-408)
[2021-12-19] MEDS ORDERED: ONDANSETRON 4 MG/2 ML VIAL ONE (10:48)
[2021-12-19 11:03] LABS: CREATININE 0.8 mg/dL (0.6-1.3); POTASSIUM 4.7 mmol/L (3.5-5.1)
[2021-12-19 11:10] LABS: BILIRUBIN,DIRECT 0.2 mg/dL (0.0-0.2); BILIRUBIN,TOTAL 0.7 mg/dL (0.2-1.0)
--- NOTE | 2021-12-19 11:20 | NUR ---
DEMENTIAPT LAYING IN BED IN SEMIFOWLERS POSITION. IN NAD; VSS; PT ON 2LPM O2 VIA NC FOR O2 DEPENDENCY COPD. DENIES PAIN OR DISCOMFORT AT THIS TIME. PT STATES SHE WANTS TO GO HOME. REINFORCEMENT PROVIDED. PT IS A/O X2 AND HX OF DEMENTIA.
--- NOTE | 2021-12-19 11:25 | NUR ---
22G IV ESTABLISHED ON RT HAND. SECURED WITH TAPE. PT GILBERT. WELL
[2021-12-19 12:30] LABS: *BILIRUBIN,URIN NEGATIVE (NEGATIVE); *CLARITY,URINE CLEAR (CLEAR); *COLOR,URINE YELLOW (YELLOW); *KETONES,URINE NEGATIVE (NEGATIVE); *UROBILINOGEN,URINE 0.2 E.U./dl (NORMAL); LEUKOCYTE ESTERASE ,URINE NEGATIVE (NEGATIVE); NITRITE, URINE NEGATIVE (NEGATIVE); UGLUCOSE NEGATIVE (NEGATIVE)
[2021-12-19 12:35] LABS: *BLOOD, URINE TRACE (NEGATIVE)
[2021-12-19 12:45] LABS: BACTERIA,URINE NONE SEEN /HPF (NONE SEEN); RBC,URINE 0-3 /HPF (0-3); SQUAMOUS EPITHELIAL CELL,UR FEW /HPF (NONE SEEN); WBC,URINE 0-3 /HPF (0-3)
[2021-12-19] MEDS ORDERED: FUROSEMIDE 40 MG/4 ML VIAL IV ONE (13:15)
[2021-12-19] MEDS ORDERED: LORAZEPAM 0.5 MG TABLET PO ONE (13:15)
[2021-12-19] MEDS ORDERED: FUROSEMIDE 40 MG/4 ML VIAL ONE (13:37)
[2021-12-19] MEDS ORDERED: LORAZEPAM 0.5 MG TABLET ONE ×2 (13:38→16:35)
[2021-12-19] MEDS ORDERED: ACETAMINOPHEN 325 MG TABLET PO PRN (14:45)
[2021-12-19] MEDS ORDERED: REMEDY ESSENTIAL ZINC PASTE 113 GM TP PRN (14:45)
[2021-12-19] MEDS ORDERED: ONDANSETRON 4 MG/2 ML VIAL IV PRN (14:45)
[2021-12-19] MEDS ORDERED: MORPHINE SULFATE 2 MG/1 ML DISP.SYRIN IV PRN (14:45)
[2021-12-19] MEDS ORDERED: MAGNESIUM HYDROXIDE 30 ML LIQUID UDC PO PRN (14:45)
--- NOTE | 2021-12-19 16:30 | NUR ---
PT IS VERY ANXIOUS; CONSTANT REINFORCEMENT AND ORIENTATION GIVEN. PT PULLED OUT IV . ER NOTIFIED
[2021-12-19] MEDS: LORAZEPAM 0.5 MG TABLET PO PRN (16:36)
--- NOTE | 2021-12-19 17:48 | NUR ---
SBAR TO COTY RN; PT PLACED IN WC AND MOVED TO RM 308; BELONGINGS WITH THE PATIENT. DENTURE TOP AND BOTTOM ARE IN A BELONGIONGS BAG AND WILL HANDOFF TO THE TELE NURSE.
[2021-12-19 18:44] VITALS: BP 125/47
[2021-12-19 20:00] VITALS: BP 144/76
[2021-12-19] MEDS: CARVEDILOL 12.5 MG TABLET PO SCH (20:52)
[2021-12-19] MEDS: MAGNESIUM OXIDE 400 MG TABLET PO SCH (20:54)
[2021-12-19] MEDS: MEMANTINE HCL 10 MG TABLET PO SCH (20:54)
[2021-12-19] MEDS: DICYCLOMINE HCL 20 MG TABLET PO SCH (20:54)
[2021-12-19] MEDS: APIXABAN 2.5 MG TABLET PO SCH (20:55)
[2021-12-19] MEDS ORDERED: LISINOPRIL 20 MG TABLET PO SCH (21:00)
[2021-12-19] MEDS ORDERED: ATORVASTATIN 20 MG TABLET PO SCH (21:00)
[2021-12-19] MEDS ORDERED: FUROSEMIDE 40 MG/4 ML VIAL IV SCH (21:00)
[2021-12-20 00:45] VITALS: BP 119/58
[2021-12-20 04:48] VITALS: BP 123/51
[2021-12-20 07:06] LABS: MEAN CORPUSCULAR HEMOGLOBIN 27.2 uug (24.7-32.8); MEAN CORPUSCULAR VOLUME 79.4 fL (75.5-95.3); PLATELET COUNT (AUTO) 185 K/uL (179-408)
[2021-12-20 07:21] LABS: CREATININE 0.9 mg/dL (0.6-1.3); MAGNESIUM 1.7 mg/dL (1.8-2.4); PHOSPHOROUS 5.2 mg/dL (2.5-4.9); POTASSIUM 4.1 mmol/L (3.5-5.1)
[2021-12-20] MEDS ORDERED: AMLODIPINE 10 MG TABLET PO SCH (09:00)
[2021-12-20] MEDS ORDERED: PANTOPRAZOLE SODIUM 40 MG VIAL IV SCH (09:00)
[2021-12-20] MEDS ORDERED: LISINOPRIL 20 MG TABLET PO SCH (09:00)
[2021-12-20] MEDS ORDERED: FUROSEMIDE 40 MG TABLET PO SCH (09:00)
[2021-12-20] MEDS ORDERED: FOLIC ACID 1 MG TABLET PO SCH (09:00)
[2021-12-20] MEDS: DICYCLOMINE HCL 20 MG TABLET PO SCH ×2 (09:07→12:58)
[2021-12-20] MEDS: MEMANTINE HCL 10 MG TABLET PO SCH (09:07)
[2021-12-20] MEDS: MAGNESIUM OXIDE 400 MG TABLET PO SCH (09:07)
[2021-12-20] MEDS: APIXABAN 2.5 MG TABLET PO SCH (09:11)
[2021-12-20] MEDS: CARVEDILOL 12.5 MG TABLET PO SCH (09:11)
--- NOTE | 2021-12-20 09:37 | NUR ---
Patient awake, oriented x 2. Welsh speaking but able to make needs known in [place]ese. Eating at bedside. PT done, walked to the [address] way and back. PT states that patient appears to be SOB after PT but SPo2 reading at 98% at the moment. Vpacing at 61 in the monitor. Denies pain. O2 2L NC. penitentiary assessment done, NO signs of skin break down. Safety initiated. Will continue to monitor.
[2021-12-20] MEDS: LORAZEPAM 0.5 MG TABLET PO PRN (09:52)
[2021-12-20 11:00] VITALS: BP 106/66
--- NOTE | 2021-12-20 11:05 | NUR ---
Ambulated the patient with a FWW around the unit. Tolerated it well. No signs of SOB and denies pain. Will continue to monitor.
[2021-12-20] MEDS ORDERED: MAGNESIUM OXIDE 400 MG TABLET PO ONE (12:00)
[2021-12-20] MEDS ORDERED: LORA-258 PO (12:42)
[2021-12-20] MEDS ORDERED: LORA0.5T48 PO (13:09)
--- NOTE | 2021-12-20 13:30 | NUR ---
Pt. daughter in law here for knot picker cloth. Pt denies pain or SOB. IV removed with angio cath intact. Pt discharged safely to her vehicle via wheelchair. All belongings sent with pt.
[2021-12-21] MEDS ORDERED: FUROSEMIDE 40 MG/4 ML VIAL IV SCH (09:00)
== END 2021-12-20 13:30 | disposition home health service (06) | DRG 291 ==
LOC: ER 10:18 → TELE3 14:00
PROVIDERS: ADMIT Nurse Practitioner Acute Care; ATTEND Nurse Practitioner Acute Care
DX: I11.0 Hypertensive heart disease with heart failure (principal); I50.33 Acute on chronic diastolic (congestive) heart failure; J96.21 Acute and chronic respiratory failure with hypoxia; I48.20 Chronic atrial fibrillation, unspecified; E11.9 Type 2 diabetes mellitus without complications; E78.5 Hyperlipidemia, unspecified; F17.200 Nicotine dependence, unspecified, uncomplicated; J44.9 Chronic obstructive pulmonary disease, unspecified; Z79.84 Long term (current) use of oral hypoglycemic drugs; Z95.0 Presence of cardiac pacemaker; Z95.2 Presence of prosthetic heart valve; Z99.81 Dependence on supplemental oxygen; Z79.01 Long term (current) use of anticoagulants; I25.10 Atherosclerotic heart disease of native coronary artery without angina pectoris; E03.9 Hypothyroidism, unspecified; F03.90 Unspecified dementia, unspecified severity, without behavioral disturbance, psychotic disturbance, mood disturbance, and anxiety; K74.60 Unspecified cirrhosis of liver; Z20.822 Contact with and (suspected) exposure to COVID-19; Z91.199 Patient's noncompliance with other medical treatment and regimen due to unspecified reason
CPT/HCPCS: 36415; 71045; 83690; 83735; 84100; 84443; 84484; 85025; 93005; A4663; C1758; C9113; G0378; J1940; J2405; J7040

== ENCOUNTER 2022-02-16 13:32 | Inpatient (IN) | END 2022-03-04 20:46 | disposition home health service (06) | DRG 871 | DX: A41.9 Sepsis, unspecified organism (principal); E43 Unspecified severe protein-calorie malnutrition; J96.21 Acute and chronic respiratory failure with hypoxia; N17.0 Acute kidney failure with tubular necrosis; G92.8 Other toxic encephalopathy; J18.9 Pneumonia, unspecified organism; J96.22 Acute and chronic respiratory failure with hypercapnia; R65.21 Severe sepsis with septic shock; I50.33 Acute on chronic diastolic (congestive) heart failure; L03.115 Cellulitis of right lower limb; L03.116 Cellulitis of left lower limb; J44.0 Chronic obstructive pulmonary disease with (acute) lower respiratory infection; I48.20 Chronic atrial fibrillation, unspecified; D68.69 Other thrombophilia; F03.92 Unspecified dementia, unspecified severity, with psychotic disturbance; J90 Pleural effusion, not elsewhere classified; E87.1 Hypo-osmolality and hyponatremia; I13.0 Hypertensive heart and chronic kidney disease with heart failure and stage 1 through stage 4 chronic kidney disease, or unspecified chronic kidney disease; Y93.9 Activity, unspecified; Y92.009 Unspecified place in unspecified non-institutional (private) residence as the place of occurrence of the external cause; D50.9 Iron deficiency anemia, unspecified; E11.22 Type 2 diabetes mellitus with diabetic chronic kidney disease; E78.5 Hyperlipidemia, unspecified; E83.39 Other disorders of phosphorus metabolism; E83.41 Hypermagnesemia; I25.10 Atherosclerotic heart disease of native coronary artery without angina pectoris; F17.200 Nicotine dependence, unspecified, uncomplicated; N18.9 Chronic kidney disease, unspecified; Z20.822 Contact with and (suspected) exposure to COVID-19; Z99.81 Dependence on supplemental oxygen; Z66 Do not resuscitate; Z79.01 Long term (current) use of anticoagulants; Z79.84 Long term (current) use of oral hypoglycemic drugs; Z79.899 Other long term (current) drug therapy; R19.5 Other fecal abnormalities; Z95.0 Presence of cardiac pacemaker; I27.20 Pulmonary hypertension, unspecified; G89.29 Other chronic pain; M19.90 Unspecified osteoarthritis, unspecified site; Z74.09 Other reduced mobility; K59.00 Constipation, unspecified; K74.60 Unspecified cirrhosis of liver; K21.9 Gastro-esophageal reflux disease without esophagitis; E87.5 Hyperkalemia; E83.42 Hypomagnesemia; Z68.24 Body mass index [BMI] 24.0-24.9, adult; N20.0 Calculus of kidney; Z95.2 Presence of prosthetic heart valve; M47.895 Other spondylosis, thoracolumbar region; M48.061 Spinal stenosis, lumbar region without neurogenic claudication; I70.8 Atherosclerosis of other arteries; K29.70 Gastritis, unspecified, without bleeding; S31.819A Unspecified open wound of right buttock, initial encounter; X58.XXXA Exposure to other specified factors, initial encounter ==